=== PATIENT | female | born 1955 | race Caucasian/White ===

== ENCOUNTER 2017-12-06 05:11 | Emergency (ER) | payer BC ==
[2017-12-06] MEDS ORDERED: Pepcid 20 MG VIAL IV ONE ×2 (05:32→05:49)
[2017-12-06] MEDS ORDERED: MORPHINE SULFATE 2 MG INJ IV ONE (05:32)
[2017-12-06] MEDS ORDERED: Phenergan 25 MG INJ IV ONE (05:32)
[2017-12-06 05:37] VITALS: O2SAT 100
[2017-12-06] MEDS ORDERED: Ativan 2 MG/1 ML VIAL IV ONE (05:37)
--- NOTE | 2017-12-06 05:43 | ERPHSYRPT ---
- History of Present Illness Historian: patient, family Patient Subjective Stated Complaint: pt arrives to ER with c/o chronic mid/ lower abdominal pain since 20 years old (diagnosed as "spasmatic stomach") that is exacerbated started early Sunday morning, went away on its own during the day, came back again yesterday evening and became worse approx 0400 this morning. pt is bellowing out loudly in pain and is not cooperative during assessment d/t excessive crying and moaning stating "I don't want to do it anymore". Also c/o nausea without vomiting, denies diarrhea, dysuria, hematura, blood in stool, fever or any other sx. Admits to using meth and marijuana to treat her pain. During doctor assessment pt becoming verbally aggressive with family. Triage Nursing Assessment: Pt hyperventilating with crying. Pt bowel sounds hypoactive states has been 2 days since last BM which is normal for her. pt abdomen is tender to touch but result may be skewed by fact pt is crying out in pain. Timing/Duration: yesterday, intermittent, gradual onset Activities at Onset: rest Quality: cramping, sharpness Abdominal Pain Onset Location: periumbilical Pain Radiation: no radiation Severity of Pain-Max: moderate Severity of Pain-Current: severe Modifying Factors: Improves With: other (states methamphetamine makes abdominal pain better) Associated Symptoms: heartburn, loss of appetite, nausea, No back, No chest pain , No diaphoresis, No diarrhea, No fever/chills, No shortness of breath, No syncope, No vomiting, No weakness Previous symptoms: same symptoms as today Hx Tetanus, Diphtheria Vaccination/Date Given: Yes Hx Influenza Vaccination/Date Given: Yes Hx Pneumococcal Vaccination/Date Given: Yes Immunizations Up to Date: Yes <MALIKA COLEMAN - Last Filed: 12/06/17 07:02> <EMMANUELLE WEINSTEIN - Last Filed: 12/06/17 08:01> - History of Present Illness Time Seen by Provider: 12/06/17 05:24 Physician History: Patient with history of chronic abdominal pain, presents with abdominal pain for past 2 days. States pain is in the periumbilical area, sharp constant and localized. Patient states pain increased in severity at around 4:30 this morning. Patient with nausea but denies vomiting/diarrhea, no fever, back pain or urinary symptoms. Patient admits to using marijuana daily and also methamphetamines to help with abdominal pain. Patient denies any chest pain, shortness of breath, palpitation, dizziness or weakness. Patient states last bowel movement was 2 days ago, which is not unusual. Patient's had multiple visits previously with abdominal pain and anxiety (MALIKA COLEMAN) Allergies/Adverse Reactions: No Known Drug Allergies Allergy (Verified 02/08/16 13:01) Home Medications: Albuterol Sulfate Mdi [Proair Hfa MDI] 1.25 mg NEB PRN 12/06/17 [History] Benzonatate 100 mg [Tessalon Perles 100 MG] 100 mg PO PRN 12/06/17 [ History] - Review of Systems Constitutional: No Fever, No Chills Eyes: No Symptoms Ears, Nose, & Throat: No Symptoms Respiratory: No Symptoms, No Cough, No Dyspnea Cardiac: No Symptoms, No Chest Pain, No Edema, No Syncope Abdominal/Gastrointestinal: Abdominal Pain, Constipation, No Nausea, No Vomiting , No Diarrhea, No Dysphagia, No Appetite Changes Genitourinary Symptoms: No Symptoms, No Dysuria Musculoskeletal: No Symptoms, No Back Pain, No Neck Pain Skin: No Symptoms, No Rash Neurological: No Symptoms, No Dizziness, No Focal Weakness, No Sensory Changes Psychological: No Symptoms Endocrine: No Symptoms Hematologic/Lymphatic: No Symptoms All Other Systems: Reviewed and Negative <MALIKA COLEMAN - Last Filed: 12/06/17 07:02> - Past Medical History Pertinent Past Medical History: Yes Neurological History: Stroke ENT History: Cataracts Cardiac History: Aneurysm Respiratory History: Emphysema, Pneumonia Endocrine Medical History: No Pertinent History Musculoskeletal History: No Pertinent History GI Medical History: Other History: No Pertinent History Psycho-Social History: Anxiety, Depression Female Reproductive Disorders: No Pertinent History Other Medical History: Chronic Abdominal pain; Hepatitis B - Past Surgical History Past Surgical History: Yes Neuro Surgical History: Neurological Surgery Cardiac: No Pertinent History Respiratory: No Pertinent History Gastrointestinal: Other Genitourinary: No Pertinent History Musculoskeletal: No Pertinent History Female Surgical History: No Pertinent History Other Surgical History: Exploratory abdominal surgery - Social History Smoking Status: Current every day smoker How long have you smoked: 40 Exposure to second hand smoke: Yes Drug Use: marijuana, methamphetamines Patient Lives Alone: No - Female History Hx Now: No <MALIKA COLEMAN - Last Filed: 12/06/17 07:02> - Physical Exam General Appearance: moderate distress, alert, anxiety, thin Eye Exam: PERRL/EOMI, eyes nml inspection Ears, Nose, Throat Exam: normal ENT inspection, pharynx normal, moist mucous membranes Neck Exam: normal inspection, non-tender, supple, full range of motion Respiratory Exam: normal breath sounds, lungs clear, No respiratory distress Cardiovascular Exam: regular rate/rhythm, normal heart sounds Gastrointestinal/Abdomen Exam: soft, tenderness (periumbilical area), No distention, No mass, No guarding, No pulsatile mass, No rebound Pelvic Exam: not done Rectal Exam: deferred Back Exam: normal inspection, normal range of motion, No CVA tenderness, No vertebral tenderness Extremity Exam: normal inspection, normal range of motion, pelvis stable Neurologic Exam: alert, oriented x 3, cooperative, normal mood/affect, nml cerebellar function, sensation nml, No motor deficits Skin Exam: normal color, warm, dry SpO2: 100 Oxygen Delivery: Room Air <MALIKA COLEMAN - Last Filed: 12/06/17 07:02> - Nursing Vital Signs Nursing Vital Signs: Initial Vital Signs Temperature 98.5 F 12/06/17 05:17 Pulse Rate 84 12/06/17 05:17 Respiratory Rate 24 12/06/17 05:17 Blood Pressure 162/124 12/06/17 05:17 O2 Sat by Pulse Oximetry 100 12/06/17 05:17 Pain Scale Pain Intensity 0 - Course Nursing assessment & vital signs reviewed: Yes EKG Interpreted by Me: RATE (78), Sinus Rhythm, NORMAL AXIS, NORMAL INTERVALS, NORMAL QRS, Non-specific ST Changes <MALIKA COLEMAN - Last Filed: 12/06/17 07:02> - CT Exams Abdomen/Pelvis CT Interpretation: Tele-radiologist Report, Normal Appendix, No appendicitis, Other (mild distal esophageal thickening: possible esophagitis per Dr Mojica.) <EMMANUELLE WEINSTEIN - Last Filed: 12/06/17 08:01> Ordered Tests: Active Orders 24 hr Category Date Time Status EKG-ER Only STAT Care 12/06/17 05:32 Active IV Insertion STAT Care 12/06/17 05:32 Active NPO (ED) STAT Care 12/06/17 05:32 Active ABDOMEN AND PELVIS W CONTRAST [CT] Stat Exams 12/06/17 05:34 Taken AMYLASE Stat Lab 12/06/17 05:35 Completed CBC W DIFF Stat Lab 12/06/17 05:35 Completed CMP Stat Lab 12/06/17 05:35 Completed LIPASE Stat Lab 12/06/17 05:35 Completed Lactic Acid Stat Lab 12/06/17 05:32 Completed UA W/ MICROSCOPIC Stat Lab 12/06/17 07:08 Completed Urine Triage Profile Stat Lab 12/06/17 07:08 Completed Medication Summary Discontinued Medications Generic Name Dose Route Start Last Admin Trade Name Freq PRN Reason Stop Dose Admin Famotidine 20 mg 12/06/17 05:32 12/06/17 06:03 Pepcid 20 Mg Vial IV 12/06/17 05:33 20 mg STAT ONE Administration Famotidine Confirm 12/06/17 05:49 Pepcid 20 Mg Vial Administered 12/06/17 05:50 Dose 20 mg IV .STK-MED ONE Sodium Chloride 500 mls @ 999 mls/hr 12/06/17 05:32 12/06/17 06:04 Sodium Chloride 0.9% 1000 Ml IV 12/06/17 06:02 999 mls/hr .Q31M STA Administration Sodium Chloride Confirm 12/06/17 05:49 Sodium Chloride 0.9% 1000 Ml Administered 12/06/17 05:50 Dose 1,000 mls @ ud .ROUTE .STK-MED ONE Lorazepam 1 mg 12/06/17 05:37 12/06/17 06:02 Ativan 2 Mg/1 Ml Vial IV 12/06/17 05:38 1 mg STAT ONE Administration Lorazepam Confirm 12/06/17 05:48 Ativan 2 Mg/1 Ml Vial Administered 12/06/17 05:49 Dose 2 mg .ROUTE .STK-MED ONE Morphine Sulfate 2 mg 12/06/17 05:32 12/06/17 06:03 Morphine Sulfate 2 Mg Inj IV 12/06/17 05:33 2 mg STAT ONE Administration Morphine Sulfate Confirm 12/06/17 05:49 Morphine Sulfate 2 Mg Inj Administered 12/06/17 05:50 Dose 2 mg .ROUTE .STK-MED ONE Promethazine HCl 12.5 mg 12/06/17 05:32 12/06/17 06:03 Phenergan 25 Mg Inj IV 12/06/17 05:33 12.5 mg STAT ONE Administration Promethazine HCl Confirm 12/06/17 05:48 Phenergan 25 Mg Inj Administered 12/06/17 05:49 Dose 25 mg .ROUTE .STK-MED ONE Lab/Rad Data: Laboratory Result Diagrams 12/06/17 05:35 12/06/17 05:35 Laboratory Results 12/06/17 12/06/17 12/06/17 Range/Units 07:08 07:08 05:35 WBC (4.0-10.5) K/mm3 RBC (4.1-5.4) M/mm3 Hgb (12.0-16.0) gm/dl Hct (35-47) % MCV (78-100) fl MCH (26-32) pg MCHC (32-36) g/dl RDW (11.5-14.0) % Plt Count (150-450) K/mm3 MPV (6-9.5) fl Gran % (36.0-66.0) % Eos # (Auto) (0-0.5) Absolute Lymphs (auto) (1.0-4.6) Absolute Monos (auto) (0.0-1.3) Lymphocytes % (24.0-44.0) % Monocytes % (0.0-12.0) % Eosinophils % (0.00-5.0) % Basophils % (0.0-0.4) % Absolute Granulocytes (1.4-6.9) Basophils # (0-0.4) Sodium 135 L (137-145) mmol/L Potassium 4.7 (3.5-5.1) mmol/L Chloride 102 (98-107) mmol/L Carbon Dioxide 23 (22-30) mmol/L Anion Gap 15.6 H (5-15) MEQ/L BUN 15 (7-17) mg/dL Creatinine 0.91 (0.52-1.04) mg/dL Estimated GFR > 60 ML/MIN Glucose 115 H (74-106) mg/dL Lactic Acid (0.4-2.0) Calcium 9.7 (8.4-10.2) mg/dL Total Bilirubin 0.80 (0.2-1.3) mg/dL AST 39 H (14-36) U/L ALT 18 (0-35) U/L Alkaline Phosphatase 93 (38-126) U/L Serum Total Protein 7.7 (6.3-8.2) g/dL Albumin 4.4 (3.5-5.0) g/dL Amylase 109 (30-110) U/L Lipase 86 (23-300) U/L Ur Collection Type CATH Urine Color YELLOW (YELLOW) Urine Appearance CLEAR (CLEAR) Urine pH 7.0 (5-6) Ur Specific [place] 1.010 (1.005-1.025) Urine Protein NEGATIVE (Negative) Urine Ketones NEGATIVE (NEGATIVE) Urine Blood NEGATIVE (0-5) Joel/ul Urine Nitrite NEGATIVE (NEGATIVE) Urine Bilirubin NEGATIVE (NEGATIVE) Urine Urobilinogen NORMAL (0-1) mg/dL Ur Leukocyte Esterase NEGATIVE (NEGATIVE) Urine Microscopic RBC 0-2 (0-2) /HPF Ur Epithelial Cells RARE (FEW) /HPF Urine Culture Reflexed NO (NO) Urine Glucose NEGATIVE (NEGATIVE) mg/dL Urine Opiates Level POSITIVE (NEGATIVE) Ur Methadone NEGATIVE (NEGATIVE) Urine Barbiturates NEGATIVE (NEGATIVE) Ur Phencyclidine (PCP) NEGATIVE (NEGATIVE) Urine Amphetamine POSITIVE (NEGATIVE) U Benzodiazepine Level NEGATIVE (NEGATIVE) Urine Cocaine NEGATIVE (NEGATIVE) Urine Marijuana (THC) POSITIVE (NEGATIVE) Specimen Received 12/06/2017 0708 12/06/17 12/06/17 Range/Units 05:35 05:32 WBC 8.2 (4.0-10.5) K/mm3 RBC 4.48 (4.1-5.4) M/mm3 Hgb 13.3 (12.0-16.0) gm/dl Hct 40.0 (35-47) % MCV 89.3 (78-100) fl MCH 29.7 (26-32) pg MCHC 33.3 (32-36) g/dl RDW 14.6 H (11.5-14.0) % Plt Count 298 (150-450) K/mm3 MPV 11.0 H (6-9.5) fl Gran % 72.2 H (36.0-66.0) % Eos # (Auto) 0.22 (0-0.5) Absolute Lymphs (auto) 1.40 (1.0-4.6) Absolute Monos (auto) 0.61 (0.0-1.3) Lymphocytes % 17.1 L (24.0-44.0) % Monocytes % 7.4 (0.0-12.0) % Eosinophils % 2.7 (0.00-5.0) % Basophils % 0.6 (0.0-0.4) % Absolute Granulocytes 5.92 (1.4-6.9) Basophils # 0.05 (0-0.4) Sodium (137-145) mmol/L Potassium (3.5-5.1) mmol/L Chloride (98-107) mmol/L Carbon Dioxide (22-30) mmol/L Anion Gap (5-15) MEQ/L BUN (7-17) mg/dL Creatinine (0.52-1.04) mg/dL Estimated GFR ML/MIN Glucose (74-106) mg/dL Lactic Acid 1.2 (0.4-2.0) Calcium (8.4-10.2) mg/dL Total Bilirubin (0.2-1.3) mg/dL AST (14-36) U/L ALT (0-35) U/L Alkaline Phosphatase (38-126) U/L Serum Total Protein (6.3-8.2) g/dL Albumin (3.5-5.0) g/dL Amylase (30-110) U/L Lipase (23-300) U/L Ur Collection Type Urine Color (YELLOW) Urine Appearance (CLEAR) Urine pH (5-6) Ur Specific [place] (1.005-1.025) Urine Protein (Negative) Urine Ketones (NEGATIVE) Urine Blood (0-5) Joel/ul Urine Nitrite (NEGATIVE) Urine Bilirubin (NEGATIVE) Urine Urobilinogen (0-1) mg/dL Ur Leukocyte Esterase (NEGATIVE) Urine Microscopic RBC (0-2) /HPF Ur Epithelial Cells (FEW) /HPF Urine Culture Reflexed (NO) Urine Glucose (NEGATIVE) mg/dL Urine Opiates Level (NEGATIVE) Ur Methadone (NEGATIVE) Urine Barbiturates (NEGATIVE) Ur Phencyclidine (PCP) (NEGATIVE) Urine Amphetamine (NEGATIVE) U Benzodiazepine Level (NEGATIVE) Urine Cocaine (NEGATIVE) Urine Marijuana (THC) (NEGATIVE) Specimen Received - Progress Progress: improved Counseled pt/family regarding: lab results, diagnosis, rad results <MALIKA COLEMAN - Last Filed: 12/06/17 07:02> - Progress Progress: improved Counseled pt/family regarding: need for follow-up <EMMANUELLE WEINSTEIN - Last Filed: 12/06/17 08:01> - Progress Progress Note: 12/06/17 05:44 we'll give patient Pepcid, Phenergan, morphine and Ativan. We'll also get labs including a UA and abdominal CT. patient has had previous abdominal/pelvis CT that was normal. 12/06/17 05:45 12/06/17 06:47 patient's resting very comfortably after medicines given (MALIKA COLEMAN) 12/06/17 07:13 Pt care discussed and care accepted from Dr Coleman at 07:00. (EMMANUELLE WEINSTEIN) - Departure Critical Care Time: No <MALIKA COLEMAN - Last Filed: 12/06/17 07:02> - Departure Time of Disposition: 07:46 Departure Disposition: Home Critical Care Time: No <EMMANUELLE WEINSTEIN - Last Filed: 12/06/17 08:01> - Departure Clinical Impression: Abdominal pain, Anxiety, Chronic abdominal pain, Methamphetamine use, Tetrahydrocannabinol (THC) use disorder, moderate, dependence Condition: Stable Referrals: JORDAN ROBLEDO [Primary Care Provider] - Additional Instructions: You have chronic abdominal pain. By the CT scan you have esophagitis. You also tested positive for methamphetamine and marijuana use. You were given Ativan 1 mg, Phenergan 12-1/2 mg, and morphine 4 mg by IV in the ER. Take omeprazole 20 mg daily. Take Zofran 4 mg ODT every 6 hours as needed. Follow- up within one week with your primary medical doctor for evaluation. Prescriptions: Ondansetron ODT 4 MG [Zofran Odt 4 mg] 1 tab PO Q6H PRN PRN #10 tab.rapdis PRN Reason: Nausea/Vomiting Omeprazole 20 mg PO DAILY #14 capsule.
[2017-12-06] MEDS ORDERED: Phenergan 25 MG INJ ONE (05:48)
[2017-12-06] MEDS ORDERED: Ativan 2 MG/1 ML VIAL ONE (05:48)
[2017-12-06] MEDS ORDERED: Sodium Chloride 0.9% 1000 ML 1,000 ML ONE (05:49)
[2017-12-06] MEDS ORDERED: MORPHINE SULFATE 2 MG INJ ONE (05:49)
[2017-12-06 05:59] LABS: BASOPHIL % 0.6 % (0.0-0.4); Basophil (Absolute #) 0.05 (0-0.4); Eosinophil % 2.7 % (0.00-5.0); Eosinophil (Absolute #) 0.22 (0-0.5); Granulocyte Absolute (ANC) 5.92 (1.4-6.9); Granulocytes % 72.2 % (36.0-66.0); Hemoglobin 13.3 gm/dl (12.0-16.0); Lymphocytes % 17.1 % (24.0-44.0); Mean Cell Volume 89.3 fl (78-100); Mean Corpuscular Hemoglobin 29.7 pg (26-32); Mean Corpuscular Hgb Concent. 33.3 g/dl (32-36); Monocyte (Absolute #) 0.61 (0.0-1.3); Monocytes % 7.4 % (0.0-12.0); Platelet Count 298 K/mm3 (150-450); Red Blood Count 4.48 M/mm3 (4.1-5.4); Red Cell Distribution Width 14.6 % (11.5-14.0); White Blood Count 8.2 K/mm3 (4.0-10.5)
[2017-12-06 06:29] LABS: ALBUMIN 4.4 g/dL (3.5-5.0); ALKALINE PHOSPHATASE 93 U/L (38-126); AMYLASE 109 U/L (30-110); ANION GAP 15.6 MEQ/L (5-15); BLOOD UREA NITROGEN 15 mg/dL (7-17); CHLORIDE 102 mmol/L (98-107); Calcium 9.7 mg/dL (8.4-10.2); Carbon Dioxide 23 mmol/L (22-30); Creatinine 1 0.91 mg/dL (0.52-1.04); Glucose 115 mg/dL (74-106); LIPASE 86 U/L (23-300); SGOT/AST 39 U/L (14-36); SGPT/ALT 18 U/L (0-35); SODIUM 135 mmol/L (137-145); Total Protein 7.7 g/dL (6.3-8.2)
[2017-12-06 06:35] LABS: Potassium 4.7 mmol/L (3.5-5.1)
[2017-12-06 07:12] LABS: Barbiturate,Urine NEGATIVE (NEGATIVE); Benzodiazepine,Urine NEGATIVE (NEGATIVE); Cocaine,Urine NEGATIVE (NEGATIVE); Methadone,Urine NEGATIVE (NEGATIVE); Opiate,Urine POSITIVE (NEGATIVE); PCP,Urine NEGATIVE (NEGATIVE); THC,Urine POSITIVE (NEGATIVE)
[2017-12-06 07:19] LABS: Appearance CLEAR (CLEAR); Bilirubin NEGATIVE (NEGATIVE); Blood NEGATIVE Ery/ul (0-5); Epithelial Cells RARE /HPF (FEW); Glucose NEGATIVE (NEGATIVE); Ketones NEGATIVE (NEGATIVE); Leukocyte Esterase NEGATIVE (NEGATIVE); Nitrite NEGATIVE (NEGATIVE); Protein,Urine Dip NEGATIVE (Negative); Urobilinogen NORMAL mg/dL (0-1)
[2017-12-06 07:36] VITALS: BP 141/118; PULSE 82
[2017-12-06 07:41] LABS: Amphetamine,Urine POSITIVE (NEGATIVE)
--- NOTE | 2017-12-06 08:57 | XRAY ---
Indication: Mid abdominal pain. Multiple contiguous axial images obtained through the abdomen and pelvis using 80 cc Isovue 370 contrast only. Comparison: March 02, 2015. Several images through the abdomen/pelvis slightly degraded by motion artifact. Lung bases again demonstrates bibasilar pulmonary emphysema and fibrosis. No infiltrate or effusion. Heart is not enlarged. Stable small pericardial effusion. Distal esophagus now demonstrates mild circumferential wall thickening, possible esophagitis. Noncontrasted stomach and bowel loops appear nonobstructed. Normal appendix. No free fluid/air. Stable 1.2 cm hepatic hemangioma adjacent to the falciform ligament. Stable tiny 4 mm left mid renal cortical cyst. Urinary bladder is now markedly distended either neurogenic bladder versus elevated obstruction. Remaining liver, gallbladder, pancreas, spleen, adrenal glands, kidneys, ureters, and uterus appear unremarkable. Moderate aortoiliac calcifications. No AAA or pathologic retroperitoneal lymphadenopathy. Osseous structures intact again with mild multilevel degenerative changes.. Impression: 1. Minimal motion artifact. 2. New distal esophageal wall thickening. Rule out esophagitis. 3. New markedly distended urinary bladder. Rule out neurogenic bladder versus outlet obstruction. 4. Stable pulmonary emphysema, small pericardial effusion, hepatic hemangioma, and left renal cyst. CT DI 8.09
== END 2017-12-06 08:22 | disposition home or self-care (01) ==
LOC: ED 05:11
DX: R10.9 Unspecified abdominal pain (principal); F41.8 Other specified anxiety disorders; F19.90 Other psychoactive substance use, unspecified, uncomplicated; F12.90 Cannabis use, unspecified, uncomplicated; B19.10 Unspecified viral hepatitis B without hepatic coma; Z72.0 Tobacco use; Z79.899 Other long term (current) drug therapy
CPT/HCPCS: 36000; 36415; 74177; 80053; 80307; 81000; 82150; 83605; 83690; 85025; 93005; 96374; 96375; 99283; 99284; J2060; J2270; J2550; P9612

== ENCOUNTER 2017-12-13 00:04 | Emergency (ER) | payer BC ==
[2017-12-13 00:44] VITALS: BP 134/103
[2017-12-13] MEDS ORDERED: Sodium Chloride 0.9% 1000 ML 1,000 ML IV STA (00:59)
[2017-12-13] MEDS ORDERED: Hydromorphone 1 mg/ml Ampule IV ONE (00:59)
[2017-12-13] MEDS ORDERED: Zofran 4 MG/2 ML VIAL IV ONE (00:59)
[2017-12-13] MEDS ORDERED: BENADRYL 50 MG/ML IV ONE (01:01)
--- NOTE | 2017-12-13 01:03 | ERPHSYRPT ---
- History of Present Illness Time Seen by Provider: 12/13/17 00:50 Historian: patient Exam Limitations: clinical condition Patient Subjective Stated Complaint: Pain in lower mid abdomen Triage Nursing Assessment: Pt A&O x3, comes in with complaints of pain in her mid lower abdomen, was here last week for the same symptoms, bowel sounds in all 4 quadrants, pulses normal, Physician History: PATIENT WITH A HISTORY OF CHRONIC ABDOMINAL PAIN X 40 YEARS, COMPLAINS OF SEVERE PAIN PAST 24 HOURS ASSOCIATED WITH NAUSEA, DRY HEAVES. DENIES FEVER OR DIARRHEA. EVALUATED IN EMERGENCY 12/06/[address] SCAN INTRAVENOUS CONTRAST CONSISTENT WITH NEW DISTAL ESOPHAGEAL WALL THICKENING AND NEW MARKEDLY DISTENDED URINARY BLADDER. Timing/Duration: today Activities at Onset: none Quality: sharpness, stabbing Abdominal Pain Onset Location: generalized abdomen Pain Radiation: no radiation Severity of Pain-Max: severe Severity of Pain-Current: severe Modifying Factors: Improves With: vomiting Associated Symptoms: nausea, vomiting Previous symptoms: same symptoms as today Allergies/Adverse Reactions: No Known Drug Allergies Allergy (Verified 02/08/16 13:01) Home Medications: Albuterol Sulfate Mdi [Proair Hfa MDI] 1.25 mg NEB UD PRN 12/06/17 [ History] Hx Tetanus, Diphtheria Vaccination/Date Given: Yes Hx Influenza Vaccination/Date Given: Yes Hx Pneumococcal Vaccination/Date Given: Yes - Review of Systems Constitutional: No Symptoms, No Fever, No Chills Eyes: No Symptoms Ears, Nose, & Throat: No Symptoms Respiratory: No Cough, No Dyspnea Cardiac: No Chest Pain, No Edema, No Syncope Abdominal/Gastrointestinal: Abdominal Pain, No Nausea, No Vomiting, No Diarrhea Genitourinary Symptoms: No Dysuria Musculoskeletal: No Back Pain, No Neck Pain Skin: No Rash Neurological: No Symptoms, No Dizziness, No Focal Weakness, No Sensory Changes Psychological: No Symptoms Endocrine: No Symptoms All Other Systems: Reviewed and Negative - Past Medical History Pertinent Past Medical History: Yes Neurological History: Stroke ENT History: Cataracts Cardiac History: Aneurysm Respiratory History: Emphysema, Pneumonia Endocrine Medical History: No Pertinent History Musculoskeletal History: No Pertinent History GI Medical History: Other History: No Pertinent History Psycho-Social History: Anxiety, Depression Female Reproductive Disorders: No Pertinent History Other Medical History: Chronic Abdominal pain; Hepatitis B - Past Surgical History Past Surgical History: Yes Neuro Surgical History: Neurological Surgery Cardiac: No Pertinent History Respiratory: No Pertinent History Gastrointestinal: Other Genitourinary: No Pertinent History Musculoskeletal: No Pertinent History Female Surgical History: No Pertinent History Other Surgical History: Exploratory abdominal surgery - Social History Smoking Status: Current every day smoker How long have you smoked: 40 Exposure to second hand smoke: Yes Drug Use: marijuana, methamphetamines Patient Lives Alone: No - Nursing Vital Signs Nursing Vital Signs: Initial Vital Signs Temperature 97.9 F 12/13/17 00:34 Blood Pressure 134/103 12/13/17 00:34 Pain Scale Pain Intensity 10 - Physical Exam General Appearance: severe distress, other (HYPERVENTILATING) Eye Exam: PERRL/EOMI, eyes nml inspection Ears, Nose, Throat Exam: normal ENT inspection, pharynx normal, moist mucous membranes Neck Exam: normal inspection, non-tender, supple, full range of motion Respiratory Exam: normal breath sounds, lungs clear, No respiratory distress Cardiovascular Exam: regular rate/rhythm, normal heart sounds Gastrointestinal/Abdomen Exam: soft, normal bowel sounds, other (NO GUARDING OR REBOUND TENDERNESS), No tenderness (PERIUMBILICAL TENDERNESS), No mass Back Exam: normal inspection, normal range of motion, No CVA tenderness, No vertebral tenderness Extremity Exam: normal inspection, normal range of motion, pelvis stable Neurologic Exam: alert, oriented x 3, cooperative, normal mood/affect, nml cerebellar function, sensation nml, No motor deficits Skin Exam: normal color, warm, dry SpO2 Interpretation: normal SpO2: 97 Oxygen Delivery: Room Air Ordered Tests: Active Orders 24 hr Category Date Time Status Clean Catch Urine Specimen STAT Care 12/13/17 00:59 Active IV Insertion STAT Care 12/13/17 00:59 Active ABDOMEN AND PELVIS W CONTRAST [CT] Stat Exams 12/13/17 00:59 Taken AMYLASE Stat Lab 12/13/17 01:40 Completed BLOOD CULTURE Stat Lab 12/13/17 01:30 Received CBC W DIFF Stat Lab 12/13/17 01:40 Completed CMP Stat Lab 12/13/17 01:40 Completed LIPASE Stat Lab 12/13/17 01:40 Completed UA W/RFX UR CULTURE Stat Lab 12/13/17 00:59 Completed Medication Summary Discontinued Medications Generic Name Dose Route Start Last Admin Trade Name Freq PRN Reason Stop Dose Admin Diphenhydramine HCl 25 mg 12/13/17 01:01 12/13/17 01:39 Benadryl 50 Mg/Ml IV 12/13/17 01:02 25 mg STAT ONE Administration Diphenhydramine HCl Confirm 12/13/17 01:15 Benadryl 50 Mg/Ml Administered 12/13/17 01:16 Dose 50 mg .ROUTE .STK-MED ONE Hydromorphone HCl 1 mg 12/13/17 00:59 12/13/17 01:38 Hydromorphone 1 Mg/Ml Ampule IV 12/13/17 01:00 1 mg STAT ONE Administration Hydromorphone HCl Confirm 12/13/17 01:16 Dilaudid 2 Mg Injection Administered 12/13/17 01:17 Dose 2 mg .ROUTE .STK-MED ONE Sodium Chloride 1,000 mls @ 500 mls/hr 12/13/17 00:59 12/13/17 01:38 Sodium Chloride 0.9% 1000 Ml IV 12/13/17 02:58 500 mls/hr .Q2H STA Administration Sodium Chloride Confirm 12/13/17 01:16 Sodium Chloride 0.9% 1000 Ml Administered 12/13/17 01:17 Dose 1,000 mls @ ud .ROUTE .STK-MED ONE Ondansetron HCl 4 mg 12/13/17 00:59 12/13/17 01:39 Zofran 4 Mg/2 Ml Vial IV 12/13/17 01:00 4 mg STAT ONE Administration Ondansetron HCl Confirm 12/13/17 01:15 Zofran 4 Mg/2 Ml Vial Administered 12/13/17 01:16 Dose 4 mg .ROUTE .STK-MED ONE Lab/Rad Data: Laboratory Result Diagrams 12/13/17 01:40 12/13/17 01:40 Laboratory Results 12/13/17 12/13/17 12/13/17 Range/Units 01:40 01:40 00:59 WBC 8.3 (4.0-10.5) K/mm3 RBC 3.66 L (4.1-5.4) M/mm3 Hgb 10.8 L (12.0-16.0) gm/dl Hct 33.4 L (35-47) % MCV 91.3 (78-100) fl MCH 29.5 (26-32) pg MCHC 32.3 (32-36) g/dl RDW 15.2 H (11.5-14.0) % Plt Count 270 (150-450) K/mm3 MPV 10.6 H (6-9.5) fl Gran % 73.8 H (36.0-66.0) % Eos # (Auto) 0.26 (0-0.5) Absolute Lymphs (auto) 1.22 (1.0-4.6) Absolute Monos (auto) 0.66 (0.0-1.3) Lymphocytes % 14.7 L (24.0-44.0) % Monocytes % 7.9 (0.0-12.0) % Eosinophils % 3.1 (0.00-5.0) % Basophils % 0.5 (0.0-0.4) % Absolute Granulocytes 6.13 (1.4-6.9) Basophils # 0.04 (0-0.4) Sodium 138 (137-145) mmol/L Potassium 4.0 (3.5-5.1) mmol/L Chloride 104 (98-107) mmol/L Carbon Dioxide 26 (22-30) mmol/L Anion Gap 12.1 (5-15) MEQ/L BUN 17 (7-17) mg/dL Creatinine 1.02 (0.52-1.04) mg/dL Estimated GFR 58.8 ML/MIN Glucose 109 H (74-106) mg/dL Calcium 9.2 (8.4-10.2) mg/dL Total Bilirubin 0.50 (0.2-1.3) mg/dL AST 23 (14-36) U/L ALT 14 (0-35) U/L Alkaline Phosphatase 91 (38-126) U/L Serum Total Protein 6.6 (6.3-8.2) g/dL Albumin 4.0 (3.5-5.0) g/dL Amylase 108 (30-110) U/L Lipase 107 (23-300) U/L Ur Collection Type CLEAN CATCH Urine Color LT.YELLOW (YELLOW) Urine Appearance CLEAR (CLEAR) Urine pH 7.0 (5-6) Ur Specific [place] 1.010 (1.005-1.025) Urine Protein NEGATIVE (Negative) Urine Ketones NEGATIVE (NEGATIVE) Urine Blood NEGATIVE (0-5) Joel/ul Urine Nitrite NEGATIVE (NEGATIVE) Urine Bilirubin NEGATIVE (NEGATIVE) Urine Urobilinogen NORMAL (0-1) mg/dL Ur Leukocyte Esterase NEGATIVE (NEGATIVE) Urine Culture Reflexed NO (NO) Urine Glucose 100 (NEGATIVE) mg/dL Specimen Received 12/12/17 0059 - Progress Progress: improved Progress Note: 12/13/17 03:32 IV NORMAL SALINE 200ML/HR, BENADRYL 25MG, DILAUDID 1MG IV, LEVAQUIN 500MG ORALLY 12/13/17 03:33 Counseled pt/family regarding: lab results, diagnosis, need for follow-up, rad results - Departure Time of Disposition: 03:45 Departure Disposition: Home Clinical Impression: ABDOMINAL PAIN, EARY COLITIS Condition: Stable Critical Care Time: No Referrals: JORDAN ROBLEDO [Primary Care Provider] - Additional Instructions: BEGIN PERCOGESIC EVERY 4 HOURS NEEDED FOR PAIN. ZOFRAN 4MG EVERY 4 HOURS NEEDED FOR NAUSEA. ANTIBIOTIC LEVAQUIN 500MG DAILY FOR 10 DAYS. CONSULT YOUR PRIMARY CARE PROVIDER TODAY TO SCHEDULE APPOINTMENT. Prescriptions: Acetaminophen/Diphenhydramine [Percogesic 325-12.5 mg Tablet] 1 each PO Q4H PRN PRN #15 tablet PRN Reason: Pain Ondansetron ODT 4 MG [Zofran Odt 4 mg] 4 mg PO Q6H PRN PRN #10 tab.rapdis PRN Reason: Nausea Levofloxacin [Levaquin] 500 mg PO DAILY #10 tablet
[2017-12-13] MEDS ORDERED: BENADRYL 50 MG/ML ONE (01:15)
[2017-12-13] MEDS ORDERED: Zofran 4 MG/2 ML VIAL ONE (01:15)
[2017-12-13] MEDS ORDERED: Sodium Chloride 0.9% 1000 ML 1,000 ML ONE (01:16)
[2017-12-13] MEDS ORDERED: DILAUDID 2 MG INJECTION ONE (01:16)
[2017-12-13 01:49] LABS: BASOPHIL % 0.5 % (0.0-0.4); Basophil (Absolute #) 0.04 (0-0.4); Eosinophil % 3.1 % (0.00-5.0); Eosinophil (Absolute #) 0.26 (0-0.5); Granulocyte Absolute (ANC) 6.13 (1.4-6.9); Granulocytes % 73.8 % (36.0-66.0); Hematocrit 33.4 % (35-47); Hemoglobin 10.8 gm/dl (12.0-16.0); Lymphocyte (Absolute #) 1.22 (1.0-4.6); Lymphocytes % 14.7 % (24.0-44.0); Mean Cell Volume 91.3 fl (78-100); Mean Corpuscular Hemoglobin 29.5 pg (26-32); Mean Corpuscular Hgb Concent. 32.3 g/dl (32-36); Mean Platelet Volume 10.6 fl (6-9.5); Monocyte (Absolute #) 0.66 (0.0-1.3); Monocytes % 7.9 % (0.0-12.0); Platelet Count 270 K/mm3 (150-450); Red Blood Count 3.66 M/mm3 (4.1-5.4); Red Cell Distribution Width 15.2 % (11.5-14.0); White Blood Count 8.3 K/mm3 (4.0-10.5)
[2017-12-13 02:03] LABS: Appearance CLEAR (CLEAR)
[2017-12-13 02:04] LABS: Bilirubin NEGATIVE (NEGATIVE); Blood NEGATIVE Ery/ul (0-5); Glucose 100 mg/dL (NEGATIVE); Ketones NEGATIVE (NEGATIVE); Leukocyte Esterase NEGATIVE (NEGATIVE); Nitrite NEGATIVE (NEGATIVE); Protein,Urine Dip NEGATIVE (Negative); Urobilinogen NORMAL mg/dL (0-1)
[2017-12-13 02:09] LABS: ANION GAP 12.1 MEQ/L (5-15); BILIRUBIN,TOTAL 0.5 mg/dL (0.2-1.3); Calcium 9.2 mg/dL (8.4-10.2); Creatinine 1 1.02 mg/dL (0.52-1.04); Total Protein 6.6 g/dL (6.3-8.2)
[2017-12-13 03:40] VITALS: O2SAT 97
[2017-12-13] MEDS ORDERED: ZOFRAN ODT 4 MG PO ONE (03:43)
[2017-12-13] MEDS ORDERED: Levofloxacin 500 MG Tablet PO ONE (03:45)
[2017-12-13] MEDS ORDERED: ZOFRAN ODT 4 MG ONE (03:47)
[2017-12-13] MEDS ORDERED: Levofloxacin 500 MG Tablet ONE (03:47)
--- NOTE | 2017-12-13 08:55 | XRAY ---
Indication: Intractable abdominal pain. Multiple contiguous axial images obtained through the abdomen and pelvis using 80 cc Isovue 370 contrast only. Comparison: December 06, 2017. Lung bases again demonstrates bibasilar pulmonary emphysema and fibrosis. No infiltrate or effusion. Heart is not enlarged again with small pericardial effusion. Noncontrasted stomach and bowel loops remain nonobstructed. Normal appendix. No free fluid/air. Stable tiny 4 mm left mid renal cortical cyst. Remaining liver, gallbladder, pancreas, spleen, adrenal glands, kidneys, ureters, bladder, and uterus again appears unremarkable. Stable aortoiliac calcifications. No AAA or pathologic retroperitoneal lymphadenopathy. Osseous structures intact again with mild multilevel degenerative changes. Impression: 1. Stable pulmonary emphysema, small pericardial effusion, and left renal cyst. 2. No new or acute intra-abdominal/pelvic abnormalities. Comment: Preliminary interpretation was made by [facility]. No critical discrepancy. CT DI 8.07
== END 2017-12-13 04:08 | disposition home or self-care (01) ==
LOC: ED 00:04
DX: R10.84 Generalized abdominal pain (principal); R11.2 Nausea with vomiting, unspecified; K52.9 Noninfective gastroenteritis and colitis, unspecified
CPT/HCPCS: 36415; 74177; 80053; 81002; 82150; 83690; 85025; 87040; 96360; 96361; 96374; 96375; 99284; J1170; J1200; J2405; Q0162; A9270-GY

== ENCOUNTER 2017-12-22 17:49 | Observation (INO) | payer BC ==
[2017-12-22] MEDS ORDERED: Phenergan 25 MG INJ IV ONE (18:01)
[2017-12-22] MEDS ORDERED: Sodium Chloride 0.9% 1000 ML 1,000 ML IV STA (18:01)
[2017-12-22] MEDS ORDERED: SUBLIMAZE 100 MCG/2 ML IV ONE (18:01)
--- NOTE | 2017-12-22 18:06 | ERPHSYRPT ---
- History of Present Illness Historian: patient, family () Exam Limitations: no limitations Timing/Duration: week(s) Activities at Onset: none Quality: cramping, sharpness Abdominal Pain Onset Location: generalized abdomen Pain Radiation: no radiation Severity of Pain-Max: moderate Severity of Pain-Current: moderate Modifying Factors: Improves With: eating, vomiting Associated Symptoms: loss of appetite, nausea, vomiting Previous symptoms: same symptoms as today, recently treated Hx Tetanus, Diphtheria Vaccination/Date Given: Yes Hx Influenza Vaccination/Date Given: Yes Hx Pneumococcal Vaccination/Date Given: Yes <EMMANUELLE PEREZ - Last Filed: 12/22/17 18:49> - History of Present Illness Exam Limitations: no limitations Timing/Duration: week(s) <DAMARIS STEPHENSON - Last Filed: 12/22/17 22:46> - History of Present Illness Time Seen by Provider: 12/22/17 17:56 Physician History: PT HAS HAD CHRONIC LOWER ABDOMINAL PAIN SINCE SHE WAS 20 YEARS OLD WITH A FLARE UP TODAY WITH NAUSEA AND VOMITING X2 WITHOUT BLOOD. LAST BM WAS THIS AM & WNL. CHEST PAIN, SHORTNESS OF AIR, FEVER ALL DENIED. (EMMANUELLE PEREZ) Allergies/Adverse Reactions: No Known Drug Allergies Allergy (Verified 12/22/17 18:05) Home Medications: Albuterol Sulfate Mdi [Proair Hfa MDI] 1.25 mg NEB UD PRN 12/06/17 [ History] - Review of Systems Constitutional: No Fever Respiratory: No Dyspnea Cardiac: No Chest Pain Abdominal/Gastrointestinal: Abdominal Pain, Nausea, Vomiting Genitourinary Symptoms: No Symptoms Musculoskeletal: No Symptoms Skin: No Symptoms Neurological: No Symptoms Psychological: No Symptoms Endocrine: No Symptoms Hematologic/Lymphatic: No Symptoms Immunological/Allergic: No Symptoms All Other Systems: Reviewed and Negative <EMMANUELLE PEREZ - Last Filed: 12/22/17 18:49> - Past Medical History Pertinent Past Medical History: Yes Neurological History: Stroke ENT History: Cataracts Cardiac History: Aneurysm Respiratory History: Emphysema, Pneumonia Endocrine Medical History: No Pertinent History Musculoskeletal History: No Pertinent History GI Medical History: Other History: No Pertinent History Psycho-Social History: Anxiety, Depression Female Reproductive Disorders: No Pertinent History Other Medical History: Chronic Abdominal pain; Hepatitis B - Past Surgical History Past Surgical History: Yes Neuro Surgical History: Neurological Surgery Cardiac: No Pertinent History Respiratory: No Pertinent History Gastrointestinal: Other Genitourinary: No Pertinent History Musculoskeletal: No Pertinent History Female Surgical History: No Pertinent History Other Surgical History: Exploratory abdominal surgery - Social History Smoking Status: Current every day smoker How long have you smoked: 40 Exposure to second hand smoke: Yes Drug Use: marijuana, methamphetamines Patient Lives Alone: No <EMMANUELLE PEREZ - Last Filed: 12/22/17 18:49> - Physical Exam General Appearance: moderate distress, alert Eye Exam: PERRL/EOMI Ears, Nose, Throat Exam: dry mucous membranes Neck Exam: normal inspection Respiratory Exam: lungs clear Cardiovascular Exam: normal heart sounds Gastrointestinal/Abdomen Exam: normal bowel sounds, tenderness (DIFFUSE ABDOMINAL TENDERNESS), No distention Pelvic Exam: deferred Rectal Exam: deferred Back Exam: normal range of motion Extremity Exam: normal inspection, No pedal edema Neurologic Exam: alert, cooperative Skin Exam: warm, dry <EMMANUELLE PEREZ - Last Filed: 12/22/17 18:49> - Nursing Vital Signs Nursing Vital Signs: Initial Vital Signs Temperature 97.0 F 12/22/17 17:55 Pulse Rate 100 H 12/22/17 17:55 Respiratory Rate 22 12/22/17 17:55 Blood Pressure 210/145 12/22/17 17:55 O2 Sat by Pulse Oximetry 99 12/22/17 17:55 Pain Scale Pain Intensity 10 - Course Nursing assessment & vital signs reviewed: Yes <EMMANUELLE PEREZ - Last Filed: 12/22/17 18:49> Ordered Tests: Active Orders 24 hr Category Date Time Status Cath for Specimen-Straight STAT Care 12/22/17 18:02 Active EKG-ER Only STAT Care 12/22/17 18:58 Active IV Insertion STAT Care 12/22/17 18:01 Active ABDOMEN AND PELVIS W/0 CONTRAS [CT] Stat Exams 12/22/17 18:01 Ordered AMYLASE Stat Lab 12/22/17 18:25 Completed CBC W DIFF Stat Lab 12/22/17 18:25 Completed CK (IN-HOUSE) [CK-Creatinine Phosphokinase] Stat Lab 12/22/17 22:15 Completed CMP Stat Lab 12/22/17 18:25 Completed LIPASE Stat Lab 12/22/17 18:25 Completed Lactic Acid Stat Lab 12/22/17 22:15 Completed MAG [MAGNESIUM] Stat Lab 12/22/17 18:25 Completed TROPONIN Q3H Lab 12/22/17 18:30 Completed TROPONIN Q3H Lab 12/22/17 22:15 Received TROPONIN Q3H Lab 12/23/17 01:00 Ordered TROPONIN Q3H Lab 12/23/17 04:00 Ordered TROPONIN Q3H Lab 12/23/17 07:00 Ordered UA W/ MICROSCOPIC Stat Lab 12/22/17 19:15 Completed Urine Triage Profile Stat Lab 12/22/17 19:15 Completed Medication Summary Discontinued Medications Generic Name Dose Route Start Last Admin Trade Name Freq PRN Reason Stop Dose Admin Diphenhydramine HCl 25 mg 12/22/17 19:40 12/22/17 20:03 Benadryl 50 Mg/Ml IM 12/22/17 19:41 25 mg STAT ONE Administration Diphenhydramine HCl Confirm 12/22/17 20:02 Benadryl 50 Mg/Ml Administered 12/22/17 20:03 Dose 50 mg .ROUTE .STK-MED ONE Fentanyl Citrate 50 mcg 12/22/17 18:01 12/22/17 18:14 Sublimaze 100 Mcg/2 Ml IV 12/22/17 18:02 100 mcg STAT ONE Administration Fentanyl Citrate Confirm 12/22/17 18:10 Sublimaze 100 Mcg/2 Ml Administered 12/22/17 18:11 Dose 100 mcg .ROUTE .STK-MED ONE Hydralazine HCl 10 mg 12/22/17 20:23 12/22/17 20:29 Apresoline 20 Mg/Ml Inj IM 12/22/17 20:24 10 mg STAT ONE Administration Hydralazine HCl Confirm 12/22/17 20:27 Apresoline 20 Mg/Ml Inj Administered 12/22/17 20:28 Dose 20 mg .ROUTE .STK-MED ONE Sodium Chloride 1,000 mls @ 999 mls/hr 12/22/17 18:01 12/22/17 18:14 Sodium Chloride 0.9% 1000 Ml IV 12/22/17 19:01 999 mls/hr .Q1H1M STA Administration Sodium Chloride Confirm 12/22/17 18:10 Sodium Chloride 0.9% 1000 Ml Administered 12/22/17 18:11 Dose 1,000 mls @ ud .ROUTE .STK-MED ONE Ketamine HCl 8 mg 12/22/17 19:27 12/22/17 19:59 Ketamine Hcl 50 Mg/Ml IM 12/22/17 19:28 8 mg STAT ONE Administration Promethazine HCl 12.5 mg 12/22/17 18:01 12/22/17 18:14 Phenergan 25 Mg Inj IV 12/22/17 18:02 Not Given STAT ONE Promethazine HCl Confirm 12/22/17 18:10 Phenergan 25 Mg Inj Administered 12/22/17 18:11 Dose 25 mg .ROUTE .STK-MED ONE Promethazine HCl 25 mg 12/22/17 18:24 12/22/17 18:27 Phenergan 25 Mg Inj IM 12/22/17 18:25 25 mg STAT ONE Administration Promethazine HCl Confirm 12/22/17 18:26 Phenergan 25 Mg Inj Administered 12/22/17 18:27 Dose 25 mg .ROUTE .STK-MED ONE Lab/Rad Data: Laboratory Result Diagrams 12/22/17 18:25 12/22/17 18:25 Laboratory Results 12/22/17 12/22/17 12/22/17 Range/Units 22:15 22:15 19:15 WBC (4.0-10.5) K/mm3 RBC (4.1-5.4) M/mm3 Hgb (12.0-16.0) gm/dl Hct (35-47) % MCV (78-100) fl MCH (26-32) pg MCHC (32-36) g/dl RDW (11.5-14.0) % Plt Count (150-450) K/mm3 MPV (6-9.5) fl Gran % (36.0-66.0) % Eos # (Auto) (0-0.5) Absolute Lymphs (auto) (1.0-4.6) Absolute Monos (auto) (0.0-1.3) Lymphocytes % (24.0-44.0) % Monocytes % (0.0-12.0) % Eosinophils % (0.00-5.0) % Basophils % (0.0-0.4) % Absolute Granulocytes (1.4-6.9) Basophils # (0-0.4) Sodium (137-145) mmol/L Potassium (3.5-5.1) mmol/L Chloride (98-107) mmol/L Carbon Dioxide (22-30) mmol/L Anion Gap (5-15) MEQ/L BUN (7-17) mg/dL Creatinine (0.52-1.04) mg/dL Estimated GFR ML/MIN Glucose (74-106) mg/dL Lactic Acid 1.2 (0.4-2.0) Calcium (8.4-10.2) mg/dL Magnesium (1.6-2.3) mg/dL Total Bilirubin (0.2-1.3) mg/dL AST (14-36) U/L ALT (0-35) U/L Alkaline Phosphatase (38-126) U/L Creatine Kinase 532 H (30-135) U/L Troponin I (0.000-0.034) ng/mL Serum Total Protein (6.3-8.2) g/dL Albumin (3.5-5.0) g/dL Amylase (30-110) U/L Lipase (23-300) U/L Ur Collection Type Urine Color (YELLOW) Urine Appearance (CLEAR) Urine pH (5-6) Ur Specific [place] (1.005-1.025) Urine Protein (Negative) Urine Ketones (NEGATIVE) Urine Blood (0-5) Joel/ul Urine Nitrite (NEGATIVE) Urine Bilirubin (NEGATIVE) Urine Urobilinogen (0-1) mg/dL Ur Leukocyte Esterase (NEGATIVE) Urine Microscopic RBC (0-2) /HPF Ur Epithelial Cells (FEW) /HPF Urine Bacteria (NEGATIVE) /HPF Urine Culture Reflexed (NO) Urine Glucose (NEGATIVE) mg/dL Urine Opiates Level NEGATIVE (NEGATIVE) Ur Methadone NEGATIVE (NEGATIVE) Urine Barbiturates NEGATIVE (NEGATIVE) Ur Phencyclidine (PCP) NEGATIVE (NEGATIVE) Urine Amphetamine POSITIVE (NEGATIVE) U Benzodiazepine Level NEGATIVE (NEGATIVE) Urine Cocaine NEGATIVE (NEGATIVE) Urine Marijuana (THC) POSITIVE (NEGATIVE) Specimen Received 12/22/17 12/22/17 12/22/17 Range/Units 19:15 18:30 18:25 WBC (4.0-10.5) K/mm3 RBC (4.1-5.4) M/mm3 Hgb (12.0-16.0) gm/dl Hct (35-47) % MCV (78-100) fl MCH (26-32) pg MCHC (32-36) g/dl RDW (11.5-14.0) % Plt Count (150-450) K/mm3 MPV (6-9.5) fl Gran % (36.0-66.0) % Eos # (Auto) (0-0.5) Absolute Lymphs (auto) (1.0-4.6) Absolute Monos (auto) (0.0-1.3) Lymphocytes % (24.0-44.0) % Monocytes % (0.0-12.0) % Eosinophils % (0.00-5.0) % Basophils % (0.0-0.4) % Absolute Granulocytes (1.4-6.9) Basophils # (0-0.4) Sodium (137-145) mmol/L Potassium (3.5-5.1) mmol/L Chloride (98-107) mmol/L Carbon Dioxide (22-30) mmol/L Anion Gap (5-15) MEQ/L BUN (7-17) mg/dL Creatinine (0.52-1.04) mg/dL Estimated GFR ML/MIN Glucose (74-106) mg/dL Lactic Acid (0.4-2.0) Calcium (8.4-10.2) mg/dL Magnesium 2.0 (1.6-2.3) mg/dL Total Bilirubin (0.2-1.3) mg/dL AST (14-36) U/L ALT (0-35) U/L Alkaline Phosphatase (38-126) U/L Creatine Kinase (30-135) U/L Troponin I < 0.012 (0.000-0.034) ng/mL Serum Total Protein (6.3-8.2) g/dL Albumin (3.5-5.0) g/dL Amylase (30-110) U/L Lipase (23-300) U/L Ur Collection Type CATH Urine Color YELLOW (YELLOW) Urine Appearance CLEAR (CLEAR) Urine pH 8.0 (5-6) Ur Specific [place] 1.015 (1.005-1.025) Urine Protein 100 (Negative) Urine Ketones MODERATE (NEGATIVE) Urine Blood NEGATIVE (0-5) Joel/ul Urine Nitrite NEGATIVE (NEGATIVE) Urine Bilirubin NEGATIVE (NEGATIVE) Urine Urobilinogen NORMAL (0-1) mg/dL Ur Leukocyte Esterase NEGATIVE (NEGATIVE) Urine Microscopic RBC 0-2 (0-2) /HPF Ur Epithelial Cells FEW (FEW) /HPF Urine Bacteria RARE (NEGATIVE) /HPF Urine Culture Reflexed NO (NO) Urine Glucose 100 (NEGATIVE) mg/dL Urine Opiates Level (NEGATIVE) Ur Methadone (NEGATIVE) Urine Barbiturates (NEGATIVE) Ur Phencyclidine (PCP) (NEGATIVE) Urine Amphetamine (NEGATIVE) U Benzodiazepine Level (NEGATIVE) Urine Cocaine (NEGATIVE) Urine Marijuana (THC) (NEGATIVE) Specimen Received 12/22/17192912/22/17 12/22/17 Range/Units 18:25 18:25 WBC 12.8 H (4.0-10.5) K/mm3 RBC 4.52 (4.1-5.4) M/mm3 Hgb 13.3 (12.0-16.0) gm/dl Hct 39.8 (35-47) % MCV 88.1 (78-100) fl MCH 29.4 (26-32) pg MCHC 33.4 (32-36) g/dl RDW 14.9 H (11.5-14.0) % Plt Count 338 (150-450) K/mm3 MPV 10.8 H (6-9.5) fl Gran % 90.1 H (36.0-66.0) % Eos # (Auto) 0.06 (0-0.5) Absolute Lymphs (auto) 0.84 L (1.0-4.6) Absolute Monos (auto) 0.34 (0.0-1.3) Lymphocytes % 6.5 L (24.0-44.0) % Monocytes % 2.6 (0.0-12.0) % Eosinophils % 0.5 (0.00-5.0) % Basophils % 0.3 (0.0-0.4) % Absolute Granulocytes 11.56 H (1.4-6.9) Basophils # 0.04 (0-0.4) Sodium 135 L (137-145) mmol/L Potassium 4.8 (3.5-5.1) mmol/L Chloride 99 (98-107) mmol/L Carbon Dioxide 22 (22-30) mmol/L Anion Gap 19.2 H (5-15) MEQ/L BUN 20 H (7-17) mg/dL Creatinine 0.94 (0.52-1.04) mg/dL Estimated GFR > 60.0 ML/MIN Glucose 133 H (74-106) mg/dL Lactic Acid (0.4-2.0) Calcium 9.9 (8.4-10.2) mg/dL Magnesium (1.6-2.3) mg/dL Total Bilirubin 0.80 (0.2-1.3) mg/dL AST 36 (14-36) U/L ALT 23 (0-35) U/L Alkaline Phosphatase 113 (38-126) U/L Creatine Kinase (30-135) U/L Troponin I (0.000-0.034) ng/mL Serum Total Protein 8.4 H (6.3-8.2) g/dL Albumin 5.1 H (3.5-5.0) g/dL Amylase 124 H (30-110) U/L Lipase 96 (23-300) U/L Ur Collection Type Urine Color (YELLOW) Urine Appearance (CLEAR) Urine pH (5-6) Ur Specific [place] (1.005-1.025) Urine Protein (Negative) Urine Ketones (NEGATIVE) Urine Blood (0-5) Joel/ul Urine Nitrite (NEGATIVE) Urine Bilirubin (NEGATIVE) Urine Urobilinogen (0-1) mg/dL Ur Leukocyte Esterase (NEGATIVE) Urine Microscopic RBC (0-2) /HPF Ur Epithelial Cells (FEW) /HPF Urine Bacteria (NEGATIVE) /HPF Urine Culture Reflexed (NO) Urine Glucose (NEGATIVE) mg/dL Urine Opiates Level (NEGATIVE) Ur Methadone (NEGATIVE) Urine Barbiturates (NEGATIVE) Ur Phencyclidine (PCP) (NEGATIVE) Urine Amphetamine (NEGATIVE) U Benzodiazepine Level (NEGATIVE) Urine Cocaine (NEGATIVE) Urine Marijuana (THC) (NEGATIVE) Specimen Received - Progress Progress: improved, re-examined Counseled pt/family regarding: lab results, diagnosis, need for follow-up, rad results <EMMANUELLE PEREZ - Last Filed: 12/22/17 18:49> - Progress Progress: improved, re-examined Discussed with : [place] Counseled pt/family regarding: drug and/or alcohol abuse, lab results, diagnosis , need for follow-up, rad results <DAMARIS STEPHENSON - Last Filed: 12/22/17 22:46> - Progress Progress Note: 12/22/17 18:[address] STEPHENSON~ 1845 WHO WILL ASSUME HER CARE. (EMMANUELLE PEREZ) 12/22/17 19:[address] perez after discussion of pending labs and studies - and intro to pt, 12/22/17 19:28 pt has had hx of problems with drug use reported, and still having pain so will try low dose ketamine 12/22/17 21:14 pt does not wish to cooperate for CT at this time which is delaying disposition - we are checking CPK to rule out rhabdo and will discuss admission for her elevated BP drug effects. 12/22/17 22:43 discussed with pt and dr sims covering for Despande and all agree best for obs for delayed rhambdo and agitation from Meth use and serial abd exam as pt di dnot wish repeat after discussion of risk benefit and has the capacity to make that choice . abd now is nontender, 12/22/17 22:45 repear BP was 178/114 after tx. (DAMARIS STEPHENSON) <EMMANUELLE PEREZ - Last Filed: 12/22/17 18:49> - Departure Time of Disposition: 22:45 Departure Disposition: Observation Critical Care Time: No <DAMARIS STEPHENSON - Last Filed: 12/22/17 22:46> - Departure Clinical Impression: Chronic abdominal pain, Intractable abdominal pain, Methamphetamine use Condition: Good Referrals: JORDAN ROBLEDO [Primary Care Provider] -
[2017-12-22] MEDS ORDERED: SUBLIMAZE 100 MCG/2 ML ONE (18:10)
[2017-12-22] MEDS ORDERED: Sodium Chloride 0.9% 1000 ML 1,000 ML ONE (18:10)
[2017-12-22] MEDS ORDERED: Phenergan 25 MG INJ ONE ×2 (18:10→18:26)
[2017-12-22] MEDS ORDERED: Phenergan 25 MG INJ IM ONE (18:24)
[2017-12-22 18:31] LABS: BASOPHIL % 0.3 % (0.0-0.4); Basophil (Absolute #) 0.04 (0-0.4); Eosinophil % 0.5 % (0.00-5.0); Eosinophil (Absolute #) 0.06 (0-0.5); Granulocyte Absolute (ANC) 11.56 (1.4-6.9); Granulocytes % 90.1 % (36.0-66.0); Hematocrit 39.8 % (35-47); Hemoglobin 13.3 gm/dl (12.0-16.0); Lymphocyte (Absolute #) 0.84 (1.0-4.6); Lymphocytes % 6.5 % (24.0-44.0); Mean Cell Volume 88.1 fl (78-100); Mean Corpuscular Hemoglobin 29.4 pg (26-32); Mean Corpuscular Hgb Concent. 33.4 g/dl (32-36); Mean Platelet Volume 10.8 fl (6-9.5); Monocyte (Absolute #) 0.34 (0.0-1.3); Monocytes % 2.6 % (0.0-12.0); Platelet Count 338 K/mm3 (150-450); Red Blood Count 4.52 M/mm3 (4.1-5.4); Red Cell Distribution Width 14.9 % (11.5-14.0); White Blood Count 12.8 K/mm3 (4.0-10.5)
[2017-12-22 18:54] LABS: ALBUMIN 5.1 g/dL (3.5-5.0); ALKALINE PHOSPHATASE 113 U/L (38-126); AMYLASE 124 U/L (30-110); ANION GAP 19.2 MEQ/L (5-15); BLOOD UREA NITROGEN 20 mg/dL (7-17); CHLORIDE 99 mmol/L (98-107); Calcium 9.9 mg/dL (8.4-10.2); Carbon Dioxide 22 mmol/L (22-30); Creatinine 1 0.94 mg/dL (0.52-1.04); Glucose 133 mg/dL (74-106); LIPASE 96 U/L (23-300); Potassium 4.8 mmol/L (3.5-5.1); SGOT/AST 36 U/L (14-36); SGPT/ALT 23 U/L (0-35); SODIUM 135 mmol/L (137-145); Total Protein 8.4 g/dL (6.3-8.2)
[2017-12-22] MEDS ORDERED: Ketamine HCl 50 MG/ML IM ONE (19:27)
[2017-12-22] MEDS ORDERED: BENADRYL 50 MG/ML IM ONE (19:40)
[2017-12-22 19:49] LABS: Barbiturate,Urine NEGATIVE (NEGATIVE); Benzodiazepine,Urine NEGATIVE (NEGATIVE); Cocaine,Urine NEGATIVE (NEGATIVE); Methadone,Urine NEGATIVE (NEGATIVE); Opiate,Urine NEGATIVE (NEGATIVE); PCP,Urine NEGATIVE (NEGATIVE); THC,Urine POSITIVE (NEGATIVE)
[2017-12-22] MEDS ORDERED: BENADRYL 50 MG/ML ONE (20:02)
[2017-12-22] MEDS ORDERED: APRESOLINE 20 MG/ML INJ IM ONE ×2 (20:23→23:54)
[2017-12-22 20:25] LABS: Appearance CLEAR (CLEAR); Bilirubin NEGATIVE (NEGATIVE); Blood NEGATIVE Ery/ul (0-5); Glucose 100 mg/dL (NEGATIVE); Ketones MODERATE (NEGATIVE); Leukocyte Esterase NEGATIVE (NEGATIVE); Nitrite NEGATIVE (NEGATIVE); Protein,Urine Dip 100 (Negative); Specific Gravity 1.015 (1.005-1.025); Urobilinogen NORMAL mg/dL (0-1)
[2017-12-22 20:26] LABS: Bacteria RARE /HPF (NEGATIVE); Epithelial Cells FEW /HPF (FEW)
[2017-12-22 20:27] LABS: Amphetamine,Urine POSITIVE (NEGATIVE)
[2017-12-22] MEDS ORDERED: APRESOLINE 20 MG/ML INJ ONE (20:27)
[2017-12-22] MEDS ORDERED: BENADRYL 25 MG CAPSULE PO PRN (23:45)
[2017-12-22] MEDS ORDERED: NovoLIN R SQ PRN (23:45)
[2017-12-22] MEDS ORDERED: Ativan 1 MG PO PRN (23:45)
[2017-12-22] MEDS ORDERED: Phenergan 25 MG INJ IM PRN (23:45)
[2017-12-23 05:20] LABS: BASOPHIL % 0.2 % (0.0-0.4); Basophil (Absolute #) 0.03 (0-0.4); Eosinophil % 0.1 % (0.00-5.0); Eosinophil (Absolute #) 0.01 (0-0.5); Granulocyte Absolute (ANC) 10.94 (1.4-6.9); Granulocytes % 83.1 % (36.0-66.0); Hematocrit 38.6 % (35-47); Lymphocytes % 9.1 % (24.0-44.0); Mean Cell Volume 86.5 fl (78-100); Mean Corpuscular Hemoglobin 29.1 pg (26-32); Mean Corpuscular Hgb Concent. 33.7 g/dl (32-36); Mean Platelet Volume 11.2 fl (6-9.5); Monocyte (Absolute #) 0.99 (0.0-1.3); Monocytes % 7.5 % (0.0-12.0); Platelet Count 429 K/mm3 (150-450); Red Blood Count 4.46 M/mm3 (4.1-5.4); Red Cell Distribution Width 14.9 % (11.5-14.0); White Blood Count 13.2 K/mm3 (4.0-10.5)
[2017-12-23 05:49] LABS: ALBUMIN 4.9 g/dL (3.5-5.0); ANION GAP 19.9 MEQ/L (5-15); BILIRUBIN,TOTAL 0.8 mg/dL (0.2-1.3); Calcium 10.1 mg/dL (8.4-10.2); Creatinine 1 1.27 mg/dL (0.52-1.04); Potassium 4.1 mmol/L (3.5-5.1); Total Protein 8.3 g/dL (6.3-8.2)
[2017-12-23] MEDS ORDERED: Sodium Chloride 0.9% 1000 ML 1,000 ML IV PRN (09:50)
--- NOTE | 2017-12-23 10:51 | PCM.HP ---
History of Present Illness - Chief Complaint Chief Complaint: intractable abdominal pain/meth intoxication History of Present Illness: is a 62 year old female.came to ER with abdominal pain - Review of Systems Constitutional: No Fever, No Chills Eyes: No Symptoms Ears, Nose, & Throat: No Symptoms Respiratory: No Cough, No Short Of Breath Cardiac: No Chest Pain, No Edema, No Syncope Abdominal/Gastrointestinal: No Abdominal Pain, No Nausea, No Vomiting, No Diarrhea Genitourinary Symptoms: No Dysuria Musculoskeletal: No Back Pain, No Neck Pain Skin: No Rash Neurological: No Dizziness, No Focal Weakness, No Sensory Changes Psychological: No Symptoms Endocrine: No Symptoms Hematologic/Lymphatic: No Symptoms Immunological/Allergic: No Symptoms Medications & Allergies Home Medications: Home Medication List Ondansetron [Zofran Odt] 4 mg PO TID #10 tab.rapdis 02/08/16 [Rx Confirmed 12/22] Albuterol Sulfate Mdi [Proair Hfa MDI] 1.25 mg NEB UD PRN 12/06/17 [ History Confirmed 12/22/17] Omeprazole 20 mg PO DAILY #14 capsule. 12/06/17 [Rx Confirmed 12/22/17] Acetaminophen/Diphenhydramine [Percogesic 325-12.5 mg Tablet] 1 each PO Q4H PRN PRN #15 tablet 12/13/17 [Rx Confirmed 12/22/17] Allergies/Adverse Reactions: Allergies Allergy/AdvReac Type Severity Reaction Status Date / Time No Known Drug Allergies Allergy Verified 12/22/17 18:05 - Past Medical History Past Medical History: Yes Neurological History: Stroke ENT History: Cataracts Cardiac History: Aneurysm Respiratory History: Emphysema, Pneumonia Endocrine Medical History: No Pertinent History Musculoskelatal History: No Pertinent History GI Medical History: Other History: No Pertinent History Pyscho-Social History: Anxiety, Depression Reproductive Disorders: No Pertinent History Comment: Chronic Abdominal pain; Hepatitis B - Female History Hx Last Menstrual Period: POST Are you now?: No - Past Surgical History Past Surgical History: Yes Neuro Surgical History: Neurological Surgery Cardiac History: No Pertinent History Respiratory Surgery: No Pertinent History GI Surgical History: Other Genitourinary Surgical Hx: No Pertinent History Musculskeletal Surgical Hx: No Pertinent History Female Surgical History: No Pertinent History Other Surgical History: Exploratory abdominal surgery - Social History Smoking Status: Current every day smoker How long have you smoked: 40 Exposure to second hand smoke: Yes Alcohol: None Drug Use: marijuana, methamphetamines - Physical Exam Vital Signs: Vital Signs - 24 hr Temp Pulse Resp BP Pulse Ox 12/23/17 07:10 98 F 92 H 22 188/86 97 12/23/17 04:15 98.4 F 115 H 20 167/97 97 12/23/17 01:59 176/80 12/23/17 00:59 98.6 F 100 H 22 226/103 96 12/23/17 00:00 96 12/22/17 21:20 178/116 12/22/17 20:30 225/110 12/22/17 19:40 122/101 12/22/17 18:49 78 16 168/112 98 12/22/17 17:55 97.0 F 100 H 22 210/145 99 General Appearance: no apparent distress, alert Neurologic Exam: alert, oriented x 3, cooperative, normal mood/affect, nml cerebellar function, nml station & gait, sensation nml, No motor deficits Eye Exam: PERRL/EOMI, eyes nml inspection Ears, Nose, Throat Exam: normal ENT inspection, TMs normal, pharynx normal, moist mucous membranes Neck Exam: normal inspection, non-tender, supple, full range of motion Respiratory Exam: normal breath sounds, lungs clear, No respiratory distress Cardiovascular Exam: regular rate/rhythm, normal heart sounds, normal peripheral pulses Gastrointestinal/Abdomen Exam: soft, normal bowel sounds, No tenderness, No mass Back Exam: normal inspection, normal range of motion, No CVA tenderness, No vertebral tenderness Extremity Exam: normal inspection, normal range of motion, pelvis stable Skin Exam: normal color, warm, dry, No rash Lymphatic Exam: No adenopathy Results - Labs Lab/Micro Results: Lab Results-Last 24 Hours 12/23/17 12/23/17 12/23/17 Range/Units 01:00 04:00 04:00 WBC 13.2 H (4.0-10.5) K/mm3 RBC 4.46 (4.1-5.4) M/mm3 Hgb 13.0 (12.0-16.0) gm/dl Hct 38.6 (35-47) % MCV 86.5 (78-100) fl MCH 29.1 (26-32) pg MCHC 33.7 (32-36) g/dl RDW 14.9 H (11.5-14.0) % Plt Count 429 (150-450) K/mm3 MPV 11.2 H (6-9.5) fl Gran % 83.1 H (36.0-66.0) % Eos # (Auto) 0.01 (0-0.5) Absolute Lymphs (auto) 1.20 (1.0-4.6) Absolute Monos (auto) 0.99 (0.0-1.3) Lymphocytes % 9.1 L (24.0-44.0) % Monocytes % 7.5 (0.0-12.0) % Eosinophils % 0.1 (0.00-5.0) % Basophils % 0.2 (0.0-0.4) % Absolute Granulocytes 10.94 H (1.4-6.9) Basophils # 0.03 (0-0.4) Sodium 133 L (137-145) mmol/L Potassium 4.1 (3.5-5.1) mmol/L Chloride 96 L (98-107) mmol/L Carbon Dioxide 21 L (22-30) mmol/L Anion Gap 19.9 H (5-15) MEQ/L BUN 31 H (7-17) mg/dL Creatinine 1.27 H (0.52-1.04) mg/dL Estimated GFR 45.6 ML/MIN Glucose 128 H (74-106) mg/dL Lactic Acid (0.4-2.0) Calcium 10.1 (8.4-10.2) mg/dL Total Bilirubin 0.80 (0.2-1.3) mg/dL AST 48 H (14-36) U/L ALT 25 (0-35) U/L Alkaline Phosphatase 112 (38-126) U/L Creatine Kinase (30-135) U/L Troponin I 0.014 (0.000-0.034) ng/mL Serum Total Protein 8.3 H (6.3-8.2) g/dL Albumin 4.9 (3.5-5.0) g/dL Prealbumin 35.00 (17.6-36.0) mg/dL 12/23/17 12/23/17 12/23/17 Range/Units 04:00 05:06 07:05 WBC (4.0-10.5) K/mm3 RBC (4.1-5.4) M/mm3 Hgb (12.0-16.0) gm/dl Hct (35-47) % MCV (78-100) fl MCH (26-32) pg MCHC (32-36) g/dl RDW (11.5-14.0) % Plt Count (150-450) K/mm3 MPV (6-9.5) fl Gran % (36.0-66.0) % Eos # (Auto) (0-0.5) Absolute Lymphs (auto) (1.0-4.6) Absolute Monos (auto) (0.0-1.3) Lymphocytes % (24.0-44.0) % Monocytes % (0.0-12.0) % Eosinophils % (0.00-5.0) % Basophils % (0.0-0.4) % Absolute Granulocytes (1.4-6.9) Basophils # (0-0.4) Sodium (137-145) mmol/L Potassium (3.5-5.1) mmol/L Chloride (98-107) mmol/L Carbon Dioxide (22-30) mmol/L Anion Gap (5-15) MEQ/L BUN (7-17) mg/dL Creatinine (0.52-1.04) mg/dL Estimated GFR ML/MIN Glucose (74-106) mg/dL Lactic Acid 1.3 (0.4-2.0) Calcium (8.4-10.2) mg/dL Total Bilirubin (0.2-1.3) mg/dL AST (14-36) U/L ALT (0-35) U/L Alkaline Phosphatase (38-126) U/L Creatine Kinase 578 H (30-135) U/L Troponin I 0.020 (0.000-0.034) ng/mL Serum Total Protein (6.3-8.2) g/dL Albumin (3.5-5.0) g/dL Prealbumin (17.6-36.0) mg/dL 12/23/17 Range/Units 07:05 WBC (4.0-10.5) K/mm3 RBC (4.1-5.4) M/mm3 Hgb (12.0-16.0) gm/dl Hct (35-47) % MCV (78-100) fl MCH (26-32) pg MCHC (32-36) g/dl RDW (11.5-14.0) % Plt Count (150-450) K/mm3 MPV (6-9.5) fl Gran % (36.0-66.0) % Eos # (Auto) (0-0.5) Absolute Lymphs (auto) (1.0-4.6) Absolute Monos (auto) (0.0-1.3) Lymphocytes % (24.0-44.0) % Monocytes % (0.0-12.0) % Eosinophils % (0.00-5.0) % Basophils % (0.0-0.4) % Absolute Granulocytes (1.4-6.9) Basophils # (0-0.4) Sodium (137-145) mmol/L Potassium (3.5-5.1) mmol/L Chloride (98-107) mmol/L Carbon Dioxide (22-30) mmol/L Anion Gap (5-15) MEQ/L BUN (7-17) mg/dL Creatinine (0.52-1.04) mg/dL Estimated GFR ML/MIN Glucose (74-106) mg/dL Lactic Acid (0.4-2.0) Calcium (8.4-10.2) mg/dL Total Bilirubin (0.2-1.3) mg/dL AST (14-36) U/L ALT (0-35) U/L Alkaline Phosphatase (38-126) U/L Creatine Kinase (30-135) U/L Troponin I 0.025 (0.000-0.034) ng/mL Serum Total Protein (6.3-8.2) g/dL Albumin (3.5-5.0) g/dL Prealbumin (17.6-36.0) mg/dL Assessment/Plan (1) Intractable abdominal pain Current Visit: Yes Status: Acute Onset Date: ~12/23/17 Code(s): R10.9 - UNSPECIFIED ABDOMINAL PAIN (2) Methamphetamine use Current Visit: Yes Status: Acute Onset Date: ~12/23/17 Code(s): F15.10 - OTHER STIMULANT ABUSE, UNCOMPLICATED (3) Tetrahydrocannabinol (THC) use disorder, moderate, dependence Current Visit: Yes Status: Acute Onset Date: ~12/23/17 Code(s): F12.20 - CANNABIS DEPENDENCE, UNCOMPLICATED (4) Chronic abdominal pain Current Visit: Yes Status: Chronic Onset Date: ~12/23/17 Code(s): R10.9 - UNSPECIFIED ABDOMINAL PAIN; G89.29 - OTHER CHRONIC PAIN
[2017-12-23 11:13] VITALS: BP 173/83; PULSE 93; O2SAT 95
[2017-12-23] MEDS ORDERED: DIPHENHYDRAMINE PO PRN (12:52)
[2017-12-23] MEDS ORDERED: [UNRECOGNIZED DRUG - OTHER] PO PRN (12:52)
[2017-12-23] MEDS ORDERED: ACETAMINOPHEN PO PRN (12:52)
[2017-12-23] MEDS ORDERED: ALBUTEROL SULFATE NEB PRN (12:52)
[2017-12-23] MEDS ORDERED: TYLENOL 325 MG PO PRN (12:54)
[2017-12-23] MEDS ORDERED: PROVENTIL 2.5 MG/3 ML NEB IH PRN (12:55)
[2017-12-23] MEDS ORDERED: Protonix 40MG Tablet PO SCH (13:00)
[2017-12-23] MEDS ORDERED: ZOFRAN ODT 4 MG PO SCH (15:00)
[2017-12-24] MEDS ORDERED: NON-FORMULARY ITEM (Omeprazole [Omeprazole] 20 MG) PO SCH (10:00)
== END 2017-12-23 14:05 | disposition home or self-care (01) ==
LOC: ED 17:49 → MED SURG 23:39
PROVIDERS: ADMIT General Practice; ATTEND General Practice
DX: R10.9 Unspecified abdominal pain (principal); F15.10 Other stimulant abuse, uncomplicated; F12.20 Cannabis dependence, uncomplicated; F41.8 Other specified anxiety disorders; B19.10 Unspecified viral hepatitis B without hepatic coma; Z72.0 Tobacco use
CPT/HCPCS: 36000; 36415; 80053; 80307; 81000; 82150; 82550; 83605; 83690; 83735; 84134; 84484; 85025; 93268; 96372; 99285; P9612; 99284; J0360; J1200; J2550; J3010; A9270-GY; G0378

== ENCOUNTER 2018-01-01 17:07 | Observation (INO) | payer BC ==
[2018-01-01] MEDS ORDERED: Sodium Chloride 0.9% 1000 ML 1,000 ML ONE (17:56)
[2018-01-01] MEDS ORDERED: Sodium Chloride 0.9% 1000 ML 1,000 ML IV STA (18:26)
[2018-01-01] MEDS ORDERED: SUBLIMAZE 100 MCG/2 ML IV ONE (18:26)
[2018-01-01] MEDS ORDERED: Pepcid 20 MG VIAL IV ONE ×2 (18:26→18:31)
[2018-01-01] MEDS ORDERED: Zofran 4 MG/2 ML VIAL IV ONE (18:26)
[2018-01-01] MEDS ORDERED: SUBLIMAZE 100 MCG/2 ML ONE (18:31)
[2018-01-01] MEDS ORDERED: Zofran 4 MG/2 ML VIAL ONE (18:31)
[2018-01-01 18:56] LABS: BASOPHIL % 0.9 % (0.0-0.4); Basophil (Absolute #) 0.07 (0-0.4); Eosinophil % 4.8 % (0.00-5.0); Eosinophil (Absolute #) 0.37 (0-0.5); Granulocyte Absolute (ANC) 5.73 (1.4-6.9); Granulocytes % 75.2 % (36.0-66.0); Hematocrit 36.2 % (35-47); Hemoglobin 11.9 gm/dl (12.0-16.0); Lymphocytes % 13.1 % (24.0-44.0); Mean Corpuscular Hemoglobin 29.6 pg (26-32); Mean Corpuscular Hgb Concent. 32.9 g/dl (32-36); Mean Platelet Volume 10.6 fl (6-9.5); Monocyte (Absolute #) 0.46 (0.0-1.3); Platelet Count 302 K/mm3 (150-450); Red Blood Count 4.02 M/mm3 (4.1-5.4); White Blood Count 7.6 K/mm3 (4.0-10.5)
[2018-01-01 18:57] LABS: Appearance CLEAR (CLEAR); Bilirubin NEGATIVE (NEGATIVE); Blood NEGATIVE Ery/ul (0-5); Glucose 100 mg/dL (NEGATIVE); Ketones NEGATIVE (NEGATIVE); Leukocyte Esterase NEGATIVE (NEGATIVE); Nitrite NEGATIVE (NEGATIVE); Protein,Urine Dip NEGATIVE (Negative); Specific Gravity 1.005 (1.005-1.025); Urobilinogen NORMAL mg/dL (0-1)
[2018-01-01 19:01] LABS: Amphetamine,Urine POSITIVE (NEGATIVE); Barbiturate,Urine NEGATIVE (NEGATIVE); Benzodiazepine,Urine NEGATIVE (NEGATIVE); Cocaine,Urine NEGATIVE (NEGATIVE); Methadone,Urine NEGATIVE (NEGATIVE); Opiate,Urine NEGATIVE (NEGATIVE); PCP,Urine NEGATIVE (NEGATIVE); THC,Urine POSITIVE (NEGATIVE)
[2018-01-01 19:12] LABS: ALBUMIN 4.3 g/dL (3.5-5.0); ALKALINE PHOSPHATASE 100 U/L (38-126); AMYLASE 381 U/L (30-110); BLOOD UREA NITROGEN 14 mg/dL (7-17); CHLORIDE 100 mmol/L (98-107); Calcium 9.1 mg/dL (8.4-10.2); Carbon Dioxide 30 mmol/L (22-30); Glucose 110 mg/dL (74-106); Potassium 3.7 mmol/L (3.5-5.1); SGOT/AST 21 U/L (14-36); SGPT/ALT 13 U/L (0-35); SODIUM 139 mmol/L (137-145); Total Protein 7.1 g/dL (6.3-8.2)
[2018-01-01 19:14] LABS: INR 0.95 (0.8-3.0)
[2018-01-01 19:22] LABS: LIPASE 2797 U/L (23-300)
--- NOTE | 2018-01-01 19:27 | ERPHSYRPT ---
<MALIKA PRAKASH - Last Filed: 01/01/18 21:42> - History of Present Illness Historian: family Exam Limitations: clinical condition Patient Subjective Stated Complaint: reports pain upon waking this morning. reports abd pain for 30 years with no definitive diagnosis, possible spasms in her rectum. reports upcoming appt with a specialist Triage Nursing Assessment: pt is aox3, pt appears anxious, pt is crying out during exam, pt is thrashing on the cot, pt is afebrile, pt radial pulses are strong and equal, abd is flat and tender with palp, bowel sounds present and normoactive x4. pt skin is pale warm dry. Timing/Duration: today Activities at Onset: none Quality: cramping Abdominal Pain Onset Location: generalized abdomen Severity of Pain-Max: severe Severity of Pain-Current: severe Modifying Factors: Improves With: nothing Associated Symptoms: denies symptoms Previous symptoms: same symptoms as today Hx Tetanus, Diphtheria Vaccination/Date Given: Yes Hx Influenza Vaccination/Date Given: No Hx Pneumococcal Vaccination/Date Given: No <BEL JULES - Last Filed: 01/02/18 07:39> - History of Present Illness Time Seen by Provider: 01/01/18 17:29 Physician History: Pt has been treated multiple times with chronic recurrent abdominal pain, according to her . She started c/o severe pain again this morning. denies vomiting, fever, diarrhea, apparently she had normal BM today and had a little soup. Patient has been crying, thrashing herself in pain, only moaning, not able to give any history. (BEL JULES) Allergies/Adverse Reactions: No Known Drug Allergies Allergy (Verified 01/01/18 22:42) Home Medications: Albuterol Sulfate Mdi [Proair Hfa MDI] 1.25 mg NEB UD PRN 12/06/17 [ History] - Review of Systems Constitutional: No Symptoms Abdominal/Gastrointestinal: Abdominal Pain All Other Systems: Unable due to condition <BEL JULES - Last Filed: 01/02/18 07:39> - Past Medical History Pertinent Past Medical History: Yes Neurological History: Stroke ENT History: Cataracts Cardiac History: Aneurysm Respiratory History: Emphysema, Pneumonia Endocrine Medical History: No Pertinent History Musculoskeletal History: No Pertinent History GI Medical History: Other History: No Pertinent History Psycho-Social History: Anxiety, Depression Female Reproductive Disorders: No Pertinent History Other Medical History: Chronic Abdominal pain; Hepatitis B - Past Surgical History Past Surgical History: Yes Neuro Surgical History: Neurological Surgery Cardiac: No Pertinent History Respiratory: No Pertinent History Gastrointestinal: Other Genitourinary: No Pertinent History Musculoskeletal: No Pertinent History Female Surgical History: No Pertinent History Other Surgical History: Exploratory abdominal surgery - Social History Smoking Status: Current every day smoker How long have you smoked: 40 Exposure to second hand smoke: Yes Drug Use: marijuana, methamphetamines Patient Lives Alone: No - Female History Hx Now: No <BEL JULES - Last Filed: 01/02/18 07:39> - Physical Exam General Appearance: moderate distress Eye Exam: eyes nml inspection Ears, Nose, Throat Exam: normal ENT inspection Neck Exam: normal inspection, non-tender, supple Respiratory Exam: normal breath sounds, lungs clear Cardiovascular Exam: regular rate/rhythm, normal heart sounds, normal peripheral pulses, No murmur Gastrointestinal/Abdomen Exam: soft, normal bowel sounds, tenderness (severe, diffuse), No distention, No mass, No guarding, No ecchymosis, No hernia Pelvic Exam: not done Back Exam: normal inspection Extremity Exam: normal inspection Neurologic Exam: alert, agitation, uncooperative Skin Exam: normal color, warm, dry, No rash SpO2 Interpretation: normal SpO2: 97 Oxygen Delivery: Room Air <BEL JULES - Last Filed: 01/02/18 07:39> - Nursing Vital Signs Nursing Vital Signs: Initial Vital Signs Temperature 98.0 F 01/01/18 17:12 Pulse Rate 89 01/01/18 17:12 Respiratory Rate 22 01/01/18 17:12 O2 Sat by Pulse Oximetry 99 01/01/18 17:12 Pain Scale Pain Intensity 0 - Course EKG Interpreted by Me: RATE (84), Sinus Rhythm, NORMAL AXIS, NORMAL INTERVALS, NORMAL QRS - CT Exams Abdomen CT Interpretation: Tele-radiologist Report (moderately distended fluid-filled stomach with descending duodenum wall thickening suggestions of gastroduodenitis. Rest of exam is unchanged/unremarkable) <MALIKA PRAKASH - Last Filed: 01/01/18 21:42> - Course Nursing assessment & vital signs reviewed: Yes <BEL JULES - Last Filed: 01/02/18 07:39> Ordered Tests: Active Orders 24 hr Category Date Time Status EKG-ER Only STAT Care 01/01/18 18:26 Completed IV Insertion STAT Care 01/01/18 18:26 Completed NPO (ED) STAT Care 01/01/18 18:26 Completed NPO Diet 01/03/18 12:00 Active ABDOMEN AND PELVIS W/0 CONTRAS [CT] Stat Exams 01/01/18 18:27 Taken CHEST 1 VIEW (PORTABLE) Stat Exams 01/01/18 18:27 Taken AMYLASE Stat Lab 01/01/18 18:53 Completed CBC W DIFF AM.LAB Lab 01/02/18 05:48 Completed CBC W DIFF Stat Lab 01/01/18 18:53 Completed CMP AM.LAB Lab 01/02/18 05:48 Completed CMP Stat Lab 01/01/18 18:53 Completed LIPASE Stat Lab 01/01/18 18:53 Completed Lactic Acid Stat Lab 01/01/18 18:45 Completed PROTIME WITH INR Stat Lab 01/01/18 18:37 Completed TROPONIN Q3H Lab 01/01/18 18:53 Completed UA W/RFX UR CULTURE Stat Lab 01/01/18 18:34 Completed Urine Triage Profile Stat Lab 01/01/18 18:34 Completed Medication Summary Generic Name Dose Route Start Last Admin Trade Name Freq PRN Reason Stop Dose Admin Hydromorphone HCl 1 mg 01/01/18 21:45 01/02/18 05:44 Dilaudid 2 Mg Injection IV 01/06/18 21:44 1 mg Q4H PRN PRN Administration PAIN Dextrose/Sodium Chloride 1,000 mls @ 100 mls/hr 01/01/18 21:45 01/01/18 23:15 Dextrose 5% -0.45 Nacl 1000 Ml IV 01/31/18 21:44 100 mls/hr .Q10H YOBANY Administration Ondansetron HCl 4 mg 01/01/18 21:45 Zofran 4 Mg/2 Ml Vial IV 01/31/18 21:44 Q6H PRN PRN NAUSEA/VOMITING Discontinued Medications Generic Name Dose Route Start Last Admin Trade Name Freq PRN Reason Stop Dose Admin Famotidine 20 mg 01/01/18 18:26 01/01/18 18:32 Pepcid 20 Mg Vial IV 01/01/18 18:27 20 mg STAT ONE Administration Famotidine Confirm 01/01/18 18:31 Pepcid 20 Mg Vial Administered 01/01/18 18:32 Dose 20 mg IV .STK-MED ONE Fentanyl Citrate 50 mcg 01/01/18 18:26 01/01/18 18:33 Sublimaze 100 Mcg/2 Ml IV 01/01/18 18:27 50 mcg STAT ONE Administration Fentanyl Citrate Confirm 01/01/18 18:31 Sublimaze 100 Mcg/2 Ml Administered 01/01/18 18:32 Dose 100 mcg .ROUTE .STK-MED ONE Hydromorphone HCl Confirm 01/01/18 20:34 Dilaudid 2 Mg Injection Administered 01/01/18 20:35 Dose 2 mg .ROUTE .STK-MED ONE Hydromorphone HCl 1 mg 01/01/18 20:34 01/01/18 20:37 Hydromorphone 1 Mg/Ml Ampule IV 01/01/18 20:35 1 mg STAT ONE Administration Sodium Chloride Confirm 01/01/18 17:56 Sodium Chloride 0.9% 1000 Ml Administered 01/01/18 17:57 Dose 1,000 mls @ ud .ROUTE .STK-MED ONE Sodium Chloride 1,000 mls @ 999 mls/hr 01/01/18 18:26 01/01/18 18:38 Sodium Chloride 0.9% 1000 Ml IV 01/01/18 19:26 999 mls/hr .Q1H1M STA Administration Lorazepam Confirm 01/01/18 20:33 Ativan 2 Mg/1 Ml Vial Administered 01/01/18 20:34 Dose 2 mg .ROUTE .STK-MED ONE Lorazepam 1 mg 01/01/18 20:35 01/01/18 20:36 Ativan 2 Mg/1 Ml Vial IV 01/01/18 20:36 1 mg STAT ONE Administration Ondansetron HCl 4 mg 01/01/18 18:26 01/01/18 18:32 Zofran 4 Mg/2 Ml Vial IV 01/01/18 18:27 4 mg STAT ONE Administration Ondansetron HCl Confirm 01/01/18 18:31 Zofran 4 Mg/2 Ml Vial Administered 01/01/18 18:32 Dose 4 mg .ROUTE .STK-MED ONE Lab/Rad Data: Laboratory Result Diagrams 01/01/18 18:53 01/01/18 18:53 Laboratory Results 01/01/18 01/01/18 01/01/18 Range/Units 18:53 18:53 18:53 WBC 7.6 (4.0-10.5) K/mm3 RBC 4.02 L (4.1-5.4) M/mm3 Hgb 11.9 L (12.0-16.0) gm/dl Hct 36.2 (35-47) % MCV 90.0 (78-100) fl MCH 29.6 (26-32) pg MCHC 32.9 (32-36) g/dl RDW 15.0 H (11.5-14.0) % Plt Count 302 (150-450) K/mm3 MPV 10.6 H (6-9.5) fl Gran % 75.2 H (36.0-66.0) % Eos # (Auto) 0.37 (0-0.5) Absolute Lymphs (auto) 1.00 (1.0-4.6) Absolute Monos (auto) 0.46 (0.0-1.3) Lymphocytes % 13.1 L (24.0-44.0) % Monocytes % 6.0 (0.0-12.0) % Eosinophils % 4.8 (0.00-5.0) % Basophils % 0.9 (0.0-0.4) % Absolute Granulocytes 5.73 (1.4-6.9) Basophils # 0.07 (0-0.4) PT (9.95-12.35) SECONDS INR (0.8-3.0) Sodium 139 (137-145) mmol/L Potassium 3.7 (3.5-5.1) mmol/L Chloride 100 (98-107) mmol/L Carbon Dioxide 30 (22-30) mmol/L Anion Gap 12.0 (5-15) MEQ/L BUN 14 (7-17) mg/dL Creatinine 1.00 (0.52-1.04) mg/dL Estimated GFR > 60.0 ML/MIN Glucose 110 H (74-106) mg/dL Lactic Acid (0.4-2.0) Calcium 9.1 (8.4-10.2) mg/dL Total Bilirubin 0.40 (0.2-1.3) mg/dL AST 21 (14-36) U/L ALT 13 (0-35) U/L Alkaline Phosphatase 100 (38-126) U/L Troponin I < 0.012 (0.000-0.034) ng/mL Serum Total Protein 7.1 (6.3-8.2) g/dL Albumin 4.3 (3.5-5.0) g/dL Amylase 381 H (30-110) U/L Lipase 2797 H (23-300) U/L Ur Collection Type Urine Color (YELLOW) Urine Appearance (CLEAR) Urine pH (5-6) Ur Specific [place] (1.005-1.025) Urine Protein (Negative) Urine Ketones (NEGATIVE) Urine Blood (0-5) Joel/ul Urine Nitrite (NEGATIVE) Urine Bilirubin (NEGATIVE) Urine Urobilinogen (0-1) mg/dL Ur Leukocyte Esterase (NEGATIVE) Urine Culture Reflexed (NO) Urine Glucose (NEGATIVE) mg/dL Urine Opiates Level (NEGATIVE) Ur Methadone (NEGATIVE) Urine Barbiturates (NEGATIVE) Ur Phencyclidine (PCP) (NEGATIVE) Urine Amphetamine (NEGATIVE) U Benzodiazepine Level (NEGATIVE) Urine Cocaine (NEGATIVE) Urine Marijuana (THC) (NEGATIVE) Specimen Received 01/01/18 01/01/18 01/01/18 Range/Units 18:45 18:37 18:34 WBC (4.0-10.5) K/mm3 RBC (4.1-5.4) M/mm3 Hgb (12.0-16.0) gm/dl Hct (35-47) % MCV (78-100) fl MCH (26-32) pg MCHC (32-36) g/dl RDW (11.5-14.0) % Plt Count (150-450) K/mm3 MPV (6-9.5) fl Gran % (36.0-66.0) % Eos # (Auto) (0-0.5) Absolute Lymphs (auto) (1.0-4.6) Absolute Monos (auto) (0.0-1.3) Lymphocytes % (24.0-44.0) % Monocytes % (0.0-12.0) % Eosinophils % (0.00-5.0) % Basophils % (0.0-0.4) % Absolute Granulocytes (1.4-6.9) Basophils # (0-0.4) PT 10.6 (9.95-12.35) SECONDS INR 0.95 (0.8-3.0) Sodium (137-145) mmol/L Potassium (3.5-5.1) mmol/L Chloride (98-107) mmol/L Carbon Dioxide (22-30) mmol/L Anion Gap (5-15) MEQ/L BUN (7-17) mg/dL Creatinine (0.52-1.04) mg/dL Estimated GFR ML/MIN Glucose (74-106) mg/dL Lactic Acid 0.7 (0.4-2.0) Calcium (8.4-10.2) mg/dL Total Bilirubin (0.2-1.3) mg/dL AST (14-36) U/L ALT (0-35) U/L Alkaline Phosphatase (38-126) U/L Troponin I (0.000-0.034) ng/mL Serum Total Protein (6.3-8.2) g/dL Albumin (3.5-5.0) g/dL Amylase (30-110) U/L Lipase (23-300) U/L Ur Collection Type Urine Color (YELLOW) Urine Appearance (CLEAR) Urine pH (5-6) Ur Specific [place] (1.005-1.025) Urine Protein (Negative) Urine Ketones (NEGATIVE) Urine Blood (0-5) Joel/ul Urine Nitrite (NEGATIVE) Urine Bilirubin (NEGATIVE) Urine Urobilinogen (0-1) mg/dL Ur Leukocyte Esterase (NEGATIVE) Urine Culture Reflexed (NO) Urine Glucose (NEGATIVE) mg/dL Urine Opiates Level NEGATIVE (NEGATIVE) Ur Methadone NEGATIVE (NEGATIVE) Urine Barbiturates NEGATIVE (NEGATIVE) Ur Phencyclidine (PCP) NEGATIVE (NEGATIVE) Urine Amphetamine POSITIVE (NEGATIVE) U Benzodiazepine Level NEGATIVE (NEGATIVE) Urine Cocaine NEGATIVE (NEGATIVE) Urine Marijuana (THC) POSITIVE (NEGATIVE) Specimen Received 01/01/18 Range/Units 18:34 WBC (4.0-10.5) K/mm3 RBC (4.1-5.4) M/mm3 Hgb (12.0-16.0) gm/dl Hct (35-47) % MCV (78-100) fl MCH (26-32) pg MCHC (32-36) g/dl RDW (11.5-14.0) % Plt Count (150-450) K/mm3 MPV (6-9.5) fl Gran % (36.0-66.0) % Eos # (Auto) (0-0.5) Absolute Lymphs (auto) (1.0-4.6) Absolute Monos (auto) (0.0-1.3) Lymphocytes % (24.0-44.0) % Monocytes % (0.0-12.0) % Eosinophils % (0.00-5.0) % Basophils % (0.0-0.4) % Absolute Granulocytes (1.4-6.9) Basophils # (0-0.4) PT (9.95-12.35) SECONDS INR (0.8-3.0) Sodium (137-145) mmol/L Potassium (3.5-5.1) mmol/L Chloride (98-107) mmol/L Carbon Dioxide (22-30) mmol/L Anion Gap (5-15) MEQ/L BUN (7-17) mg/dL Creatinine (0.52-1.04) mg/dL Estimated GFR ML/MIN Glucose (74-106) mg/dL Lactic Acid (0.4-2.0) Calcium (8.4-10.2) mg/dL Total Bilirubin (0.2-1.3) mg/dL AST (14-36) U/L ALT (0-35) U/L Alkaline Phosphatase (38-126) U/L Troponin I (0.000-0.034) ng/mL Serum Total Protein (6.3-8.2) g/dL Albumin (3.5-5.0) g/dL Amylase (30-110) U/L Lipase (23-300) U/L Ur Collection Type VOID Urine Color LT.YELLOW (YELLOW) Urine Appearance CLEAR (CLEAR) Urine pH 8.0 (5-6) Ur Specific [place] 1.005 (1.005-1.025) Urine Protein NEGATIVE (Negative) Urine Ketones NEGATIVE (NEGATIVE) Urine Blood NEGATIVE (0-5) Joel/ul Urine Nitrite NEGATIVE (NEGATIVE) Urine Bilirubin NEGATIVE (NEGATIVE) Urine Urobilinogen NORMAL (0-1) mg/dL Ur Leukocyte Esterase NEGATIVE (NEGATIVE) Urine Culture Reflexed NO (NO) Urine Glucose 100 (NEGATIVE) mg/dL Urine Opiates Level (NEGATIVE) Ur Methadone (NEGATIVE) Urine Barbiturates (NEGATIVE) Ur Phencyclidine (PCP) (NEGATIVE) Urine Amphetamine (NEGATIVE) U Benzodiazepine Level (NEGATIVE) Urine Cocaine (NEGATIVE) Urine Marijuana (THC) (NEGATIVE) Specimen Received 01/01/18 2805 - Progress Discussed with Dr.: [place] ([facility] Will see patient in: hospital (observation) Counseled pt/family regarding: lab results, diagnosis, rad results <MALIKA PRAKASH - Last Filed: 01/01/18 21:42> - Progress Progress: improved <BEL JULES - Last Filed: 01/02/18 07:39> - Progress Progress Note: 01/01/18 19:26 Pt's condition and history discussed in details with Dr Prakash, he will follow up on her results. (BEL JULES) - Departure Time of Disposition: 21:15 Departure Disposition: Observation Critical Care Time: No <MALIKA PRAKASH - Last Filed: 01/01/18 21:42> <BEL JULES - Last Filed: 01/02/18 07:39> - Departure Clinical Impression: Methamphetamine abuse Pancreatitis Qualifiers: Chronicity: acute Pancreatitis type: unspecified pancreatitis type Acute pancreatitis complication: unspecified Qualified Code(s): K85.90 - Acute pancreatitis without necrosis or infection, unspecified Condition: Fair
[2018-01-01] MEDS ORDERED: Ativan 2 MG/1 ML VIAL ONE (20:33)
[2018-01-01] MEDS ORDERED: DILAUDID 2 MG INJECTION ONE (20:34)
[2018-01-01] MEDS ORDERED: Hydromorphone 1 mg/ml Ampule IV ONE (20:34)
[2018-01-01] MEDS ORDERED: Ativan 2 MG/1 ML VIAL IV ONE (20:35)
[2018-01-01] MEDS ORDERED: Zofran 4 MG/2 ML VIAL IV PRN (21:45)
[2018-01-01] MEDS: Dextrose 5% -0.45 NaCl 1000 ML 1,000 ML IV SCH (23:15)
[2018-01-02] MEDS: DILAUDID 2 MG INJECTION IV PRN ×2 (05:44→11:14)
[2018-01-02 05:56] LABS: BASOPHIL % 0.4 % (0.0-0.4); Basophil (Absolute #) 0.03 (0-0.4); Eosinophil % 5.5 % (0.00-5.0); Eosinophil (Absolute #) 0.39 (0-0.5); Granulocyte Absolute (ANC) 4.22 (1.4-6.9); Granulocytes % 59.8 % (36.0-66.0); Hematocrit 32.8 % (35-47); Hemoglobin 10.7 gm/dl (12.0-16.0); Lymphocyte (Absolute #) 1.77 (1.0-4.6); Lymphocytes % 25.1 % (24.0-44.0); Mean Cell Volume 90.1 fl (78-100); Mean Corpuscular Hgb Concent. 32.6 g/dl (32-36); Mean Platelet Volume 11.1 fl (6-9.5); Monocyte (Absolute #) 0.65 (0.0-1.3); Monocytes % 9.2 % (0.0-12.0); Platelet Count 276 K/mm3 (150-450); Red Blood Count 3.64 M/mm3 (4.1-5.4); White Blood Count 7.1 K/mm3 (4.0-10.5)
[2018-01-02 06:00] LABS: Mean Corpuscular Hemoglobin 29.3 pg (26-32)
[2018-01-02 06:17] LABS: ALBUMIN 3.5 g/dL (3.5-5.0); ALKALINE PHOSPHATASE 77 U/L (38-126); ANION GAP 10.3 MEQ/L (5-15); BLOOD UREA NITROGEN 11 mg/dL (7-17); CHLORIDE 103 mmol/L (98-107); Calcium 8.7 mg/dL (8.4-10.2); Carbon Dioxide 25 mmol/L (22-30); Creatinine 1 0.96 mg/dL (0.52-1.04); Glucose 99 mg/dL (74-106); Potassium 3.8 mmol/L (3.5-5.1); SGOT/AST 17 U/L (14-36); SGPT/ALT 11 U/L (0-35); SODIUM 134 mmol/L (137-145); Total Protein 5.9 g/dL (6.3-8.2)
--- NOTE | 2018-01-02 08:32 | XRAY ---
Indication: Abdominal pain, nausea, vomiting, and constipation. Multiple contiguous axial images obtained through the abdomen and pelvis without contrast as ordered. Comparison: December 13, 2017. Lung bases again demonstrates pulmonary emphysema and fibrosis/scarring. No infiltrate or effusion. Heart is not enlarged with stable small pericardial effusion. Stable distal esophageal wall thickening possibly esophagitis. Stomach and descending duodenum are moderately fluid distended with wall thickening concerning for gastroduodenitis. No free fluid/air. Normal appendix. Mild fecal debris in the ascending and transverse colon. Remaining liver, gallbladder, pancreas, spleen, adrenal glands, kidneys, ureters, bladder, and uterus appear unremarkable for noncontrast exam. Stable moderate aortoiliac calcifications without AAA. Osseous structures intact again with mild degenerative changes. Impression: 1. Fluid distended stomach and descending duodenum with wall thickening. Rule out gastroduodenitis. 2. Stable distal esophageal wall thickening concerning for esophagitis. 3. Stable pulmonary emphysema and small pericardial effusion. CT DI 8.27
--- NOTE | 2018-01-02 08:39 | XRAY ---
Indication: Abdomen pain. Comparison: May 05, 2015. Portable chest remains hyperinflated and clear. Heart is not enlarged. No new/acute findings.
[2018-01-02 09:11] LABS: AMYLASE 157 U/L (30-110); LIPASE 236 U/L (23-300)
[2018-01-02] MEDS: Dextrose 5% -0.45 NaCl 1000 ML 1,000 ML IV SCH (10:45)
--- NOTE | 2018-01-02 11:44 | PCM.HP ---
History of Present Illness - Chief Complaint Chief Complaint: c/o pain in abdomen for months History of Present Illness: is a 62 year old female.Pt has been treated multiple times with chronic recurrent abdominal pain, according to her . She started c/o severe pain again this morning. denies vomiting, fever, diarrhea, apparently she had normal BM today and had a little soup. Patient has been crying, thrashing herself in pain, only moaning, not able to give any history. - Review of Systems Constitutional: No Fever, No Chills Eyes: No Symptoms Ears, Nose, & Throat: No Symptoms Respiratory: No Cough, No Short Of Breath Cardiac: No Chest Pain, No Edema, No Syncope Abdominal/Gastrointestinal: Abdominal Pain, No Nausea, No Vomiting, No Diarrhea Genitourinary Symptoms: No Dysuria Musculoskeletal: No Back Pain, No Neck Pain Skin: No Rash Neurological: No Dizziness, No Focal Weakness, No Sensory Changes Psychological: No Symptoms Endocrine: No Symptoms Hematologic/Lymphatic: No Symptoms Immunological/Allergic: No Symptoms Medications & Allergies Home Medications: Home Medication List Ondansetron [Zofran Odt] 4 mg PO TID #10 tab.rapdis 02/08/16 [Rx Confirmed 01/02] Albuterol Sulfate Mdi [Proair Hfa MDI] 1.25 mg NEB UD PRN 12/06/17 [ History Confirmed 01/02/18] Omeprazole 20 mg PO DAILY #14 capsule. 12/06/17 [Rx Confirmed 01/02/18] Nicotine 21 mg [Nicoderm CQ 21 MG] 21 mg TOP DAILY 01/02/18 [History Confirmed 01/02/18] PANTOPRAZOLE 40 mg Tablet [Protonix 40MG Tablet] 40 mg PO DAILY 01/02/18 [ History Confirmed 01/02/18] Allergies/Adverse Reactions: Allergies Allergy/AdvReac Type Severity Reaction Status Date / Time No Known Drug Allergies Allergy Verified 01/01/18 22:42 - Past Medical History Past Medical History: Yes Neurological History: Stroke ENT History: Cataracts Cardiac History: Aneurysm Respiratory History: Emphysema, Pneumonia Endocrine Medical History: No Pertinent History Musculoskelatal History: No Pertinent History GI Medical History: Other History: No Pertinent History Pyscho-Social History: Anxiety, Depression Reproductive Disorders: No Pertinent History Comment: Chronic Abdominal pain; Hepatitis B - Female History Are you now?: No - Past Surgical History Past Surgical History: Yes Neuro Surgical History: Neurological Surgery Cardiac History: No Pertinent History Respiratory Surgery: No Pertinent History GI Surgical History: Other Genitourinary Surgical Hx: No Pertinent History Musculskeletal Surgical Hx: No Pertinent History Female Surgical History: No Pertinent History Other Surgical History: Exploratory abdominal surgery - Social History Smoking Status: Current every day smoker How long have you smoked: 40 Exposure to second hand smoke: Yes Alcohol: None Drug Use: marijuana, methamphetamines - Physical Exam Vital Signs: Vital Signs - 24 hr Temp Pulse Resp BP Pulse Ox 01/02/18 07:39 97 01/02/18 07:36 98.4 F 60 16 154/74 94 L 01/02/18 04:00 98.2 F 70 18 169/89 98 01/01/18 23:55 98.1 F 66 18 176/87 98 01/01/18 22:47 98.1 F 66 18 176/87 98 01/01/18 20:55 70 16 153/86 99 01/01/18 19:40 94 H 16 100 01/01/18 18:38 97.7 F 62 18 186/82 97 01/01/18 17:12 98.0 F 89 22 99 General Appearance: no apparent distress, alert Neurologic Exam: alert, oriented x 3, cooperative, normal mood/affect, nml cerebellar function, nml station & gait, sensation nml, No motor deficits Eye Exam: PERRL/EOMI, eyes nml inspection Ears, Nose, Throat Exam: normal ENT inspection, TMs normal, pharynx normal, moist mucous membranes Neck Exam: normal inspection, non-tender, supple, full range of motion Respiratory Exam: normal breath sounds, lungs clear, No respiratory distress Cardiovascular Exam: regular rate/rhythm, normal heart sounds, normal peripheral pulses Gastrointestinal/Abdomen Exam: soft, normal bowel sounds, No tenderness, No mass Back Exam: normal inspection, normal range of motion, No CVA tenderness, No vertebral tenderness Extremity Exam: normal inspection, normal range of motion, pelvis stable Skin Exam: normal color, warm, dry, No rash Lymphatic Exam: No adenopathy Results - Labs Lab/Micro Results: Lab Results-Last 24 Hours 01/02/18 01/02/18 01/02/18 Range/Units 05:15 05:48 05:48 WBC 7.1 (4.0-10.5) K/mm3 RBC 3.64 L (4.1-5.4) M/mm3 Hgb 10.7 L (12.0-16.0) gm/dl Hct 32.8 L (35-47) % MCV 90.1 (78-100) fl MCH 29.3 (26-32) pg MCHC 32.6 (32-36) g/dl RDW 15.0 H (11.5-14.0) % Plt Count 276 (150-450) K/mm3 MPV 11.1 H (6-9.5) fl Gran % 59.8 (36.0-66.0) % Eos # (Auto) 0.39 (0-0.5) Absolute Lymphs (auto) 1.77 (1.0-4.6) Absolute Monos (auto) 0.65 (0.0-1.3) Lymphocytes % 25.1 (24.0-44.0) % Monocytes % 9.2 (0.0-12.0) % Eosinophils % 5.5 H (0.00-5.0) % Basophils % 0.4 (0.0-0.4) % Absolute Granulocytes 4.22 (1.4-6.9) Basophils # 0.03 (0-0.4) Sodium 134 L (137-145) mmol/L Potassium 3.8 (3.5-5.1) mmol/L Chloride 103 (98-107) mmol/L Carbon Dioxide 25 (22-30) mmol/L Anion Gap 10.3 (5-15) MEQ/L BUN 11 (7-17) mg/dL Creatinine 0.96 (0.52-1.04) mg/dL Estimated GFR > 60.0 ML/MIN Glucose 99 (74-106) mg/dL Calcium 8.7 (8.4-10.2) mg/dL Total Bilirubin 0.30 (0.2-1.3) mg/dL AST 17 (14-36) U/L ALT 11 (0-35) U/L Alkaline Phosphatase 77 (38-126) U/L Serum Total Protein 5.9 L (6.3-8.2) g/dL Albumin 3.5 (3.5-5.0) g/dL Amylase 157 H (30-110) U/L Lipase 236 (23-300) U/L - Radiology Impressions Radiology Exams & Impressions: Radiology Procedures Category Date Time Status GALLBLADDER [US] Urgent Exams 01/02/18 Ordered Assessment/Plan (1) Methamphetamine use Current Visit: Yes Status: Acute Onset Date: ~01/02/18 Code(s): F15.10 - OTHER STIMULANT ABUSE, UNCOMPLICATED (2) Pancreatitis Current Visit: Yes Status: Acute Onset Date: ~01/02/18 Qualifiers: Chronicity: acute Pancreatitis type: unspecified pancreatitis type Acute pancreatitis complication: unspecified Qualified Code(s): K85.90 - Acute pancreatitis without necrosis or infection, unspecified Code(s): K85.90 - ACUTE PANCREATITIS WITHOUT NECROSIS OR INFECTION, UNSP (3) Intractable abdominal pain Current Visit: No Status: Acute Onset Date: ~12/23/17 Code(s): R10.9 - UNSPECIFIED ABDOMINAL PAIN (4) Chronic abdominal pain Current Visit: No Status: Chronic Onset Date: ~12/23/17 Code(s): R10.9 - UNSPECIFIED ABDOMINAL PAIN; G89.29 - OTHER CHRONIC PAIN
[2018-01-02 12:10] VITALS: BP 148/72; PULSE 62; O2SAT 94
[2018-01-02] MEDS ORDERED: ALBUTEROL SULFATE NEB PRN (12:24)
[2018-01-02] MEDS ORDERED: PROVENTIL 2.5 MG/3 ML NEB IH PRN (12:26)
--- NOTE | 2018-01-02 12:31 | XRAY ---
Indication: Abdomen pain. Pancreatitis. Hepatitis B. Two-dimensional gallbladder sonogram was performed. Comparison: October 10, 2011. Gallbladder normally distended again without gallstones, wall thickening, or pericholecystic fluid. Common bile duct measures 4.3 mm. No intrahepatic biliary distention. Visualized portions of the liver homogeneous in echogenicity. No ascites. Pancreas sonographically unremarkable. Right kidney measures 9.0 x 3.7 x 4.1 cm and appears sonographically normal. Actuarial Analyst notes a 2.3 x 1.1 x 1.4 cm hyperechogenicity adjacent to the main portal vein. No corresponding abnormality on recent CT exams. Impression: 1. Hyperechogenicity adjacent to the main portal vein as detailed but no corresponding CT abnormality. I doubt the finding is real and pathologic. It may just represent focal mesenteric fat given its echogenicity. 2. Remaining gallbladder sonogram is negative.
[2018-01-02] MEDS ORDERED: Protonix 40MG Tablet PO SCH (13:00)
[2018-01-02] MEDS ORDERED: ZOFRAN ODT 4 MG PO SCH (15:00)
[2018-01-03] MEDS ORDERED: NON-FORMULARY ITEM (Omeprazole [Omeprazole] 20 MG) PO SCH (10:00)
== END 2018-01-02 15:00 | disposition home or self-care (01) ==
LOC: ED 17:07 → MED SURG 22:26
PROVIDERS: ADMIT General Practice; ATTEND General Practice
DX: F15.10 Other stimulant abuse, uncomplicated (principal); K85.90 Acute pancreatitis without necrosis or infection, unspecified; R10.9 Unspecified abdominal pain; Z86.73 Personal history of transient ischemic attack (TIA), and cerebral infarction without residual deficits; F41.8 Other specified anxiety disorders
CPT/HCPCS: 36000; 36415; 71045; 74176; 76705; 80053; 80307; 81002; 82150; 83605; 83690; 84484; 85025; 85610; 93005; 96360; 96374; 96375; 99285; G0378; J1170; J2060; J2405; J3010; A9270-GY

== ENCOUNTER 2018-01-09 10:50 | Observation (INO) | payer BC ==
[2018-01-09] MEDS ORDERED: Phenergan 25 MG INJ IV ONE (11:12)
[2018-01-09] MEDS ORDERED: Hydromorphone 1 mg/ml Ampule IV ONE (11:12)
[2018-01-09] MEDS ORDERED: BENADRYL 50 MG/ML IV ONE (11:12)
[2018-01-09] MEDS ORDERED: Sodium Chloride 0.9% 1000 ML 1,000 ML IV STA (11:12)
[2018-01-09] MEDS ORDERED: Hydromorphone 1 mg/ml Ampule ONE (11:17)
[2018-01-09] MEDS ORDERED: Phenergan 25 MG INJ ONE (11:17)
[2018-01-09] MEDS ORDERED: BENADRYL 50 MG/ML ONE (11:17)
[2018-01-09] MEDS ORDERED: Sodium Chloride 0.9% 1000 ML 1,000 ML ONE (11:18)
[2018-01-09 11:52] LABS: Appearance CLEAR (CLEAR); Bilirubin NEGATIVE (NEGATIVE); Glucose 50 mg/dL (NEGATIVE); Ketones NEGATIVE (NEGATIVE); Leukocyte Esterase NEGATIVE (NEGATIVE); Nitrite NEGATIVE (NEGATIVE); Protein,Urine Dip TRACE (Negative); Specific Gravity 1.015 (1.005-1.025); Urobilinogen NORMAL mg/dL (0-1)
[2018-01-09 11:58] LABS: Bacteria FEW /HPF (NEGATIVE); Epithelial Cells MODERATE /HPF (FEW); WBC 0-2 /HPF (0-5)
[2018-01-09 12:06] LABS: BASOPHIL % 0.4 % (0.0-0.4); Basophil (Absolute #) 0.03 (0-0.4); Eosinophil % 2.8 % (0.00-5.0); Eosinophil (Absolute #) 0.21 (0-0.5); Granulocyte Absolute (ANC) 5.93 (1.4-6.9); Granulocytes % 79.7 % (36.0-66.0); Hematocrit 37.6 % (35-47); Hemoglobin 12.3 gm/dl (12.0-16.0); Lymphocyte (Absolute #) 0.92 (1.0-4.6); Lymphocytes % 12.3 % (24.0-44.0); Mean Cell Volume 89.3 fl (78-100); Mean Corpuscular Hemoglobin 29.2 pg (26-32); Mean Corpuscular Hgb Concent. 32.7 g/dl (32-36); Mean Platelet Volume 10.9 fl (6-9.5); Monocyte (Absolute #) 0.36 (0.0-1.3); Monocytes % 4.8 % (0.0-12.0); Platelet Count 292 K/mm3 (150-450); Red Blood Count 4.21 M/mm3 (4.1-5.4); Red Cell Distribution Width 14.8 % (11.5-14.0); White Blood Count 7.5 K/mm3 (4.0-10.5)
[2018-01-09 12:09] LABS: ALBUMIN 4.5 g/dL (3.5-5.0); BILIRUBIN,TOTAL 0.5 mg/dL (0.2-1.3); Calcium 9.5 mg/dL (8.4-10.2); Creatinine 1 1.05 mg/dL (0.52-1.04); Potassium 4.3 mmol/L (3.5-5.1); Total Protein 7.5 g/dL (6.3-8.2)
[2018-01-09 12:15] LABS: Barbiturate,Urine NEGATIVE (NEGATIVE); Benzodiazepine,Urine NEGATIVE (NEGATIVE); Cocaine,Urine NEGATIVE (NEGATIVE); Methadone,Urine NEGATIVE (NEGATIVE); Opiate,Urine NEGATIVE (NEGATIVE); PCP,Urine NEGATIVE (NEGATIVE); THC,Urine POSITIVE (NEGATIVE)
--- NOTE | 2018-01-09 12:49 | ERPHSYRPT ---
- History of Present Illness Time Seen by Provider: 01/09/18 11:10 Historian: patient Exam Limitations: clinical condition Patient Subjective Stated Complaint: Abdominal Pain since yesterday, hx of complaint. Triage Nursing Assessment: Pt presents to the ED with complaints of abdominal pain, onset yesterday. Pt states hx of complaint x3 months. Pt states she is supposed to see specialist for complaint. Pt screaming on arrival to ED, does not speak to staff due to screaming. Spouse at bedside to provide pt history. Physician History: PATIENT WITH A HISTORY OF CHRONIC PANCREATITIS, INTRACTABLE ABDOMINAL PAIN, HAS HAD MULTIPLE EMERGENCY ROOM VISITS LAST MONTH FOR ABDOMINAL PAIN. COMPLAINS OF INCREASING PAIN DISCOMFORT EPIGASTRIC AND PERIUMBILICAL, DENIES FEVER, CHILLS, EMESIS OR DIARRHEA. PATIENT UNDER WENT [address] SCANS WITH INTRAVENOUS CONTRAST CONSISTENT WITH MILD WALL THICKENING AND SIGMOID COLON OTHERWISE NORMAL. THE HIDA SCAN ON 01/05/2018 WAS NORMAL Timing/Duration: yesterday Activities at Onset: none Quality: sharpness, stabbing Abdominal Pain Onset Location: epigastric, periumbilical Pain Radiation: no radiation Severity of Pain-Max: severe Severity of Pain-Current: severe Modifying Factors: Improves With: movement Associated Symptoms: denies symptoms Previous symptoms: same symptoms as today Allergies/Adverse Reactions: No Known Drug Allergies Allergy (Verified 01/01/18 22:42) Home Medications: Albuterol Sulfate Mdi [Proair Hfa MDI] 1.25 mg NEB UD PRN 12/06/17 [ History] PANTOPRAZOLE 40 mg Tablet [Protonix 40MG Tablet] 40 mg PO DAILY 01/02/18 [ History] Hx Tetanus, Diphtheria Vaccination/Date Given: No Hx Influenza Vaccination/Date Given: No Hx Pneumococcal Vaccination/Date Given: No Immunizations Up to Date: No - Review of Systems Constitutional: No Fever, No Chills Eyes: No Symptoms Ears, Nose, & Throat: No Symptoms Respiratory: No Symptoms, No Cough, No Dyspnea Cardiac: No Chest Pain, No Edema, No Syncope Abdominal/Gastrointestinal: Abdominal Pain, No Nausea, No Vomiting, No Diarrhea Genitourinary Symptoms: No Symptoms, No Dysuria Musculoskeletal: No Symptoms, No Back Pain, No Neck Pain Skin: No Symptoms, No Rash Neurological: No Dizziness, No Focal Weakness, No Sensory Changes Psychological: No Symptoms Endocrine: No Symptoms All Other Systems: Reviewed and Negative - Past Medical History Pertinent Past Medical History: Yes Neurological History: Stroke ENT History: Cataracts Cardiac History: Aneurysm Respiratory History: Emphysema, Pneumonia Endocrine Medical History: No Pertinent History Musculoskeletal History: No Pertinent History GI Medical History: Other History: No Pertinent History Psycho-Social History: Anxiety, Depression Female Reproductive Disorders: No Pertinent History Other Medical History: Chronic Abdominal pain; Hepatitis B - Past Surgical History Past Surgical History: Yes Neuro Surgical History: Neurological Surgery Cardiac: No Pertinent History Respiratory: No Pertinent History Gastrointestinal: Other Genitourinary: No Pertinent History Musculoskeletal: No Pertinent History Female Surgical History: No Pertinent History Other Surgical History: Exploratory abdominal surgery - Social History Smoking Status: Current every day smoker How long have you smoked: 40 years Exposure to second hand smoke: Yes Drug Use: none Patient Lives Alone: Yes - Female History Hx Now: No - Nursing Vital Signs Nursing Vital Signs: Initial Vital Signs Temperature 98.8 F 01/09/18 10:57 Pulse Rate 100 H 01/09/18 10:57 Respiratory Rate 23 01/09/18 10:57 Blood Pressure 212/125 01/09/18 10:57 O2 Sat by Pulse Oximetry 97 01/09/18 10:57 Pain Scale Pain Intensity 5 - Physical Exam General Appearance: severe distress, alert Eye Exam: PERRL/EOMI, eyes nml inspection Ears, Nose, Throat Exam: normal ENT inspection, pharynx normal, moist mucous membranes Neck Exam: normal inspection, non-tender, supple, full range of motion Respiratory Exam: normal breath sounds, lungs clear, No respiratory distress Cardiovascular Exam: regular rate/rhythm, normal heart sounds Gastrointestinal/Abdomen Exam: soft, normal bowel sounds, tenderness ( EPIGASTRIC TENDERNESS), No mass Back Exam: normal inspection, normal range of motion, No CVA tenderness, No vertebral tenderness Extremity Exam: normal inspection, normal range of motion, pelvis stable Neurologic Exam: alert, oriented x 3, cooperative, normal mood/affect, nml cerebellar function, sensation nml, No motor deficits Skin Exam: normal color, warm, dry SpO2 Interpretation: normal SpO2: 99 Oxygen Delivery: Room Air Ordered Tests: Active Orders 24 hr Category Date Time Status Up With Assistance ROUTINE Activity 01/09/18 12:56 Active Call Admit Doctor for Orders ON ADMISSION Care 01/09/18 13:00 Active Clean Catch Urine Specimen STAT Care 01/09/18 11:12 Active Code Status Order ROUTINE Care 01/09/18 12:56 Active IV Care Q6H Care 01/09/18 12:56 Active IV Insertion STAT Care 01/09/18 11:[address] in Observation ROUTINE Care 01/09/18 12:56 Active Vital Signs Q4H Care 01/09/18 12:56 Active NPO Diet 01/09/18 13:01 Active AMYLASE Stat Lab 01/09/18 11:30 Completed BLOOD CULTURE Stat Lab 01/09/18 11:40 Received CBC W DIFF Stat Lab 01/09/18 11:30 Completed CMP Stat Lab 01/09/18 11:30 Completed CULTURE,URINE Stat Lab 01/09/18 11:25 Received LIPASE Stat Lab 01/09/18 11:30 Completed Lactic Acid Stat Lab 01/09/18 11:30 Completed UA W/ MICROSCOPIC Stat Lab 01/09/18 11:25 Completed Urine Triage Profile Stat Lab 01/09/18 11:25 Completed Oxygen NASAL CANNULA 2 lpm RT 01/09/18 12:56 Active Transfer Order Routine Transfer 01/09/18 Ordered Medication Summary Generic Name Dose Route Start Last Admin Trade Name Freq PRN Reason Stop Dose Admin Sodium Chloride 1,000 mls @ 500 mls/hr 01/09/18 11:12 01/09/18 11:19 Sodium Chloride 0.9% 1000 Ml IV 01/09/18 13:11 500 mls/hr .Q2H STA Administration Sodium Chloride 1,000 mls @ 100 mls/hr 01/09/18 13:00 Sodium Chloride 0.9% 1000 Ml IV 02/08/18 12:59 .Q10H YOBANY Morphine Sulfate 4 mg 01/09/18 12:56 Morphine Sulfate 4 Mg Inj IV 01/14/18 12:55 Q4H PRN PRN PAIN Ondansetron HCl 4 mg 01/09/18 12:56 Zofran 4 Mg/2 Ml Vial IV 02/08/18 12:55 Q6H PRN PRN NAUSEA/VOMITING Pantoprazole Sodium 40 mg 01/10/18 10:00 Protonix 40 Mg Iv IV 02/09/18 09:59 Q24H10 YOBANY Discontinued Medications Generic Name Dose Route Start Last Admin Trade Name Freq PRN Reason Stop Dose Admin Diphenhydramine HCl 25 mg 01/09/18 11:12 01/09/18 11:21 Benadryl 50 Mg/Ml IV 01/09/18 11:13 25 mg STAT ONE Administration Diphenhydramine HCl Confirm 01/09/18 11:17 Benadryl 50 Mg/Ml Administered 01/09/18 11:18 Dose 50 mg .ROUTE .STK-MED ONE Hydromorphone HCl 1 mg 01/09/18 11:12 01/09/18 11:24 Hydromorphone 1 Mg/Ml Ampule IV 01/09/18 11:13 1 mg STAT ONE Administration Hydromorphone HCl Confirm 01/09/18 11:17 Hydromorphone 1 Mg/Ml Ampule Administered 01/09/18 11:18 Dose 1 mg .ROUTE .STK-MED ONE Sodium Chloride Confirm 01/09/18 11:18 Sodium Chloride 0.9% 1000 Ml Administered 01/09/18 11:19 Dose 1,000 mls @ ud .ROUTE .STK-MED ONE Promethazine HCl 12.5 mg 01/09/18 11:12 01/09/18 11:23 Phenergan 25 Mg Inj IV 01/09/18 11:13 12.5 mg STAT ONE Administration Promethazine HCl Confirm 01/09/18 11:17 Phenergan 25 Mg Inj Administered 01/09/18 11:18 Dose 25 mg .ROUTE .STK-MED ONE Lab/Rad Data: Laboratory Result Diagrams 01/09/18 11:30 01/09/18 11:30 Laboratory Results 01/09/18 01/09/18 01/09/18 Range/Units 11:30 11:30 11:30 WBC 7.5 (4.0-10.5) K/mm3 RBC 4.21 (4.1-5.4) M/mm3 Hgb 12.3 (12.0-16.0) gm/dl Hct 37.6 (35-47) % MCV 89.3 (78-100) fl MCH 29.2 (26-32) pg MCHC 32.7 (32-36) g/dl RDW 14.8 H (11.5-14.0) % Plt Count 292 (150-450) K/mm3 MPV 10.9 H (6-9.5) fl Gran % 79.7 H (36.0-66.0) % Eos # (Auto) 0.21 (0-0.5) Absolute Lymphs (auto) 0.92 L (1.0-4.6) Absolute Monos (auto) 0.36 (0.0-1.3) Lymphocytes % 12.3 L (24.0-44.0) % Monocytes % 4.8 (0.0-12.0) % Eosinophils % 2.8 (0.00-5.0) % Basophils % 0.4 (0.0-0.4) % Absolute Granulocytes 5.93 (1.4-6.9) Basophils # 0.03 (0-0.4) Sodium 137 (137-145) mmol/L Potassium 4.3 (3.5-5.1) mmol/L Chloride 100 (98-107) mmol/L Carbon Dioxide 26 (22-30) mmol/L Anion Gap 15.0 (5-15) MEQ/L BUN 14 (7-17) mg/dL Creatinine 1.05 H (0.52-1.04) mg/dL Estimated GFR 56.8 ML/MIN Glucose 118 H (74-106) mg/dL Lactic Acid 0.8 (0.4-2.0) Calcium 9.5 (8.4-10.2) mg/dL Total Bilirubin 0.50 (0.2-1.3) mg/dL AST 23 (14-36) U/L ALT 14 (0-35) U/L Alkaline Phosphatase 108 (38-126) U/L Serum Total Protein 7.5 (6.3-8.2) g/dL Albumin 4.5 (3.5-5.0) g/dL Amylase 195 H (30-110) U/L Lipase 508 H (23-300) U/L Ur Collection Type Urine Color (YELLOW) Urine Appearance (CLEAR) Urine pH (5-6) Ur Specific [place] (1.005-1.025) Urine Protein (Negative) Urine Ketones (NEGATIVE) Urine Blood (0-5) Joel/ul Urine Nitrite (NEGATIVE) Urine Bilirubin (NEGATIVE) Urine Urobilinogen (0-1) mg/dL Ur Leukocyte Esterase (NEGATIVE) Urine Microscopic RBC (0-2) /HPF Urine Microscopic WBC (0-5) /HPF Ur Epithelial Cells (FEW) /HPF Urine Bacteria (NEGATIVE) /HPF Urine Culture Reflexed (NO) Urine Glucose (NEGATIVE) mg/dL Urine Opiates Level (NEGATIVE) Ur Methadone (NEGATIVE) Urine Barbiturates (NEGATIVE) Ur Phencyclidine (PCP) (NEGATIVE) Urine Amphetamine (NEGATIVE) U Benzodiazepine Level (NEGATIVE) Urine Cocaine (NEGATIVE) Urine Marijuana (THC) (NEGATIVE) Specimen Received 01/09/18 01/09/18 Range/Units 11:25 11:25 WBC (4.0-10.5) K/mm3 RBC (4.1-5.4) M/mm3 Hgb (12.0-16.0) gm/dl Hct (35-47) % MCV (78-100) fl MCH (26-32) pg MCHC (32-36) g/dl RDW (11.5-14.0) % Plt Count (150-450) K/mm3 MPV (6-9.5) fl Gran % (36.0-66.0) % Eos # (Auto) (0-0.5) Absolute Lymphs (auto) (1.0-4.6) Absolute Monos (auto) (0.0-1.3) Lymphocytes % (24.0-44.0) % Monocytes % (0.0-12.0) % Eosinophils % (0.00-5.0) % Basophils % (0.0-0.4) % Absolute Granulocytes (1.4-6.9) Basophils # (0-0.4) Sodium (137-145) mmol/L Potassium (3.5-5.1) mmol/L Chloride (98-107) mmol/L Carbon Dioxide (22-30) mmol/L Anion Gap (5-15) MEQ/L BUN (7-17) mg/dL Creatinine (0.52-1.04) mg/dL Estimated GFR ML/MIN Glucose (74-106) mg/dL Lactic Acid (0.4-2.0) Calcium (8.4-10.2) mg/dL Total Bilirubin (0.2-1.3) mg/dL AST (14-36) U/L ALT (0-35) U/L Alkaline Phosphatase (38-126) U/L Serum Total Protein (6.3-8.2) g/dL Albumin (3.5-5.0) g/dL Amylase (30-110) U/L Lipase (23-300) U/L Ur Collection Type CLEAN CATCH Urine Color YELLOW (YELLOW) Urine Appearance CLEAR (CLEAR) Urine pH 7.0 (5-6) Ur Specific [place] 1.015 (1.005-1.025) Urine Protein TRACE (Negative) Urine Ketones NEGATIVE (NEGATIVE) Urine Blood 5-10 (0-5) Joel/ul Urine Nitrite NEGATIVE (NEGATIVE) Urine Bilirubin NEGATIVE (NEGATIVE) Urine Urobilinogen NORMAL (0-1) mg/dL Ur Leukocyte Esterase NEGATIVE (NEGATIVE) Urine Microscopic RBC 2-5 (0-2) /HPF Urine Microscopic WBC 0-2 (0-5) /HPF Ur Epithelial Cells MODERATE (FEW) /HPF Urine Bacteria FEW (NEGATIVE) /HPF Urine Culture Reflexed YES (NO) Urine Glucose 50 (NEGATIVE) mg/dL Urine Opiates Level NEGATIVE (NEGATIVE) Ur Methadone NEGATIVE (NEGATIVE) Urine Barbiturates NEGATIVE (NEGATIVE) Ur Phencyclidine (PCP) NEGATIVE (NEGATIVE) Urine Amphetamine POSITIVE (NEGATIVE) U Benzodiazepine Level NEGATIVE (NEGATIVE) Urine Cocaine NEGATIVE (NEGATIVE) Urine Marijuana (THC) POSITIVE (NEGATIVE) Specimen Received 01/09/18 1125 - Progress Progress: improved, pain not gone completely Progress Note: 01/09/18 12:51 [address]IENT [address] ABDOM[address]AL PELVIC CT SCAN. IV NORMAL SALINE 500ML/HR, PHENERGAN 12.5MG IVPB, BENADRYL 25MG, DILAUDID 1MG IV WITH MODERATE RELIEF FOR PAIN. Discussed with Dr.: Abhinav Robledo (DISCUSSED WITH DR Maurizio VU AT 1240 FOR OBSERVATION) - Departure Time of Disposition: 13:10 Departure Disposition: Observation Clinical Impression: ACUTE PANCREATITIS, INTRACTABLE ABDOMINAL PAIN Condition: Stable Critical Care Time: No Referrals: JORDAN ROBLEDO [Primary Care Provider] -
[2018-01-09] MEDS ORDERED: Zofran 4 MG/2 ML VIAL IV PRN (12:56)
[2018-01-09 13:07] LABS: Amphetamine,Urine POSITIVE (NEGATIVE)
[2018-01-09] MEDS ORDERED: PROVENTIL COMMON CANISTER IH PRN (13:57)
[2018-01-09] MEDS ORDERED: PROTONIX 40 MG IV IV SCH (15:00)
[2018-01-09] MEDS: MORPHINE SULFATE 4 MG INJ IV PRN ×2 (15:06→20:04)
[2018-01-09] MEDS: Sodium Chloride 0.9% 1000 ML 1,000 ML IV SCH ×2 (15:06→23:12)
[2018-01-09] MEDS ORDERED: ALBUTEROL SULFATE NEB PRN (16:16)
[2018-01-09] MEDS ORDERED: Xopenex 1.25 MG/0.5 ML UD NEBULE IH PRN (16:19)
[2018-01-09] MEDS: Nicoderm CQ 21 MG TOP SCH (17:55)
[2018-01-09] MEDS: ZOFRAN ODT 4 MG PO SCH (22:54)
[2018-01-10] MEDS: MORPHINE SULFATE 4 MG INJ IV PRN ×2 (01:56→09:50)
[2018-01-10] MEDS: Sodium Chloride 0.9% 1000 ML 1,000 ML IV SCH (09:45)
[2018-01-10] MEDS: Nicoderm CQ 21 MG TOP SCH (09:46)
[2018-01-10] MEDS: ZOFRAN ODT 4 MG PO SCH (09:46)
[2018-01-10] MEDS ORDERED: NON-FORMULARY ITEM (Omeprazole [Omeprazole] 20 MG) PO SCH (10:00)
[2018-01-10] MEDS ORDERED: Protonix 40MG Tablet PO SCH (10:00)
[2018-01-10 10:17] LABS: Hematocrit 33.8 % (35-47); Hemoglobin 10.8 gm/dl (12.0-16.0); Mean Cell Volume 91.4 fl (78-100); Mean Platelet Volume 10.3 fl (6-9.5); Platelet Count 245 K/mm3 (150-450); Red Cell Distribution Width 14.8 % (11.5-14.0); White Blood Count 5.3 K/mm3 (4.0-10.5)
[2018-01-10 10:21] LABS: Mean Corpuscular Hemoglobin 29.1 pg (26-32)
[2018-01-10 10:33] LABS: ALBUMIN 3.6 g/dL (3.5-5.0); ANION GAP 14.1 MEQ/L (5-15); BILIRUBIN,TOTAL 0.5 mg/dL (0.2-1.3); Calcium 8.9 mg/dL (8.4-10.2); Creatinine 1 1.14 mg/dL (0.52-1.04); Potassium 4.2 mmol/L (3.5-5.1); Total Protein 6.1 g/dL (6.3-8.2)
[2018-01-10 11:58] VITALS: BP 162/75; PULSE 78; O2SAT 97
--- NOTE | 2018-01-10 12:44 | PCM.DCORD ---
- Discharge Discharge Date: 01/10/18 Disposition: Home, Self-Care Condition: Good Prescriptions: Continue Ondansetron [Zofran Odt] 4 mg PO TID #10 tab.rapdis Albuterol Sulfate Mdi [Proair Hfa MDI] 1.25 mg NEB UD PRN PRN Reason: Shortness Of Breath Omeprazole 20 mg PO DAILY #14 capsule. PANTOPRAZOLE 40 mg Tablet [Protonix 40MG Tablet] 40 mg PO DAILY Nicotine 21 mg [Nicoderm CQ 21 MG] 21 mg TOP DAILY Additional Instructions: PLEASE DO NOT USE METH OR ANY OTHER ILLICIT DRUGS, IT IS DANGEROUS TO YOUR HEALTH. PLEASE FOLLOWUP WITH GI SPECIALIST SCHEDULED, DR. HUIZAR OFFICE TO CONTACT YOU. Follow up with: JORDAN ROBLEDO [Primary Care Provider] - 01/18/18 11:15 am ([facility])
--- NOTE | 2018-01-13 20:26 | PCM.SSS ---
History of Present Illness - Chief Complaint Chief Complaint: abdominal pain off and on for few months History of Present Illness: .PATIENT IS 62 YRS OLD FEMALE WITH A HISTORY OF CHRONIC PANCREATITIS, INTRACTABLE ABDOMINAL PAIN, HAS HAD MULTIPLE EMERGENCY ROOM VISITS LAST MONTH FOR ABDOMINAL PAIN. COMPLAINS OF INCREASING PAIN DISCOMFORT EPIGASTRIC AND PERIUMBILICAL, DENIES FEVER, CHILLS, EMESIS OR DIARRHEA. PATIENT UNDER WENT [address] SCANS WITH INTRAVENOUS CONTRAST CONSISTENT WITH MILD WALL THICKENING AND SIGMOID COLON OTHERWISE NORMAL. THE HIDA SCAN ON 01/05/2018 WAS NORMAL Timing/Duration: yesterday Activities at Onset: none Quality: sharpness, stabbing Abdominal Pain Onset Location: epigastric, periumbilical Pain Radiation: no radiation Severity of Pain-Max: severe Severity of Pain-Current: severe Modifying Factors: Improves With: movement Associated Symptoms: denies symptoms Previous symptoms: same symptoms as today - Review of Systems Constitutional: No Fever, No Chills Eyes: No Symptoms Ears, Nose, & Throat: No Symptoms Respiratory: No Cough, No Short Of Breath Cardiac: No Chest Pain, No Edema, No Syncope Abdominal/Gastrointestinal: Abdominal Pain, No Nausea, No Vomiting, No Diarrhea Genitourinary Symptoms: No Dysuria Musculoskeletal: No Back Pain, No Neck Pain Skin: No Rash Neurological: No Dizziness, No Focal Weakness, No Sensory Changes Psychological: No Symptoms Endocrine: No Symptoms Hematologic/Lymphatic: No Symptoms Immunological/Allergic: No Symptoms Medications & Allergies Home Medications: Home Medication List Ondansetron [Zofran Odt] 4 mg PO TID #10 tab.rapdis 02/08/16 [Rx Confirmed 01/09] Albuterol Sulfate Mdi [Proair Hfa MDI] 1.25 mg NEB UD PRN 12/06/17 [ History Confirmed 01/09/18] Omeprazole 20 mg PO DAILY #14 capsule. 12/06/17 [Rx Confirmed 01/09/18] PANTOPRAZOLE 40 mg Tablet [Protonix 40MG Tablet] 40 mg PO DAILY 01/02/18 [ History Confirmed 01/09/18] Nicotine 21 mg [Nicoderm CQ 21 MG] 21 mg TOP DAILY 01/09/18 [History Confirmed 01/09/18] Allergies/Adverse Reactions: Allergies Allergy/AdvReac Type Severity Reaction Status Date / Time No Known Drug Allergies Allergy Verified 01/01/18 22:42 - Past Medical History Past Medical History: Yes Neurological History: Stroke ENT History: Cataracts Cardiac History: Aneurysm Respiratory History: Emphysema, Pneumonia Endocrine Medical History: No Pertinent History Musculoskelatal History: No Pertinent History GI Medical History: Pancreatitis, Other History: No Pertinent History Pyscho-Social History: Anxiety, Depression Reproductive Disorders: No Pertinent History Comment: Chronic Abdominal pain; Hepatitis B - Female History Are you now?: No - Past Surgical History Past Surgical History: Yes Neuro Surgical History: Neurological Surgery Cardiac History: No Pertinent History Respiratory Surgery: No Pertinent History GI Surgical History: Other Genitourinary Surgical Hx: No Pertinent History Musculskeletal Surgical Hx: No Pertinent History Female Surgical History: No Pertinent History Other Surgical History: Exploratory abdominal surgery - Social History Smoking Status: Current every day smoker How long have you smoked: 40 years Exposure to second hand smoke: Yes Alcohol: Occasionally Drug Use: marijuana, bath salts, other - Physical Exam General Appearance: no apparent distress, alert Neurologic Exam: alert, oriented x 3, cooperative, normal mood/affect, nml cerebellar function, nml station & gait, sensation nml, No motor deficits Eye Exam: PERRL/EOMI, eyes nml inspection Ears, Nose, Throat Exam: normal ENT inspection, TMs normal, pharynx normal, moist mucous membranes Neck Exam: normal inspection, non-tender, supple, full range of motion Respiratory Exam: normal breath sounds, lungs clear, No respiratory distress Cardiovascular Exam: regular rate/rhythm, normal heart sounds, normal peripheral pulses Gastrointestinal/Abdomen Exam: soft, normal bowel sounds, tenderness, No mass Back Exam: normal inspection, normal range of motion, No CVA tenderness, No vertebral tenderness Extremity Exam: normal inspection, normal range of motion, pelvis stable Skin Exam: normal color, warm, dry, No rash Lymphatic Exam: No adenopathy Assessment/Plan (1) Pancreatitis Status: Acute Onset Date: ~01/02/18 Qualifiers: Pancreatitis type: drug induced Acute pancreatitis complication: no infection or necrosis Assessment & Plan: Chief Complaint Diagnosis Pancreatitis. Allergies Allergy/AdvReac Type Severity Reaction Status Date / Time No Known Drug Allergies Allergy Verified 01/01/18 22:42 Home Medications Medication Instructions Recorded Confirmed Last Taken Type Nicotine 21 mg [Nicoderm CQ 21 21 mg TOP DAILY 01/09/18 01/09/18 Unknown History MG] Current Medications Discontinued Medications Generic Name Dose Route Start Last Admin Trade Name Freq PRN Reason Stop Dose Admin Albuterol Sulfate 2 puff 01/09/18 13:57 Proventil Common Canister IH 02/08/18 13:56 Q4HPRN PRN SHORTNESS OF BREATH/WHEEZING Diphenhydramine HCl 25 mg 01/09/18 11:12 01/09/18 11:21 Benadryl 50 Mg/Ml IV 01/09/18 11:13 25 mg STAT ONE Administration Diphenhydramine HCl Confirm 01/09/18 11:17 Benadryl 50 Mg/Ml Administered 01/09/18 11:18 Dose 50 mg .ROUTE .STK-MED ONE Hydromorphone HCl 1 mg 01/09/18 11:12 01/09/18 11:24 Hydromorphone 1 Mg/Ml Ampule IV 01/09/18 11:13 1 mg STAT ONE Administration Hydromorphone HCl Confirm 01/09/18 11:17 Hydromorphone 1 Mg/Ml Ampule Administered 01/09/18 11:18 Dose 1 mg .ROUTE .STK-MED ONE Sodium Chloride 1,000 mls @ 500 mls/hr 01/09/18 11:12 01/09/18 11:19 Sodium Chloride 0.9% 1000 Ml IV 01/09/18 13:11 500 mls/hr .Q2H STA Administration Sodium Chloride Confirm 01/09/18 11:18 Sodium Chloride 0.9% 1000 Ml Administered 01/09/18 11:19 Dose 1,000 mls @ ud .ROUTE .STK-MED ONE Sodium Chloride 1,000 mls @ 100 mls/hr 01/09/18 13:00 01/10/18 09:45 Sodium Chloride 0.9% 1000 Ml IV 02/08/18 12:59 100 mls/hr .Q10H YOBANY Administration Levalbuterol HCl 1.25 mg 01/09/18 16:19 Xopenex 1.25 Mg/0.5 Ml Ud Nebule IH 02/08/18 16:18 UD PRN SHORTNESS OF BREATH Morphine Sulfate 4 mg 01/09/18 12:56 01/10/18 09:50 Morphine Sulfate 4 Mg Inj IV 01/14/18 12:55 4 mg Q4H PRN PRN Administration PAIN Nicotine 21 mg 01/09/18 17:00 01/10/18 09:46 Nicoderm Cq 21 Mg TOP 02/08/18 16:59 21 mg DAILY YOBANY Administration Ondansetron HCl 4 mg 01/09/18 12:56 01/09/18 15:05 Zofran 4 Mg/2 Ml Vial IV 02/08/18 12:55 4 mg Q6H PRN PRN Administration NAUSEA/VOMITING Ondansetron HCl 4 mg 01/09/18 22:00 01/10/18 09:46 Zofran Odt 4 Mg PO 02/08/18 21:59 4 mg TID YOBANY Administration Pantoprazole Sodium 40 mg 01/09/18 15:00 01/09/18 15:05 Protonix 40 Mg Iv IV 02/08/18 14:59 40 mg Q24H10 YOBANY Administration Pantoprazole Sodium 40 mg 01/10/18 10:00 01/10/18 09:46 Protonix 40mg Tablet PO 02/09/18 09:59 40 mg DAILY YOBANY Administration Promethazine HCl 12.5 mg 01/09/18 11:12 01/09/18 11:23 Phenergan 25 Mg Inj IV 01/09/18 11:13 12.5 mg STAT ONE Administration Promethazine HCl Confirm 01/09/18 11:17 Phenergan 25 Mg Inj Administered 01/09/18 11:18 Dose 25 mg .ROUTE .STK-MED ONE Intake & Output (Last 24 hours) 01/11/18 01/12/18 01/13/18 01/14/18 11:59 11:59 11:59 11:59 Intake Total 240 Balance 240 Code(s): K85.90 - ACUTE PANCREATITIS WITHOUT NECROSIS OR INFECTION, UNSP (2) Intractable abdominal pain Status: Resolved Onset Date: ~12/23/17 Code(s): R10.9 - UNSPECIFIED ABDOMINAL PAIN (3) Methamphetamine use Status: Chronic Onset Date: ~01/02/18 Code(s): F15.10 - OTHER STIMULANT ABUSE, UNCOMPLICATED (4) Tetrahydrocannabinol (THC) use disorder, moderate, dependence Status: Chronic Onset Date: ~12/23/17 Code(s): F12.20 - CANNABIS DEPENDENCE , UNCOMPLICATED (5) Chronic abdominal pain Status: Chronic Onset Date: ~12/23/17 Code(s): R10.9 - UNSPECIFIED ABDOMINAL PAIN; G89.29 - OTHER CHRONIC PAIN Hospital Summary - Hospital Course Hospital Course: Last Vital Signs Temp 98.4 F 01/10/18 11:57 Pulse 78 01/10/18 11:57 Resp 18 01/10/18 12:00 BP 162/75 01/10/18 11:57 Pulse Ox 97 01/10/18 11:57 Allergies No Known Drug Allergies Allergy (Verified 01/01/18 22:42) Chief Complaint Diagnosis Pancreatitis. Allergies Allergy/AdvReac Type Severity Reaction Status Date / Time No Known Drug Allergies Allergy Verified 01/01/18 22:42 Home Medications Medication Instructions Recorded Confirmed Last Taken Type Nicotine 21 mg [Nicoderm CQ 21 21 mg TOP DAILY 01/09/18 01/09/18 Unknown History MG] Current Medications Discontinued Medications Generic Name Dose Route Start Last Admin Trade Name Freq PRN Reason Stop Dose Admin Albuterol Sulfate 2 puff 01/09/18 13:57 Proventil Common Canister IH 02/08/18 13:56 Q4HPRN PRN SHORTNESS OF BREATH/WHEEZING Diphenhydramine HCl 25 mg 01/09/18 11:12 01/09/18 11:21 Benadryl 50 Mg/Ml IV 01/09/18 11:13 25 mg STAT ONE Administration Diphenhydramine HCl Confirm 01/09/18 11:17 Benadryl 50 Mg/Ml Administered 01/09/18 11:18 Dose 50 mg .ROUTE .STK-MED ONE Hydromorphone HCl 1 mg 01/09/18 11:12 01/09/18 11:24 Hydromorphone 1 Mg/Ml Ampule IV 01/09/18 11:13 1 mg STAT ONE Administration Hydromorphone HCl Confirm 01/09/18 11:17 Hydromorphone 1 Mg/Ml Ampule Administered 01/09/18 11:18 Dose 1 mg .ROUTE .STK-MED ONE Sodium Chloride 1,000 mls @ 500 mls/hr 01/09/18 11:12 01/09/18 11:19 Sodium Chloride 0.9% 1000 Ml IV 01/09/18 13:11 500 mls/hr .Q2H STA Administration Sodium Chloride Confirm 01/09/18 11:18 Sodium Chloride 0.9% 1000 Ml Administered 01/09/18 11:19 Dose 1,000 mls @ ud .ROUTE .STK-MED ONE Sodium Chloride 1,000 mls @ 100 mls/hr 01/09/18 13:00 01/10/18 09:45 Sodium Chloride 0.9% 1000 Ml IV 02/08/18 12:59 100 mls/hr .Q10H YOBANY Administration Levalbuterol HCl 1.25 mg 01/09/18 16:19 Xopenex 1.25 Mg/0.5 Ml Ud Nebule IH 02/08/18 16:18 UD PRN SHORTNESS OF BREATH Morphine Sulfate 4 mg 01/09/18 12:56 01/10/18 09:50 Morphine Sulfate 4 Mg Inj IV 01/14/18 12:55 4 mg Q4H PRN PRN Administration PAIN Nicotine 21 mg 01/09/18 17:00 01/10/18 09:46 Nicoderm Cq 21 Mg TOP 02/08/18 16:59 21 mg DAILY YOBANY Administration Ondansetron HCl 4 mg 01/09/18 12:56 01/09/18 15:05 Zofran 4 Mg/2 Ml Vial IV 02/08/18 12:55 4 mg Q6H PRN PRN Administration NAUSEA/VOMITING Ondansetron HCl 4 mg 01/09/18 22:00 01/10/18 09:46 Zofran Odt 4 Mg PO 02/08/18 21:59 4 mg TID YOBANY Administration Pantoprazole Sodium 40 mg 01/09/18 15:00 01/09/18 15:05 Protonix 40 Mg Iv IV 02/08/18 14:59 40 mg Q24H10 YOBANY Administration Pantoprazole Sodium 40 mg 01/10/18 10:00 01/10/18 09:46 Protonix 40mg Tablet PO 02/09/18 09:59 40 mg DAILY YOBANY Administration Promethazine HCl 12.5 mg 01/09/18 11:12 01/09/18 11:23 Phenergan 25 Mg Inj IV 01/09/18 11:13 12.5 mg STAT ONE Administration Promethazine HCl Confirm 01/09/18 11:17 Phenergan 25 Mg Inj Administered 01/09/18 11:18 Dose 25 mg .ROUTE .STK-MED ONE Intake & Output (Last 24 hours) 01/11/18 01/12/18 01/13/18 01/14/18 11:59 11:59 11:59 11:59 Intake Total 240 Balance 240 - Vitals & Intake/Output Vital Signs: Vital Signs Temperature 98.4 F 01/10/18 11:57 Pulse Rate 78 01/10/18 11:57 Respiratory Rate 18 01/10/18 12:00 Blood Pressure 162/75 01/10/18 11:57 O2 Sat by Pulse Oximetry 97 01/10/18 11:57 Intake & Output: Intake & Output 01/11/18 01/12/18 01/13/18 01/14/18 11:59 11:59 11:59 11:59 Intake Total 240 Balance 240 - Lab Result Diagrams: 01/10/18 10:14 01/10/18 10:14 - Procedures and Test Procedures and Tests throughout Hospitalization: Therapy Orders & Screens 01/09/18 12:56 Oxygen NASAL CANNULA 2 lpm Comment: 01/09/18 13:57 Respiratory MDI Comment: ALBUTEROL MDI Q4PRN Diagnosis: ACUTE PANCREATITIS 01/09/18 15:33 Smoking Cessation Education ONCE Comment: Diagnosis: Pancreatitis. Smoking Status: Current every day smoker How long have you smoked: 40 years Have you smoked in the past 12 months: Yes Approximately how many cigarettes per day: 20 Do you dip or chew tobacco: No If,Former Smoker,when did you quit: 2 MONTHS - Discharge Discharge Date: 01/10/18 Disposition: Home, Self-Care Condition: Good Prescriptions: Continue Ondansetron [Zofran Odt] 4 mg PO TID #10 tab.rapdis Albuterol Sulfate Mdi [Proair Hfa MDI] 1.25 mg NEB UD PRN PRN Reason: Shortness Of Breath Omeprazole 20 mg PO DAILY #14 capsule. PANTOPRAZOLE 40 mg Tablet [Protonix 40MG Tablet] 40 mg PO DAILY Nicotine 21 mg [Nicoderm CQ 21 MG] 21 mg TOP DAILY Instructions: [place] Diet, Drug Abuse and Drug Addiction ([place]), Chronic Pancreatitis (DC) Additional Instructions: PLEASE DO NOT USE METH OR ANY OTHER ILLICIT DRUGS, IT IS DANGEROUS TO YOUR HEALTH. PLEASE FOLLOWUP WITH GI SPECIALIST SCHEDULED, DR. HUIZAR OFFICE TO CONTACT YOU. Follow up with: JORDAN ROBLEDO [Primary Care Provider] - 01/18/18 11:15 am ([facility]) Forms: Discharge Instructions
== END 2018-01-10 13:50 | disposition home or self-care (01) ==
LOC: ED 10:50 → MED SURG 13:38
PROVIDERS: ADMIT General Practice; ATTEND General Practice
DX: F15.10 Other stimulant abuse, uncomplicated (principal); F12.20 Cannabis dependence, uncomplicated; R10.9 Unspecified abdominal pain; Z86.73 Personal history of transient ischemic attack (TIA), and cerebral infarction without residual deficits; F41.8 Other specified anxiety disorders; B19.10 Unspecified viral hepatitis B without hepatic coma; Z72.0 Tobacco use; Z79.899 Other long term (current) drug therapy
CPT/HCPCS: 36000; 36415; 80053; 80307; 81000; 82150; 83605; 83690; 85025; 85027; 87040; 87086; 94760; 96360; 96374; 96375; 99285; G0378; J1170; J1200; J2270; J2405; J2550; Q0162; A9270-GY

== ENCOUNTER 2018-02-19 05:07 | Emergency (ER) | payer BC ==
[2018-02-19] MEDS ORDERED: Sodium Chloride 0.9% 1000 ML 1,000 ML ONE (05:44)
[2018-02-19] MEDS ORDERED: MORPHINE SULFATE 4 MG INJ ONE ×2 (05:44→07:40)
[2018-02-19] MEDS ORDERED: Zofran 4 MG/2 ML VIAL ONE (05:44)
--- NOTE | 2018-02-19 05:48 | ERPHSYRPT ---
- History of Present Illness Historian: patient Exam Limitations: no limitations Patient Subjective Stated Complaint: Pt arrives to ER with c/o of her chronic abdominal pain while rolling around in bed crying out loudly in pain without any tears yet is able to stop crying to talk to staff during assessment. pt has presented in this fashion multiple times specifically in the past few weeks stating has pancreatitis although todays pain is in lower abdomen. States had some diarrhea and Sunday but has since resolved. States has nausea without vomiting. Abdominal pain started and has been intermittent since worse around midnight and eating makes pain worse stating "real sharp pains that take my breath away". Pt became very upset when asked about drug use stating "marijuana does not give me pain like this". Incidentally, during pt random outburst of anger, pt was no longer crying or rolling around on the bed but was instead sitting very still and speaking in a clear loud voice while yelling at this RN. After pt finished yelling at this RN, this RN asked pt if she was still in pain since she was no longer crying. As if pt suddently remembered she was in pain, she continued her bellowing out in pain yet again. Triage Nursing Assessment: see above Timing/Duration: day(s) Activities at Onset: none Quality: sharpness Abdominal Pain Onset Location: RLQ, periumbilical Pain Radiation: no radiation Severity of Pain-Max: severe Severity of Pain-Current: severe Modifying Factors: Improves With: nothing Associated Symptoms: nausea Previous symptoms: different symptoms Hx Tetanus, Diphtheria Vaccination/Date Given: No Hx Influenza Vaccination/Date Given: No Hx Pneumococcal Vaccination/Date Given: No <MIGUE RITTER - Last Filed: 02/19/18 06:43> <EMMANUELLE WEINSTEIN - Last Filed: 02/19/18 09:47> - History of Present Illness Time Seen by Provider: 02/19/18 05:40 Physician History: 62 y/o female with history of pancreatitis comes to the ER with complaints of midabdominal and RLQ abdominal pain since . Pt says she has had pancreatitis in the past but has never had the lower abdominal pain before. Pt describes the pain as sharp, constant, 10/10, and not relieved by tylenol. Pt also admits to nausea and had diarrhea all day on . Pt denies any fever , chills, vomiting, constipation, bloody stools or urinary symptoms. Pt last had alcohol 4 months ago. (MIGUE RITTER) Allergies/Adverse Reactions: No Known Drug Allergies Allergy (Verified 02/19/18 05:34) Home Medications: Albuterol Sulfate Mdi [Proair Hfa MDI] 1.25 mg NEB UD PRN 12/06/17 [ History] PANTOPRAZOLE 40 mg Tablet [Protonix 40MG Tablet] 40 mg PO DAILY 01/02/18 [ History] Nicotine 21 mg [Nicoderm CQ 21 MG] 21 mg TOP DAILY 01/09/18 [History] - Review of Systems Constitutional: No Fever, No Chills Eyes: No Symptoms Ears, Nose, & Throat: No Symptoms Respiratory: No Cough, No Dyspnea Cardiac: No Chest Pain, No Edema, No Syncope Abdominal/Gastrointestinal: Abdominal Pain, Nausea, Diarrhea, No Vomiting Genitourinary Symptoms: No Dysuria Musculoskeletal: No Back Pain, No Neck Pain Skin: No Rash Neurological: No Dizziness, No Focal Weakness, No Sensory Changes Psychological: No Symptoms Endocrine: No Symptoms All Other Systems: Reviewed and Negative <MIGUE RITTER - Last Filed: 02/19/18 06:43> - Past Medical History Pertinent Past Medical History: Yes Neurological History: Stroke ENT History: Cataracts Cardiac History: Aneurysm Respiratory History: Emphysema, Pneumonia Endocrine Medical History: No Pertinent History Musculoskeletal History: No Pertinent History GI Medical History: Pancreatitis, Other History: No Pertinent History Psycho-Social History: Anxiety, Depression Female Reproductive Disorders: No Pertinent History Other Medical History: Chronic Abdominal pain; Hepatitis B - Past Surgical History Past Surgical History: Yes Neuro Surgical History: Neurological Surgery Cardiac: No Pertinent History Respiratory: No Pertinent History Gastrointestinal: Other Genitourinary: No Pertinent History Musculoskeletal: No Pertinent History Female Surgical History: No Pertinent History Other Surgical History: Exploratory abdominal surgery - Social History Smoking Status: Current every day smoker How long have you smoked: 40 years Exposure to second hand smoke: No Drug Use: marijuana Patient Lives Alone: No - Female History Hx Now: No <MIGUE RITTER - Last Filed: 02/19/18 06:43> - Physical Exam General Appearance: mild distress, alert, anxiety Eye Exam: PERRL/EOMI, eyes nml inspection, post op pupil defect (L) Ears, Nose, Throat Exam: normal ENT inspection, pharynx normal, moist mucous membranes Neck Exam: normal inspection, non-tender, supple, full range of motion Respiratory Exam: normal breath sounds, lungs clear, No respiratory distress Cardiovascular Exam: regular rate/rhythm, normal heart sounds Gastrointestinal/Abdomen Exam: soft, normal bowel sounds, tenderness, No distention, No mass Back Exam: normal inspection, normal range of motion, No CVA tenderness, No vertebral tenderness Extremity Exam: normal inspection, normal range of motion, pelvis stable Neurologic Exam: alert, oriented x 3, cooperative, normal mood/affect, nml cerebellar function, sensation nml, No motor deficits Skin Exam: normal color, warm, dry SpO2: 98 Oxygen Delivery: Room Air <MIGUE RITTER - Last Filed: 02/19/18 06:43> - Nursing Vital Signs Nursing Vital Signs: Initial Vital Signs Pulse Rate 85 02/19/18 05:20 Respiratory Rate 18 02/19/18 05:20 Blood Pressure 174/116 02/19/18 05:20 O2 Sat by Pulse Oximetry 98 02/19/18 05:20 Pain Scale Pain Intensity 6 - CT Exams Abdomen/Pelvis CT Interpretation: Tele-radiologist Report, No appendicitis (appendix not seen.) , Other (mild diffuse small and large bowel wall thickening/rule out enterocolitis per Dr Mojica.) <EMMANUELLE WEINSTEIN - Last Filed: 02/19/18 09:47> Ordered Tests: Active Orders 24 hr Category Date Time Status IV Insertion STAT Care 02/19/18 05:41 Active NPO (ED) STAT Care 02/19/18 05:41 Active ABDOMEN AND PELVIS W/0 CONTRAS [CT] Stat Exams 02/19/18 05:41 Completed AMYLASE Stat Lab 02/19/18 05:55 Completed CBC W DIFF Stat Lab 02/19/18 05:55 Completed CMP Stat Lab 02/19/18 05:55 Completed LIPASE Stat Lab 02/19/18 05:55 Completed Lactic Acid Stat Lab 02/19/18 05:55 Completed UA W/RFX UR CULTURE Stat Lab 02/19/18 08:38 Completed Medication Summary Discontinued Medications Generic Name Dose Route Start Last Admin Trade Name Freq PRN Reason Stop Dose Admin Sodium Chloride 1,000 mls @ 999 mls/hr 02/19/18 05:41 02/19/18 08:18 Sodium Chloride 0.9% 1000 Ml IV 02/19/18 06:41 Infused .Q1H1M STA Infusion Sodium Chloride Confirm 02/19/18 05:44 Sodium Chloride 0.9% 1000 Ml Administered 02/19/18 05:45 Dose 1,000 mls @ ud .ROUTE .STK-MED ONE Ketorolac Tromethamine 30 mg 02/19/18 07:36 02/19/18 07:51 Toradol 30 Mg Injection IV 02/19/18 07:37 30 mg STAT ONE Administration Ketorolac Tromethamine Confirm 02/19/18 07:40 Toradol 30 Mg Injection Administered 02/19/18 07:41 Dose 30 mg .ROUTE .STK-MED ONE Morphine Sulfate 4 mg 02/19/18 05:41 02/19/18 06:01 Morphine Sulfate 4 Mg Inj IV 02/19/18 05:42 4 mg STAT ONE Administration Morphine Sulfate Confirm 02/19/18 05:44 Morphine Sulfate 4 Mg Inj Administered 02/19/18 05:45 Dose 4 mg .ROUTE .STK-MED ONE Morphine Sulfate 4 mg 02/19/18 07:34 02/19/18 07:50 Morphine Sulfate 4 Mg Inj IV 02/19/18 07:35 4 mg STAT ONE Administration Morphine Sulfate Confirm 02/19/18 07:40 Morphine Sulfate 4 Mg Inj Administered 02/19/18 07:41 Dose 4 mg .ROUTE .STK-MED ONE Ondansetron HCl 4 mg 02/19/18 05:41 02/19/18 06:01 Zofran 4 Mg/2 Ml Vial IV 02/19/18 05:42 4 mg STAT ONE Administration Ondansetron HCl Confirm 02/19/18 05:44 Zofran 4 Mg/2 Ml Vial Administered 02/19/18 05:45 Dose 4 mg .ROUTE .STK-MED ONE Promethazine HCl 12.5 mg 02/19/18 06:56 02/19/18 07:00 Phenergan 25 Mg Inj IM 02/19/18 06:57 12.5 mg STAT ONE Administration Promethazine HCl Confirm 02/19/18 06:58 Phenergan 25 Mg Inj Administered 02/19/18 06:59 Dose 25 mg .ROUTE .STK-MED ONE Promethazine HCl 12.5 mg 02/19/18 07:35 02/19/18 07:50 Phenergan 25 Mg Inj IV 02/19/18 07:36 12.5 mg STAT ONE Administration Promethazine HCl Confirm 02/19/18 07:40 Phenergan 25 Mg Inj Administered 02/19/18 07:41 Dose 25 mg .ROUTE .STK-MED ONE Lab/Rad Data: Laboratory Result Diagrams 02/19/18 05:55 02/19/18 05:55 Laboratory Results 02/19/18 02/19/18 02/19/18 Range/Units 08:38 05:55 05:55 WBC (4.0-10.5) K/mm3 RBC (4.1-5.4) M/mm3 Hgb (12.0-16.0) gm/dl Hct (35-47) % MCV (78-100) fl MCH (26-32) pg MCHC (32-36) g/dl RDW (11.5-14.0) % Plt Count (150-450) K/mm3 MPV (6-9.5) fl Gran % (36.0-66.0) % Eos # (Auto) (0-0.5) Absolute Lymphs (auto) (1.0-4.6) Absolute Monos (auto) (0.0-1.3) Lymphocytes % (24.0-44.0) % Monocytes % (0.0-12.0) % Eosinophils % (0.00-5.0) % Basophils % (0.0-0.4) % Absolute Granulocytes (1.4-6.9) Basophils # (0-0.4) Sodium 138 (137-145) mmol/L Potassium 4.0 (3.5-5.1) mmol/L Chloride 104 (98-107) mmol/L Carbon Dioxide 26 (22-30) mmol/L Anion Gap 12.1 (5-15) MEQ/L BUN 12 (7-17) mg/dL Creatinine 1.06 H (0.52-1.04) mg/dL Estimated GFR 56.2 ML/MIN Glucose 112 H (74-106) mg/dL Lactic Acid 1.2 (0.4-2.0) Calcium 9.1 (8.4-10.2) mg/dL Total Bilirubin 0.20 (0.2-1.3) mg/dL AST 19 (14-36) U/L ALT 11 (0-35) U/L Alkaline Phosphatase 73 (38-126) U/L Serum Total Protein 6.2 L (6.3-8.2) g/dL Albumin 3.6 (3.5-5.0) g/dL Amylase 97 (30-110) U/L Lipase 118 (23-300) U/L Ur Collection Type CLEAN CATCH Urine Color YELLOW (YELLOW) Urine Appearance CLEAR (CLEAR) Urine pH 7.0 (5-6) Ur Specific [place] 1.010 (1.005-1.025) Urine Protein NEGATIVE (Negative) Urine Ketones NEGATIVE (NEGATIVE) Urine Blood NEGATIVE (0-5) Joel/ul Urine Nitrite NEGATIVE (NEGATIVE) Urine Bilirubin NEGATIVE (NEGATIVE) Urine Urobilinogen NORMAL (0-1) mg/dL Ur Leukocyte Esterase NEGATIVE (NEGATIVE) Urine Culture Reflexed NO (NO) Urine Glucose 100 (NEGATIVE) mg/dL Specimen Received 02-19-18 0830 02/19/18 Range/Units 05:55 WBC 6.9 (4.0-10.5) K/mm3 RBC 4.22 (4.1-5.4) M/mm3 Hgb 12.3 (12.0-16.0) gm/dl Hct 36.4 (35-47) % MCV 86.3 (78-100) fl MCH 29.1 (26-32) pg MCHC 33.8 (32-36) g/dl RDW 14.8 H (11.5-14.0) % Plt Count 268 (150-450) K/mm3 MPV 10.2 H (6-9.5) fl Gran % 71.0 H (36.0-66.0) % Eos # (Auto) 0.18 (0-0.5) Absolute Lymphs (auto) 1.23 (1.0-4.6) Absolute Monos (auto) 0.56 (0.0-1.3) Lymphocytes % 17.9 L (24.0-44.0) % Monocytes % 8.1 (0.0-12.0) % Eosinophils % 2.6 (0.00-5.0) % Basophils % 0.4 (0.0-0.4) % Absolute Granulocytes 4.88 (1.4-6.9) Basophils # 0.03 (0-0.4) Sodium (137-145) mmol/L Potassium (3.5-5.1) mmol/L Chloride (98-107) mmol/L Carbon Dioxide (22-30) mmol/L Anion Gap (5-15) MEQ/L BUN (7-17) mg/dL Creatinine (0.52-1.04) mg/dL Estimated GFR ML/MIN Glucose (74-106) mg/dL Lactic Acid (0.4-2.0) Calcium (8.4-10.2) mg/dL Total Bilirubin (0.2-1.3) mg/dL AST (14-36) U/L ALT (0-35) U/L Alkaline Phosphatase (38-126) U/L Serum Total Protein (6.3-8.2) g/dL Albumin (3.5-5.0) g/dL Amylase (30-110) U/L Lipase (23-300) U/L Ur Collection Type Urine Color (YELLOW) Urine Appearance (CLEAR) Urine pH (5-6) Ur Specific [place] (1.005-1.025) Urine Protein (Negative) Urine Ketones (NEGATIVE) Urine Blood (0-5) Joel/ul Urine Nitrite (NEGATIVE) Urine Bilirubin (NEGATIVE) Urine Urobilinogen (0-1) mg/dL Ur Leukocyte Esterase (NEGATIVE) Urine Culture Reflexed (NO) Urine Glucose (NEGATIVE) mg/dL Specimen Received - Progress Progress: improved <MIGUE RITTER - Last Filed: 02/19/18 06:43> - Progress Counseled pt/family regarding: lab results, diagnosis, need for follow-up, rad results <EMMANUELLE WEINSTEIN - Last Filed: 02/19/18 09:47> - Progress Progress Note: 02/19/18 06:42 Pt feels better after receiving dilaudid and zofran. Awaiting CT abdomen/pelvis and will sign out to Dr Weinstein. (MIGUE RITTER) 02/19/18 07:23 Pt care discussed and care accepted from Dr Ritter at 07:00. 02/19/18 09:39 Pt given MSO4 mg, zofran 4 mg, and phenergan 12.[address] Ritter. Pt given MSO4 4 mg and phenergan 12.5 mg IV by wa. Pt feeling much better. (EMMANUELLE WEINSTEIN) <MIGUE RITTER - Last Filed: 02/19/18 06:43> - Departure Time of Disposition: 09:43 Departure Disposition: Home Critical Care Time: No <EMMANUELLE WEINSTEIN - Last Filed: 02/19/18 09:47> - Departure Clinical Impression: Enterocolitis Condition: Stable Referrals: JORDAN ROBLEDO [Primary Care Provider] - Additional Instructions: Your abdominal pain is caused by enterocolitis, and infection in your small and large intestines. You were given morphine 4 mg twice, Phenergan 12.5 mg twice, Zofran 4 mg by IV in the ER. Take ciprofloxacin 500 mg 2 times a day for 3 days. Follow-up with Dr. Miner. His office phone number is [phone]. Prescriptions: Ciprofloxacin [Cipro 500 MG] 1 tab PO BID #6 tablet
[2018-02-19] MEDS: MORPHINE SULFATE 4 MG INJ IV ONE ×2 (06:01→07:50)
[2018-02-19] MEDS: Sodium Chloride 0.9% 1000 ML 1,000 ML IV STA (06:01)
[2018-02-19] MEDS: Zofran 4 MG/2 ML VIAL IV ONE (06:01)
[2018-02-19 06:04] LABS: BASOPHIL % 0.4 % (0.0-0.4); Basophil (Absolute #) 0.03 (0-0.4); Eosinophil % 2.6 % (0.00-5.0); Eosinophil (Absolute #) 0.18 (0-0.5); Granulocyte Absolute (ANC) 4.88 (1.4-6.9); Hematocrit 36.4 % (35-47); Hemoglobin 12.3 gm/dl (12.0-16.0); Lymphocyte (Absolute #) 1.23 (1.0-4.6); Lymphocytes % 17.9 % (24.0-44.0); Mean Cell Volume 86.3 fl (78-100); Mean Corpuscular Hemoglobin 29.1 pg (26-32); Mean Corpuscular Hgb Concent. 33.8 g/dl (32-36); Mean Platelet Volume 10.2 fl (6-9.5); Monocyte (Absolute #) 0.56 (0.0-1.3); Monocytes % 8.1 % (0.0-12.0); Platelet Count 268 K/mm3 (150-450); Red Blood Count 4.22 M/mm3 (4.1-5.4); Red Cell Distribution Width 14.8 % (11.5-14.0); White Blood Count 6.9 K/mm3 (4.0-10.5)
[2018-02-19 06:52] LABS: ALBUMIN 3.6 g/dL (3.5-5.0); ANION GAP 12.1 MEQ/L (5-15); BILIRUBIN,TOTAL 0.2 mg/dL (0.2-1.3); Calcium 9.1 mg/dL (8.4-10.2); Creatinine 1 1.06 mg/dL (0.52-1.04); Total Protein 6.2 g/dL (6.3-8.2)
[2018-02-19] MEDS ORDERED: Phenergan 25 MG INJ ONE ×2 (06:58→07:40)
[2018-02-19] MEDS: Phenergan 25 MG INJ IM ONE (07:00)
[2018-02-19] MEDS ORDERED: TORAdol 30 mg Injection ONE (07:40)
[2018-02-19] MEDS: Phenergan 25 MG INJ IV ONE (07:50)
[2018-02-19] MEDS: TORAdol 30 mg Injection IV ONE (07:51)
--- NOTE | 2018-02-19 08:37 | XRAY ---
Indication: Right mid to lower quadrant abdominal pain. Nausea and diarrhea. History hepatitis B and pancreatitis. Multiple contiguous axial images obtained through the abdomen and pelvis using oral contrast only as ordered. Comparison: December 06, December 13, and January 01, 2018. Lung bases demonstrate stable pulmonary emphysema and scattered fibrosis/scarring. No infiltrate or effusion. Heart is not enlarged and demonstrates small pericardial effusion. Stable distal esophageal wall thickening again concerning for esophagitis. Contrasted stomach and bowel loops appear nonobstructed. There is now mild diffuse small and large bowel wall thickening favoring enterocolitis. Small pelvic free fluid presumed reactive. Appendix not seen today. No free air. Remaining liver, gallbladder, pancreas, spleen, adrenal glands, kidneys, ureters, bladder, and uterus appear unremarkable for noncontrast exam. There remains moderate aortoiliac calcifications without AAA. Osseous structures intact again with mild lumbar degenerative changes. Impression: 1. New finding mild diffuse small and large bowel wall thickening. Rule out enterocolitis. Small pelvic free fluid presumed reactive. 2. Stable distal esophageal wall thickening again favoring esophagitis. 3. Stable pulmonary emphysema and small pericardial effusion. CT DI 8.17
[2018-02-19 09:07] VITALS: O2SAT 99
[2018-02-19 09:14] LABS: Appearance CLEAR (CLEAR)
[2018-02-19 09:15] LABS: Bilirubin NEGATIVE (NEGATIVE); Blood NEGATIVE Ery/ul (0-5); Glucose 100 mg/dL (NEGATIVE); Ketones NEGATIVE (NEGATIVE); Leukocyte Esterase NEGATIVE (NEGATIVE); Nitrite NEGATIVE (NEGATIVE); Protein,Urine Dip NEGATIVE (Negative); Urobilinogen NORMAL mg/dL (0-1)
[2018-02-19 09:58] VITALS: BP 169/95; PULSE 71
== END 2018-02-19 09:58 | disposition home or self-care (01) ==
LOC: ED 05:07
DX: K52.9 Noninfective gastroenteritis and colitis, unspecified (principal); Z86.73 Personal history of transient ischemic attack (TIA), and cerebral infarction without residual deficits; F41.9 Anxiety disorder, unspecified; Z72.0 Tobacco use
CPT/HCPCS: 36000; 36415; 74176; 80053; 81002; 82150; 83605; 83690; 85025; 96360; 96372; 96374; 96375; 96376; 99285; J1885; J2270; J2405; J2550

== ENCOUNTER 2018-05-31 14:58 | Emergency (ER) | payer BC ==
--- NOTE | 2018-05-31 15:13 | ERPHSYRPT ---
- History of Present Illness Time Seen by Provider: 05/31/18 15:07 Historian: patient, family Exam Limitations: clinical condition Physician History: 62 y/o white female patient with h/o recurrent abd pain and pancreatitis. this episode began last night but sx worsened today. pt has n/v one to two times a month. pts last visit to an ED was approx 1 month ago. pt screaming and writhing in pain. this is typical presentation for this pt. pt has had several radiographic studies on this pt for same issue. Timing/Duration: yesterday Activities at Onset: none Quality: cramping, stabbing Abdominal Pain Onset Location: periumbilical Severity of Pain-Max: moderate Severity of Pain-Current: moderate Modifying Factors: Improves With: palpation, other (nothing helps) Associated Symptoms: loss of appetite, nausea, vomiting, No chest pain, No headache, No heartburn, No shortness of breath Previous symptoms: same symptoms as today Allergies/Adverse Reactions: No Known Drug Allergies Allergy (Verified 05/31/18 15:29) Home Medications: Albuterol Sulfate Mdi [Proair Hfa MDI] 1.25 mg NEB UD PRN 12/06/17 [ History] PANTOPRAZOLE 40 mg Tablet [Protonix 40MG Tablet] 40 mg PO DAILY 01/02/18 [ History] Nicotine 21 mg [Nicoderm CQ 21 MG] 21 mg TOP DAILY 01/09/18 [History] Hx Tetanus, Diphtheria Vaccination/Date Given: No Hx Influenza Vaccination/Date Given: No Hx Pneumococcal Vaccination/Date Given: No - Review of Systems Constitutional: No Symptoms, No Fever, No Chills Eyes: No Symptoms Ears, Nose, & Throat: No Symptoms, No Ear Pain, No Ear Discharge Respiratory: No Symptoms, No Cough, No Dyspnea, No Stridor, No Wheezing Cardiac: No Symptoms, No Chest Pain, No Palpitations, No Syncope Abdominal/Gastrointestinal: Abdominal Pain, Nausea, Vomiting, Appetite Changes, No Diarrhea, No Constipation Genitourinary Symptoms: No Symptoms, Dysuria, Frequency, Hematuria Musculoskeletal: No Symptoms, No Back Pain, No Neck Pain, No Deformity, No Fall , No Injury Skin: No Symptoms, No Rash, No Skin Lesions Neurological: No Symptoms Psychological: No Symptoms, Anxiety Endocrine: No Symptoms Hematologic/Lymphatic: No Symptoms Immunological/Allergic: No Symptoms - Past Medical History Pertinent Past Medical History: Yes Neurological History: Stroke ENT History: Cataracts Cardiac History: Aneurysm Respiratory History: Emphysema, Pneumonia Endocrine Medical History: No Pertinent History Musculoskeletal History: No Pertinent History GI Medical History: Pancreatitis, Other History: No Pertinent History Psycho-Social History: Anxiety, Depression Female Reproductive Disorders: No Pertinent History Other Medical History: Chronic Abdominal pain; Hepatitis B - Past Surgical History Past Surgical History: Yes Neuro Surgical History: Neurological Surgery Cardiac: No Pertinent History Respiratory: No Pertinent History Gastrointestinal: Other Genitourinary: No Pertinent History Musculoskeletal: No Pertinent History Female Surgical History: No Pertinent History Other Surgical History: Exploratory abdominal surgery - Social History Smoking Status: Current every day smoker How long have you smoked: 40 years Exposure to second hand smoke: No Drug Use: marijuana Patient Lives Alone: No - Nursing Vital Signs Nursing Vital Signs: Initial Vital Signs Temperature 97.5 F 05/31/18 15:06 Pulse Rate 86 05/31/18 15:06 Respiratory Rate 24 05/31/18 15:06 Blood Pressure 218/175 05/31/18 15:06 O2 Sat by Pulse Oximetry 100 05/31/18 15:06 Pain Scale Pain Intensity 4 - Physical Exam General Appearance: moderate distress, alert, anxiety, cachetic, thin, other ( pt writhing around in pain. 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 for pt.) Eye Exam: PERRL/EOMI, eyes nml inspection Ears, Nose, Throat Exam: normal ENT inspection, dry mucous membranes Neck Exam: normal inspection, non-tender, supple, full range of motion Respiratory Exam: normal breath sounds, lungs clear, airway intact, No chest tenderness, No respiratory distress, No accessory muscle use, No rhonchi, No wheezing, No stridor Cardiovascular Exam: regular rate/rhythm, normal heart sounds, No normal peripheral pulses Gastrointestinal/Abdomen Exam: soft, tenderness (diffuse), guarding, rebound Pelvic Exam: not done Rectal Exam: not done Back Exam: normal inspection, normal range of motion, No CVA tenderness, No vertebral tenderness Extremity Exam: normal inspection, normal range of motion, pelvis stable Neurologic Exam: alert, oriented x 3, cooperative, historian dramatic arts II-XII nml as tested Skin Exam: normal color, warm, dry Lymphatic Exam: No adenopathy SpO2 Interpretation: normal Oxygen Delivery: Room Air Ordered Tests: Active Orders 24 hr Category Date Time Status Clean Catch Urine Specimen STAT Care 05/31/18 15:14 Active IV Insertion STAT Care 05/31/18 15:14 Active NPO (ED) STAT Care 05/31/18 15:14 Active AMYLASE Stat Lab 05/31/18 15:31 Completed CBC W DIFF Stat Lab 05/31/18 15:31 Completed CMP Stat Lab 05/31/18 15:31 Completed LIPASE Stat Lab 05/31/18 15:31 Completed Lactic Acid Stat Lab 05/31/18 15:14 Completed UA W/ MICROSCOPIC Stat Lab 05/31/18 17:18 Completed Urine Triage Profile Stat Lab 05/31/18 17:18 Completed Medication Summary Generic Name Dose Route Start Last Admin Trade Name Freq PRN Reason Stop Dose Admin Hydralazine HCl 5 mg 05/31/18 17:05 05/31/18 17:53 Apresoline 20 Mg/Ml Inj IV 06/30/18 17:04 5 mg [id number] PRN Administration HYPERTENSION Discontinued Medications Generic Name Dose Route Start Last Admin Trade Name Freq PRN Reason Stop Dose Admin Hydromorphone HCl 0.5 mg 05/31/18 15:14 05/31/18 15:30 Hydromorphone 1 Mg/Ml Ampule IV 05/31/18 15:15 0.5 mg STAT ONE Administration Hydromorphone HCl Confirm 05/31/18 15:22 Hydromorphone 1 Mg/Ml Ampule Administered 05/31/18 15:23 Dose 1 mg .ROUTE .STK-MED ONE Sodium Chloride 1,000 mls @ 999 mls/hr 05/31/18 15:14 05/31/18 15:30 Sodium Chloride 0.9% 1000 Ml IV 05/31/18 16:14 999 mls/hr .Q1H1M STA Administration Sodium Chloride Confirm 05/31/18 15:22 Sodium Chloride 0.9% 1000 Ml Administered 05/31/18 15:23 Dose 1,000 mls @ ud .ROUTE .STK-MED ONE Metoprolol Tartrate 2.5 mg 05/31/18 16:19 05/31/18 16:27 Lopressor 5 Mg/5 Ml Injection IV 05/31/18 16:20 2.5 mg STAT ONE Administration Metoprolol Tartrate Confirm 05/31/18 16:26 Lopressor 5 Mg/5 Ml Injection Administered 05/31/18 16:27 Dose 5 mg IV .STK-MED ONE Metoprolol Tartrate 2.5 mg 05/31/18 16:51 05/31/18 16:53 Lopressor 5 Mg/5 Ml Injection IV 05/31/18 16:52 2.5 mg STAT ONE Administration Promethazine HCl 12.5 mg 05/31/18 15:14 05/31/18 15:30 Phenergan 25 Mg Inj IV 05/31/18 15:15 12.5 mg STAT ONE Administration Promethazine HCl Confirm 05/31/18 15:22 Phenergan 25 Mg Inj Administered 05/31/18 15:23 Dose 25 mg .ROUTE .STK-MED ONE Lab/Rad Data: Laboratory Result Diagrams 05/31/18 15:31 05/31/18 15:31 Laboratory Results 05/31/18 05/31/18 05/31/18 Range/Units 17:18 17:18 15:31 WBC (4.0-10.5) K/mm3 RBC (4.1-5.4) M/mm3 Hgb (12.0-16.0) gm/dl Hct (35-47) % MCV (78-100) fl MCH (26-32) pg MCHC (32-36) g/dl RDW (11.5-14.0) % Plt Count (150-450) K/mm3 MPV (6-9.5) fl Gran % (36.0-66.0) % Eos # (Auto) (0-0.5) Absolute Lymphs (auto) (1.0-4.6) Absolute Monos (auto) (0.0-1.3) Lymphocytes % (24.0-44.0) % Monocytes % (0.0-12.0) % Eosinophils % (0.00-5.0) % Basophils % (0.0-0.4) % Absolute Granulocytes (1.4-6.9) Basophils # (0-0.4) Sodium 136 L (137-145) mmol/L Potassium 4.0 (3.5-5.1) mmol/L Chloride 99 (98-107) mmol/L Carbon Dioxide 24 (22-30) mmol/L Anion Gap 16.7 H (5-15) MEQ/L BUN 13 (7-17) mg/dL Creatinine 0.92 (0.52-1.04) mg/dL Estimated GFR > 60.0 ML/MIN Glucose 143 H (74-106) mg/dL Lactic Acid (0.4-2.0) Calcium 9.7 (8.4-10.2) mg/dL Total Bilirubin 0.80 (0.2-1.3) mg/dL AST 21 (14-36) U/L ALT 17 (0-35) U/L Alkaline Phosphatase 103 (38-126) U/L Serum Total Protein 8.0 (6.3-8.2) g/dL Albumin 5.2 H (3.5-5.0) g/dL Amylase 123 H (30-110) U/L Lipase 88 (23-300) U/L Ur Collection Type CLEAN CATCH Urine Color LT.YELLOW (YELLOW) Urine Appearance CLEAR (CLEAR) Urine pH 8.0 (5-6) Ur Specific [place] 1.005 (1.005-1.025) Urine Protein 100 (Negative) Urine Ketones SMALL (NEGATIVE) Urine Blood 50 (0-5) Joel/ul Urine Nitrite NEGATIVE (NEGATIVE) Urine Bilirubin NEGATIVE (NEGATIVE) Urine Urobilinogen NORMAL (0-1) mg/dL Ur Leukocyte Esterase NEGATIVE (NEGATIVE) Urine Microscopic RBC 2-5 (0-2) /HPF Ur Epithelial Cells RARE (FEW) /HPF Urine Bacteria RARE (NEGATIVE) /HPF Urine Culture Reflexed NO (NO) Urine Glucose 100 (NEGATIVE) mg/dL Urine Opiates Level NEGATIVE (NEGATIVE) Ur Methadone NEGATIVE (NEGATIVE) Urine Barbiturates NEGATIVE (NEGATIVE) Ur Phencyclidine (PCP) NEGATIVE (NEGATIVE) Urine Amphetamine POSITIVE (NEGATIVE) U Benzodiazepine Level NEGATIVE (NEGATIVE) Urine Cocaine NEGATIVE (NEGATIVE) Urine Marijuana (THC) POSITIVE (NEGATIVE) 05/31/18 05/31/18 Range/Units 15:31 15:14 WBC 9.6 (4.0-10.5) K/mm3 RBC 4.75 (4.1-5.4) M/mm3 Hgb 14.4 (12.0-16.0) gm/dl Hct 41.9 (35-47) % MCV 88.2 (78-100) fl MCH 30.3 (26-32) pg MCHC 34.4 (32-36) g/dl RDW 15.5 H (11.5-14.0) % Plt Count 346 (150-450) K/mm3 MPV 10.6 H (6-9.5) fl Gran % 86.4 H (36.0-66.0) % Eos # (Auto) 0.04 (0-0.5) Absolute Lymphs (auto) 0.86 L (1.0-4.6) Absolute Monos (auto) 0.36 (0.0-1.3) Lymphocytes % 9.0 L (24.0-44.0) % Monocytes % 3.8 (0.0-12.0) % Eosinophils % 0.4 (0.00-5.0) % Basophils % 0.4 (0.0-0.4) % Absolute Granulocytes 8.28 H (1.4-6.9) Basophils # 0.04 (0-0.4) Sodium (137-145) mmol/L Potassium (3.5-5.1) mmol/L Chloride (98-107) mmol/L Carbon Dioxide (22-30) mmol/L Anion Gap (5-15) MEQ/L BUN (7-17) mg/dL Creatinine (0.52-1.04) mg/dL Estimated GFR ML/MIN Glucose (74-106) mg/dL Lactic Acid 1.1 (0.4-2.0) Calcium (8.4-10.2) mg/dL Total Bilirubin (0.2-1.3) mg/dL AST (14-36) U/L ALT (0-35) U/L Alkaline Phosphatase (38-126) U/L Serum Total Protein (6.3-8.2) g/dL Albumin (3.5-5.0) g/dL Amylase (30-110) U/L Lipase (23-300) U/L Ur Collection Type Urine Color (YELLOW) Urine Appearance (CLEAR) Urine pH (5-6) Ur Specific [place] (1.005-1.025) Urine Protein (Negative) Urine Ketones (NEGATIVE) Urine Blood (0-5) Joel/ul Urine Nitrite (NEGATIVE) Urine Bilirubin (NEGATIVE) Urine Urobilinogen (0-1) mg/dL Ur Leukocyte Esterase (NEGATIVE) Urine Microscopic RBC (0-2) /HPF Ur Epithelial Cells (FEW) /HPF Urine Bacteria (NEGATIVE) /HPF Urine Culture Reflexed (NO) Urine Glucose (NEGATIVE) mg/dL Urine Opiates Level (NEGATIVE) Ur Methadone (NEGATIVE) Urine Barbiturates (NEGATIVE) Ur Phencyclidine (PCP) (NEGATIVE) Urine Amphetamine (NEGATIVE) U Benzodiazepine Level (NEGATIVE) Urine Cocaine (NEGATIVE) Urine Marijuana (THC) (NEGATIVE) - Progress Progress: improved, re-examined Progress Note: 05/31/18 16:09 pts pain has completely resolved. she is asleep. re examination shows a soft flat abd with good sounds. no tenderness. pts temp normal, wbc nl, nl lipase only sl elevated amylase. most recent ct scan abd negative for pancreatitis. had d/w pts sig other. i voiced my concern of too much radiation exposure. he has opted for no xrays at this time. 05/31/18 16:16 pt has had four ct scan abd/pelvis at this hospital since 12/06/17. she has had other xrays performed as well. 05/31/18 17:58 pts abd pain has resolved. however, i kept pt here for tx of htn. now pts bp is improving. will send pt home for further management of her htn by her pcp. Counseled pt/family regarding: lab results, diagnosis, need for follow-up - Departure Time of Disposition: 18:00 Departure Disposition: Home Clinical Impression: Hypertension, Chronic abdominal pain Condition: Stable Critical Care Time: Yes Critical Care Time(excluding separately billable procedures): 30-74 minutes Referrals: JORDAN ROBLEDO [Primary Care Provider] - Additional Instructions: follow up with primary doctor for further management of your high blood pressure and your chronic abdominal pain.
[2018-05-31] MEDS ORDERED: Hydromorphone 1 mg/ml Ampule IV ONE (15:14)
[2018-05-31] MEDS ORDERED: Phenergan 25 MG INJ IV ONE (15:14)
[2018-05-31] MEDS ORDERED: Sodium Chloride 0.9% 1000 ML 1,000 ML IV STA (15:14)
[2018-05-31] MEDS ORDERED: Phenergan 25 MG INJ ONE (15:22)
[2018-05-31] MEDS ORDERED: Sodium Chloride 0.9% 1000 ML 1,000 ML ONE (15:22)
[2018-05-31] MEDS ORDERED: Hydromorphone 1 mg/ml Ampule ONE (15:22)
[2018-05-31 15:35] LABS: BASOPHIL % 0.4 % (0.0-0.4); Basophil (Absolute #) 0.04 (0-0.4); Eosinophil % 0.4 % (0.00-5.0); Eosinophil (Absolute #) 0.04 (0-0.5); Granulocyte Absolute (ANC) 8.28 (1.4-6.9); Granulocytes % 86.4 % (36.0-66.0); Hematocrit 41.9 % (35-47); Hemoglobin 14.4 gm/dl (12.0-16.0); Lymphocyte (Absolute #) 0.86 (1.0-4.6); Mean Cell Volume 88.2 fl (78-100); Mean Corpuscular Hemoglobin 30.3 pg (26-32); Mean Corpuscular Hgb Concent. 34.4 g/dl (32-36); Mean Platelet Volume 10.6 fl (6-9.5); Monocyte (Absolute #) 0.36 (0.0-1.3); Monocytes % 3.8 % (0.0-12.0); Platelet Count 346 K/mm3 (150-450); Red Blood Count 4.75 M/mm3 (4.1-5.4); Red Cell Distribution Width 15.5 % (11.5-14.0); White Blood Count 9.6 K/mm3 (4.0-10.5)
[2018-05-31 15:53] LABS: ALBUMIN 5.2 g/dL (3.5-5.0); ALKALINE PHOSPHATASE 103 U/L (38-126); AMYLASE 123 U/L (30-110); ANION GAP 16.7 MEQ/L (5-15); BLOOD UREA NITROGEN 13 mg/dL (7-17); CHLORIDE 99 mmol/L (98-107); Calcium 9.7 mg/dL (8.4-10.2); Carbon Dioxide 24 mmol/L (22-30); Creatinine 1 0.92 mg/dL (0.52-1.04); Glucose 143 mg/dL (74-106); LIPASE 88 U/L (23-300); SGOT/AST 21 U/L (14-36); SGPT/ALT 17 U/L (0-35); SODIUM 136 mmol/L (137-145)
[2018-05-31] MEDS ORDERED: LOPRESSOR 5 MG/5 ML INJECTION IV ONE ×3 (16:19→16:51)
[2018-05-31] MEDS: APRESOLINE 20 MG/ML INJ IV PRN ×3 (17:09→17:53)
[2018-05-31] MEDS ORDERED: APRESOLINE 20 MG/ML INJ ONE ×2 (17:09→18:37)
[2018-05-31 17:29] LABS: Appearance CLEAR (CLEAR); Bilirubin NEGATIVE (NEGATIVE); Blood 50 Ery/ul (0-5); Glucose 100 mg/dL (NEGATIVE); Ketones SMALL (NEGATIVE); Leukocyte Esterase NEGATIVE (NEGATIVE); Nitrite NEGATIVE (NEGATIVE); Protein,Urine Dip 100 (Negative); Specific Gravity 1.005 (1.005-1.025); Urobilinogen NORMAL mg/dL (0-1)
[2018-05-31 17:30] LABS: Bacteria RARE /HPF (NEGATIVE); Epithelial Cells RARE /HPF (FEW)
[2018-05-31 17:38] LABS: Amphetamine,Urine POSITIVE (NEGATIVE); Barbiturate,Urine NEGATIVE (NEGATIVE); Benzodiazepine,Urine NEGATIVE (NEGATIVE); Cocaine,Urine NEGATIVE (NEGATIVE); Methadone,Urine NEGATIVE (NEGATIVE); Opiate,Urine NEGATIVE (NEGATIVE); PCP,Urine NEGATIVE (NEGATIVE); THC,Urine POSITIVE (NEGATIVE)
[2018-05-31] MEDS ORDERED: APRESOLINE 20 MG/ML INJ IV ONE (18:32)
[2018-05-31 18:52] VITALS: BP 187/99; PULSE 74; O2SAT 96
== END 2018-05-31 18:58 | disposition home or self-care (01) ==
LOC: ED 14:58
DX: R10.33 Periumbilical pain (principal); I10 Essential (primary) hypertension; Z79.899 Other long term (current) drug therapy
CPT/HCPCS: 36000; 36415; 80053; 80307; 81000; 82150; 83605; 83690; 85025; 96360; 96361; 96374; 96375; 96376; 99284; J0360; J1170; J2550

== ENCOUNTER 2018-10-10 19:08 | Emergency (ER) | payer BC ==
[2018-10-10] MEDS ORDERED: Sodium Chloride 0.9% 1000 ML 1,000 ML IV STA ×2 (19:44→22:23)
[2018-10-10] MEDS ORDERED: Sodium Chloride 0.9% 1000 ML 1,000 ML ONE ×2 (19:51→22:23)
[2018-10-10] MEDS ORDERED: PROTONIX 40 MG IV IV ONE ×2 (19:53→19:57)
[2018-10-10] MEDS ORDERED: GI COCKTAIL 45 ML (Maalox/Lidocaine) PO ONE (19:53)
[2018-10-10] MEDS ORDERED: XYLOCAINE HCl Viscous ONE (19:58)
[2018-10-10] MEDS ORDERED: MAALOX ES 30 ML UNIT DOSE ONE (19:58)
[2018-10-10 20:06] LABS: BASOPHIL % 0.3 % (0.0-0.4); Basophil (Absolute #) 0.05 (0-0.4); Eosinophil % 0.1 % (0.00-5.0); Eosinophil (Absolute #) 0.01 (0-0.5); Granulocyte Absolute (ANC) 12.71 (1.4-6.9); Hematocrit 39.3 % (35-47); Hemoglobin 13.1 gm/dl (12.0-16.0); Lymphocyte (Absolute #) 1.29 (1.0-4.6); Lymphocytes % 8.5 % (24.0-44.0); Mean Cell Volume 88.9 fl (78-100); Mean Corpuscular Hemoglobin 29.6 pg (26-32); Mean Corpuscular Hgb Concent. 33.3 g/dl (32-36); Mean Platelet Volume 9.8 fl (6-9.5); Monocyte (Absolute #) 1.08 (0.0-1.3); Monocytes % 7.1 % (0.0-12.0); Platelet Count 378 K/mm3 (150-450); Red Blood Count 4.42 M/mm3 (4.1-5.4); Red Cell Distribution Width 15.4 % (11.5-14.0); White Blood Count 15.1 K/mm3 (4.0-10.5)
[2018-10-10 20:27] LABS: ALBUMIN 4.8 g/dL (3.5-5.0); ANION GAP 19.4 MEQ/L (5-15); BILIRUBIN,TOTAL 0.8 mg/dL (0.2-1.3); Calcium 10.1 mg/dL (8.4-10.2); Creatinine 1 1.39 mg/dL (0.52-1.04); Potassium 4.1 mmol/L (3.5-5.1); Total Protein 7.8 g/dL (6.3-8.2)
[2018-10-10] MEDS ORDERED: MORPHINE SULFATE 2 MG INJ IV ONE (20:35)
[2018-10-10] MEDS ORDERED: MORPHINE SULFATE 2 MG INJ ONE (20:37)
[2018-10-10] MEDS ORDERED: Zofran 4 MG/2 ML VIAL IV ONE (20:42)
[2018-10-10] MEDS ORDERED: Zofran 4 MG/2 ML VIAL ONE (20:44)
[2018-10-10 20:53] LABS: Appearance CLOUDY (CLEAR); Bacteria RARE /HPF (NEGATIVE); Bilirubin NEGATIVE (NEGATIVE); Blood SMALL Ery/ul (0-5); Glucose 50 mg/dL (NEGATIVE); Hyaline Casts 0-2 /LPF (0-2); Ketones TRACE (NEGATIVE); Leukocyte Esterase NEGATIVE (NEGATIVE); Mucus SLIGHT /HPF (NEGATIVE); Nitrite NEGATIVE (NEGATIVE); Protein,Urine Dip >=500 (Negative); Specific Gravity 1.022 (1.005-1.025); Urobilinogen 2 mg/dL (0-1)
[2018-10-10] MEDS ORDERED: APRESOLINE 20 MG/ML INJ IV ONE (22:22)
[2018-10-10] MEDS ORDERED: APRESOLINE 20 MG/ML INJ ONE (22:24)
[2018-10-10 23:47] LABS: BASOPHIL % 0.3 % (0.0-0.4); Basophil (Absolute #) 0.05 (0-0.4); Eosinophil % 0.1 % (0.00-5.0); Eosinophil (Absolute #) 0.01 (0-0.5); Granulocyte Absolute (ANC) 12.47 (1.4-6.9); Granulocytes % 83.7 % (36.0-66.0); Hematocrit 36.4 % (35-47); Hemoglobin 11.8 gm/dl (12.0-16.0); Lymphocyte (Absolute #) 1.23 (1.0-4.6); Lymphocytes % 8.2 % (24.0-44.0); Mean Cell Volume 90.3 fl (78-100); Mean Corpuscular Hgb Concent. 32.4 g/dl (32-36); Mean Platelet Volume 10.6 fl (6-9.5); Monocyte (Absolute #) 1.15 (0.0-1.3); Monocytes % 7.7 % (0.0-12.0); Platelet Count 318 K/mm3 (150-450); Red Blood Count 4.03 M/mm3 (4.1-5.4); Red Cell Distribution Width 15.4 % (11.5-14.0); White Blood Count 14.9 K/mm3 (4.0-10.5)
[2018-10-10 23:48] LABS: Mean Corpuscular Hemoglobin 29.2 pg (26-32)
[2018-10-11 00:06] LABS: ALBUMIN 4.2 g/dL (3.5-5.0); ANION GAP 14.5 MEQ/L (5-15); BILIRUBIN,TOTAL 0.8 mg/dL (0.2-1.3); Calcium 8.8 mg/dL (8.4-10.2); Creatinine 1 1.16 mg/dL (0.52-1.04); Potassium 3.8 mmol/L (3.5-5.1)
--- NOTE | 2018-10-11 00:50 | ERPHSYRPT ---
- History of Present Illness Historian: patient Exam Limitations: no limitations Patient Subjective Stated Complaint: Abdominal pain Triage Nursing Assessment: Patient brought back to ED via w/c and transferred to bed asssit of 2. Patient crying in pain. Patient states abdominal pain is 10/ 10 constant burning/stabbing pain. Patient's states she has hx of pancreatitis and it feels like it now. Patient states she is having N/V. Abdomen soft and flat with BS X 4. Physician History: Pt is a 62 y/o female with a h/o pancreatitis, presented to the ED with complains of diffuse abdominal pain. Pt states has N/V. No diarrhea. Pt states, has no F/C/S. No SOB or cough. Timing/Duration: today Activities at Onset: none Quality: burning, sharpness Abdominal Pain Onset Location: generalized abdomen Pain Radiation: no radiation Severity of Pain-Max: moderate Severity of Pain-Current: mild Modifying Factors: Improves With: analgesics Associated Symptoms: heartburn, loss of appetite, nausea, vomiting Previous symptoms: same symptoms as today Allergies/Adverse Reactions: No Known Drug Allergies Allergy (Verified 10/10/18 19:15) Home Medications: PANTOPRAZOLE 40 mg Tablet [Protonix 40MG Tablet] 40 mg PO DAILY 01/02/18 [ History] Hx Tetanus, Diphtheria Vaccination/Date Given: No Hx Influenza Vaccination/Date Given: No Hx Pneumococcal Vaccination/Date Given: No Immunizations Up to Date: Yes - Review of Systems Constitutional: No Fever, No Chills Respiratory: No Cough, No Dyspnea Cardiac: No Chest Pain, No Edema, No Syncope Abdominal/Gastrointestinal: Abdominal Pain, Nausea, Vomiting Genitourinary Symptoms: No Dysuria Musculoskeletal: No Back Pain, No Neck Pain - Past Medical History Pertinent Past Medical History: Yes Neurological History: Stroke ENT History: Cataracts Cardiac History: Aneurysm Respiratory History: Emphysema, Pneumonia Endocrine Medical History: No Pertinent History Musculoskeletal History: No Pertinent History GI Medical History: Pancreatitis, Other History: No Pertinent History Psycho-Social History: Anxiety, Depression Female Reproductive Disorders: No Pertinent History Other Medical History: Chronic Abdominal pain; Hepatitis B - Past Surgical History Past Surgical History: Yes Neuro Surgical History: Neurological Surgery Cardiac: No Pertinent History Respiratory: No Pertinent History Gastrointestinal: Other Genitourinary: No Pertinent History Musculoskeletal: No Pertinent History Female Surgical History: No Pertinent History Other Surgical History: Exploratory abdominal surgery - Social History Smoking Status: Current every day smoker How long have you smoked: 40 years Exposure to second hand smoke: Yes Drug Use: marijuana Patient Lives Alone: No - Female History Hx Last Menstrual Period: menopausal Hx Now: No - Nursing Vital Signs Nursing Vital Signs: Initial Vital Signs Temperature 98.1 F 10/10/18 19:16 Pulse Rate 112 H 10/10/18 19:16 Respiratory Rate 22 10/10/18 19:16 Blood Pressure 161/134 10/10/18 19:16 O2 Sat by Pulse Oximetry 98 10/10/18 19:16 Pain Scale Pain Intensity 7 - Physical Exam General Appearance: moderate distress, cachetic Eye Exam: PERRL/EOMI, eyes nml inspection Ears, Nose, Throat Exam: normal ENT inspection, pharynx normal, dry mucous membranes Respiratory Exam: normal breath sounds, lungs clear, No respiratory distress Cardiovascular Exam: regular rate/rhythm, normal heart sounds Gastrointestinal/Abdomen Exam: tenderness Extremity Exam: normal inspection, normal range of motion, pelvis stable Neurologic Exam: alert, oriented x 3, cooperative, normal mood/affect, nml cerebellar function, sensation nml, No motor deficits SpO2: 98 - Course Nursing assessment & vital signs reviewed: Yes - CT Exams Abdomen/Pelvis CT Interpretation: Negative (Wall thickening in the distal esophagus, and gastric fundus and body. Can not r/o gasteritis, esophagitis and gastric neoplasm) Ordered Tests: Active Orders 24 hr Category Date Time Status Clean Catch Urine Specimen STAT Care 10/10/18 19:54 Active IV Insertion STAT Care 10/10/18 19:44 Active ABDOMEN AND PELVIS W/0 CONTRAS [CT] Stat Exams 10/10/18 19:45 Taken AMYLASE Stat Lab 10/10/18 20:03 Completed CBC W DIFF Stat Lab 10/10/18 20:03 Completed CBC W DIFF Stat Lab 10/10/18 23:46 Completed CMP Stat Lab 10/10/18 20:03 Completed CMP Stat Lab 10/10/18 23:46 Completed LIPASE Stat Lab 10/10/18 20:03 Completed LIPASE Stat Lab 10/10/18 23:46 Completed Lactic Acid Stat Lab 10/10/18 20:00 Completed UA W/RFX UR CULTURE Stat Lab 10/10/18 20:20 Completed Urine Triage Profile Stat Lab 10/10/18 20:20 Received Medication Summary Discontinued Medications Generic Name Dose Route Start Last Admin Trade Name Kandy PRN Reason Stop Dose Admin Al Hydrox/Mg Hydrox/Simethicone Confirm 10/10/18 19:58 Maalox Es 30 Ml Unit Dose Administered 10/10/18 19:59 Dose 30 ml .ROUTE .STK-MED ONE Hydralazine HCl 20 mg 10/10/18 22:22 10/10/18 22:25 Apresoline 20 Mg/Ml Inj IV 10/10/18 22:23 20 mg STAT ONE Administration Hydralazine HCl Confirm 10/10/18 22:24 Apresoline 20 Mg/Ml Inj Administered 10/10/18 22:25 Dose 20 mg .ROUTE .STK-MED ONE Sodium Chloride 1,000 mls @ 999 mls/hr 10/10/18 19:44 10/10/18 22:58 Sodium Chloride 0.9% 1000 Ml IV 10/10/18 20:44 Infused .Q1H1M STA Infusion Sodium Chloride Confirm 10/10/18 19:51 Sodium Chloride 0.9% 1000 Ml Administered 10/10/18 19:52 Dose 1,000 mls @ ud .ROUTE .STK-MED ONE Sodium Chloride 1,000 mls @ 999 mls/hr 10/10/18 22:23 10/10/18 22:56 Sodium Chloride 0.9% 1000 Ml IV 10/10/18 23:23 Infused .Q1H1M STA Infusion Sodium Chloride Confirm 10/10/18 22:23 Sodium Chloride 0.9% 1000 Ml Administered 10/10/18 22:24 Dose 1,000 mls @ ud .ROUTE .STK-MED ONE Lidocaine HCl Confirm 10/10/18 19:58 Xylocaine Hcl Viscous * Administered 10/10/18 19:59 Dose 15 ml .ROUTE .STK-MED ONE Magnesium Hydroxide 45 ml 10/10/18 19:53 10/10/18 20:01 Gi Cocktail 45 Ml (Maalox/Lidocaine) PO 10/10/18 19:54 45 ml STAT ONE Administration Morphine Sulfate 2 mg 10/10/18 20:35 10/10/18 20:37 Morphine Sulfate 2 Mg Inj IV 10/10/18 20:36 2 mg STAT ONE Administration Morphine Sulfate Confirm 10/10/18 20:37 Morphine Sulfate 2 Mg Inj Administered 10/10/18 20:38 Dose 2 mg .ROUTE .STK-MED ONE Ondansetron HCl 4 mg 10/10/18 20:42 10/10/18 20:45 Zofran 4 Mg/2 Ml Vial IV 10/10/18 20:43 4 mg STAT ONE Administration Ondansetron HCl Confirm 10/10/18 20:44 Zofran 4 Mg/2 Ml Vial Administered 10/10/18 20:45 Dose 4 mg .ROUTE .STK-MED ONE Pantoprazole Sodium 40 mg 10/10/18 19:53 10/10/18 20:01 Protonix 40 Mg Iv IV 10/10/18 19:54 40 mg STAT ONE Administration Pantoprazole Sodium Confirm 10/10/18 19:57 Protonix 40 Mg Iv Administered 10/10/18 19:58 Dose 40 mg IV .STK-MED ONE Lab/Rad Data: Laboratory Result Diagrams 10/10/18 23:46 10/10/18 23:46 Laboratory Results 10/10/18 10/10/18 10/10/18 Range/Units 23:46 23:46 20:20 WBC 14.9 H (4.0-10.5) K/mm3 RBC 4.03 L (4.1-5.4) M/mm3 Hgb 11.8 L (12.0-16.0) gm/dl Hct 36.4 (35-47) % MCV 90.3 (78-100) fl MCH 29.2 (26-32) pg MCHC 32.4 (32-36) g/dl RDW 15.4 H (11.5-14.0) % Plt Count 318 (150-450) K/mm3 MPV 10.6 H (6-9.5) fl Gran % 83.7 H (36.0-66.0) % Eos # (Auto) 0.01 (0-0.5) Absolute Lymphs (auto) 1.23 (1.0-4.6) Absolute Monos (auto) 1.15 (0.0-1.3) Lymphocytes % 8.2 L (24.0-44.0) % Monocytes % 7.7 (0.0-12.0) % Eosinophils % 0.1 (0.00-5.0) % Basophils % 0.3 (0.0-0.4) % Absolute Granulocytes 12.47 H (1.4-6.9) Basophils # 0.05 (0-0.4) Sodium 138 (137-145) mmol/L Potassium 3.8 (3.5-5.1) mmol/L Chloride 103 (98-107) mmol/L Carbon Dioxide 25 (22-30) mmol/L Anion Gap 14.5 (5-15) MEQ/L BUN 31 H (7-17) mg/dL Creatinine 1.16 H (0.52-1.04) mg/dL Estimated GFR 50.6 ML/MIN Glucose 131 H (74-106) mg/dL Lactic Acid (0.4-2.0) Calcium 8.8 (8.4-10.2) mg/dL Total Bilirubin 0.80 (0.2-1.3) mg/dL AST 29 (14-36) U/L ALT 16 (0-35) U/L Alkaline Phosphatase 91 (38-126) U/L Serum Total Protein 7.0 (6.3-8.2) g/dL Albumin 4.2 (3.5-5.0) g/dL Amylase (30-110) U/L Lipase 207 (23-300) U/L Urine Color LUCAS (YELLOW) Urine Appearance CLOUDY (CLEAR) Urine pH 5.0 (5-6) Ur Specific [place] 1.022 (1.005-1.025) Urine Protein >=500 (Negative) Urine Ketones TRACE (NEGATIVE) Urine Blood SMALL (0-5) Joel/ul Urine Nitrite NEGATIVE (NEGATIVE) Urine Bilirubin NEGATIVE (NEGATIVE) Urine Urobilinogen 2 (0-1) mg/dL Ur Leukocyte Esterase NEGATIVE (NEGATIVE) Urine WBC (Auto) 3-5 (0-5) /HPF Urine RBC (Auto) 3-5 (0-2) /HPF U Hyaline Cast (Auto) 0-2 (0-2) /LPF U Epithel Cells (Auto) NONE (FEW) /HPF Urine Bacteria (Auto) RARE (NEGATIVE) /HPF Urine Mucus (Auto) SLIGHT (NEGATIVE) /HPF Urine Culture Reflexed NO (NO) Urine Glucose 50 (NEGATIVE) mg/dL 10/10/18 10/10/18 10/10/18 Range/Units 20:03 20:03 20:00 WBC 15.1 H (4.0-10.5) K/mm3 RBC 4.42 (4.1-5.4) M/mm3 Hgb 13.1 (12.0-16.0) gm/dl Hct 39.3 (35-47) % MCV 88.9 (78-100) fl MCH 29.6 (26-32) pg MCHC 33.3 (32-36) g/dl RDW 15.4 H (11.5-14.0) % Plt Count 378 (150-450) K/mm3 MPV 9.8 H (6-9.5) fl Gran % 84.0 H (36.0-66.0) % Eos # (Auto) 0.01 (0-0.5) Absolute Lymphs (auto) 1.29 (1.0-4.6) Absolute Monos (auto) 1.08 (0.0-1.3) Lymphocytes % 8.5 L (24.0-44.0) % Monocytes % 7.1 (0.0-12.0) % Eosinophils % 0.1 (0.00-5.0) % Basophils % 0.3 (0.0-0.4) % Absolute Granulocytes 12.71 H (1.4-6.9) Basophils # 0.05 (0-0.4) Sodium 137 (137-145) mmol/L Potassium 4.1 (3.5-5.1) mmol/L Chloride 96 L (98-107) mmol/L Carbon Dioxide 26 (22-30) mmol/L Anion Gap 19.4 H (5-15) MEQ/L BUN 31 H (7-17) mg/dL Creatinine 1.39 H (0.52-1.04) mg/dL Estimated GFR 41.1 ML/MIN Glucose 120 H (74-106) mg/dL Lactic Acid 1.3 (0.4-2.0) Calcium 10.1 (8.4-10.2) mg/dL Total Bilirubin 0.80 (0.2-1.3) mg/dL AST 22 (14-36) U/L ALT 17 (0-35) U/L Alkaline Phosphatase 121 (38-126) U/L Serum Total Protein 7.8 (6.3-8.2) g/dL Albumin 4.8 (3.5-5.0) g/dL Amylase 177 H (30-110) U/L Lipase 583 H (23-300) U/L Urine Color (YELLOW) Urine Appearance (CLEAR) Urine pH (5-6) Ur Specific [place] (1.005-1.025) Urine Protein (Negative) Urine Ketones (NEGATIVE) Urine Blood (0-5) Joel/ul Urine Nitrite (NEGATIVE) Urine Bilirubin (NEGATIVE) Urine Urobilinogen (0-1) mg/dL Ur Leukocyte Esterase (NEGATIVE) Urine WBC (Auto) (0-5) /HPF Urine RBC (Auto) (0-2) /HPF U Hyaline Cast (Auto) (0-2) /LPF U Epithel Cells (Auto) (FEW) /HPF Urine Bacteria (Auto) (NEGATIVE) /HPF Urine Mucus (Auto) (NEGATIVE) /HPF Urine Culture Reflexed (NO) Urine Glucose (NEGATIVE) mg/dL - Progress Progress: improved Progress Note: Pt was dehydrated on presentation with elevated sCr, leukocytosis, and elevated Lipase. She was hydrated with 2 lit NS. Morphine was given, as well as Hydralazine IV. CT of abdomen pelvis was negative for pancreatitis or colitis. Pt was given GI cocktail, Protonix and Zofran in the ED. Repeat labs are much improved, but pt has still Leukocytosis, maybe secondary to gastritis. I explained to the pt that she has to f/u with GI for an EGD as out pt, and r/o gastric neoplasm. Pt should continue using PPIs, as she was prescribed those in the past. I advised pt to start diet with clear liquids and slowly advance her diet, to avoid discomfort. 10/11/18 00:50 Will see patient in: office Counseled pt/family regarding: lab results, need for follow-up, rad results - Departure Time of Disposition: 00:54 Departure Disposition: Home Clinical Impression: Abdominal pain, Chronic abdominal pain Condition: Stable Critical Care Time: No Referrals: JORDAN ROBLEDO [Primary Care Provider] - Additional Instructions: F/U with PCP and GI.
[2018-10-11 00:58] VITALS: BP 128/78; PULSE 98; O2SAT 94
--- NOTE | 2018-10-11 09:11 | XRAY ---
Indication: Abdomen pain. Multiple contiguous axial images obtained through the abdomen and pelvis using oral contrast only as ordered. Comparison: February 19, 2018. Lung bases again demonstrates pulmonary emphysema with mild fibrosis/scarring. No infiltrate or effusion. Heart is not enlarged. Stable distal esophageal circumferential wall thickening, again possible esophagitis. Enteric contrast predominantly in the stomach. Fundal portion of the stomach demonstrates mild wall thickening, possible incomplete distention. Gastritis or mass not completely excluded. Noncontrasted bowel loops appear nonobstructed. Normal appendix. No free fluid/air. Remaining liver, gallbladder, pancreas, spleen, adrenal glands, kidneys, ureters, bladder, and uterus appear grossly unremarkable for noncontrast exam. Stable moderate aortoiliac calcifications without AAA. Osseous structures intact again with mild lumbar degenerative changes. No ventral or inguinal hernias. Impression: 1. Stable distal esophageal wall thickening. Wall thickening also seen of the fundal portion of the stomach. Rule out gastroesophagitis. Mass/malignancy not completely excluded. 2. Stable pulmonary emphysema. 3. Remaining CT abdomen/pelvis without contrast exam is negative. Comment: Preliminary interpretation was made by [facility]. No discrepancy. CT DI 8.07
== END 2018-10-11 01:08 | disposition home or self-care (01) ==
LOC: ED 19:08
DX: R10.9 Unspecified abdominal pain (principal); G89.29 Other chronic pain; F32.9 Major depressive disorder, single episode, unspecified; F41.9 Anxiety disorder, unspecified; B19.10 Unspecified viral hepatitis B without hepatic coma
CPT/HCPCS: 36000; 36415; 74176; 80053; 80307; 81001; 82150; 83605; 83690; 85025; 96360; 96361; 96374; 96375; 99285; J0360; J2270; J2405; A9270-GY

== ENCOUNTER 2023-09-18 17:38 | Emergency (ER) | payer BC ==
[2023-09-18] MEDS ORDERED: Zofran 4 MG/2 ML VIAL IV ONE (17:59)
[2023-09-18] MEDS ORDERED: MORPHINE SULFATE 2 MG INJ IV ONE (17:59)
[2023-09-18] MEDS ORDERED: Sodium Chloride 0.9% 1000 ML 1,000 ML IV SCH (18:00)
--- NOTE | 2023-09-18 18:07 | ERPHSYRPT ---
- History of Present Illness Time Seen by Provider: 09/18/23 18:00 Historian: patient Exam Limitations: no limitations Patient Subjective Stated Complaint: pt c/o of RLQ abdominal pain Triage Nursing Assessment: Pt brought to the ER by her , hypertensive, rates pain as 10/10, pt is crying in the bed, pt states that she has hepatitis B and has chronic abdominal pain, pulses normal, skin jaundiced, no difficulties breathing, she appears to be hyperventalating Physician History: Patient is a 67-year-old female history of hepatitis B and chronic abdominal pain presents to our ED for evaluation of right lower quadrant pain that started late this morning. Pain described as an ache localized. No radiation. Pain worse with movement and palpation pain improved with rest. No trauma no fever. No urinary symptomology. No back pain. No chest pain or shortness of breath. No nausea vomiting or diaphoresis. Symptoms are constant. Symptoms are moderate in intensity. Patient otherwise feels well. She voices no other complaints or concerns at this time. Portions of this note were created with voice recognition technology. There may be grammatical, spelling, punctuation or sound alike errors Timing/Duration: today Activities at Onset: none Quality: aching Abdominal Pain Onset Location: RLQ Pain Radiation: no radiation Severity of Pain-Max: moderate Severity of Pain-Current: mild Modifying Factors: Improves With: palpation Associated Symptoms: nausea, vomiting Previous symptoms: no prior history Allergies/Adverse Reactions: No Known Drug Allergies Allergy (Verified 09/18/23 18:04) Home Medications: Amlodipine Besylate 10 mg PO DAILY 09/18/23 [History] Aspirin EC 81 mg [Ecotrin 81 mg] 81 mg PO DAILY 09/18/23 [History] Atorvastatin Calcium 40 mg PO DAILY 09/18/23 [History] Fluticasone/Umeclidin/Vilanter [Trelegy Ellipta 100-62.5-25] 1 inh PO UD 09/18/23 [History] Hydralazine HCl 50 mg PO QID 09/18/23 [History] Metoprolol Succinate 25 mg Xl* [Toprol-Xl 25MG Tablets] 25 mg PO DAILY 09/18/23 [History] Hx Tetanus, Diphtheria Vaccination/Date Given: No Hx Influenza Vaccination/Date Given: Yes Hx Pneumococcal Vaccination/Date Given: No Travel Risk - International Travel Have you traveled outside of the country in past 3 weeks: No - Coronavirus Screening Are you exhibiting any of the following symptoms?: No Close contact with a COVID-19 positive Pt in past 14-21 Days: No - Vaccine Status Have you recieved a Covid-19 vaccination: No - Review of Systems Constitutional: No Symptoms, No Fever, No Chills Eyes: No Symptoms Ears, Nose, & Throat: No Symptoms Respiratory: No Symptoms, No Cough, No Dyspnea Cardiac: No Symptoms, No Chest Pain, No Edema, No Syncope Abdominal/Gastrointestinal: No Symptoms, No Abdominal Pain, No Nausea, No Vomiting, No Diarrhea Genitourinary Symptoms: No Symptoms, No Dysuria Musculoskeletal: No Symptoms, No Back Pain, No Neck Pain Skin: No Symptoms, No Rash Neurological: No Symptoms, No Dizziness, No Focal Weakness, No Sensory Changes Psychological: No Symptoms Endocrine: No Symptoms Hematologic/Lymphatic: No Symptoms Immunological/Allergic: No Symptoms All Other Systems: Reviewed and Negative - Past Medical History Pertinent Past Medical History: Yes Neurological History: Stroke ENT History: Cataracts Cardiac History: Aneurysm Respiratory History: Emphysema, Pneumonia Endocrine Medical History: No Pertinent History Musculoskeletal History: No Pertinent History GI Medical History: Pancreatitis, Other History: No Pertinent History Psycho-Social History: Anxiety, Depression Female Reproductive Disorders: No Pertinent History Other Medical History: Chronic Abdominal pain; Hepatitis B - Past Surgical History Past Surgical History: Yes Neuro Surgical History: Neurological Surgery Cardiac: No Pertinent History Respiratory: No Pertinent History Gastrointestinal: Other Genitourinary: No Pertinent History Musculoskeletal: No Pertinent History Female Surgical History: No Pertinent History Other Surgical History: Exploratory abdominal surgery - Social History Smoking Status: Current every day smoker How long have you smoked: 40 years Exposure to second hand smoke: Yes Drug Use: marijuana Patient Lives Alone: No - Nursing Vital Signs Nursing Vital Signs: Initial Vital Signs Temperature 98.5 F 09/18/23 17:53 Pulse Rate 77 09/18/23 17:53 Blood Pressure 219/131 09/18/23 17:53 O2 Sat by Pulse Oximetry 100 09/18/23 17:53 Pain Scale Pain Intensity 8 - Physical Exam General Appearance: no apparent distress, alert Eye Exam: PERRL/EOMI, eyes nml inspection Ears, Nose, Throat Exam: normal ENT inspection, pharynx normal, moist mucous membranes Neck Exam: normal inspection, non-tender, supple, full range of motion Respiratory Exam: normal breath sounds, lungs clear, airway intact, No respiratory distress Cardiovascular Exam: regular rate/rhythm, normal heart sounds Gastrointestinal/Abdomen Exam: soft, other (Right lower quadrant tenderness.Overlying soft tissue intact. No signs of trauma), No tenderness, No mass Back Exam: normal inspection, normal range of motion, No CVA tenderness, No vertebral tenderness Extremity Exam: normal inspection, normal range of motion, pelvis stable Neurologic Exam: alert, oriented x 3, cooperative, normal mood/affect, nml cerebellar function, sensation nml, No motor deficits Skin Exam: normal color, warm, dry Lymphatic Exam: No adenopathy SpO2 Interpretation: normal SpO2: 100 O2 Delivery: Room Air - Course Nursing assessment & vital signs reviewed: Yes - CT Exams Abdomen/Pelvis CT Interpretation: Tele-radiologist Report (New moderate pericardial effusion. No gross acute findings. Again respiration artifact and emphysema) Ordered Tests: Active Orders 24 hr Category Date Time Status IV Insertion STAT Care 09/18/23 17:59 Active ABDOMEN AND PELVIS W/0 CONTRAS [CT] Stat Exams 09/18/23 17:59 Taken CBC W DIFF Stat Lab 09/18/23 18:29 Completed CMP Stat Lab 09/18/23 18:29 Completed LIPASE Stat Lab 09/18/23 18:29 Completed Lactic Acid Stat Lab 09/18/23 18:45 Completed TROPONIN Q4H Lab 09/18/23 18:29 Completed TROPONIN Q4H Lab 09/18/23 22:00 Completed TROPONIN Q4H Lab 09/19/23 02:00 Ordered UA W/RFX UR CULTURE Stat Lab 09/18/23 17:59 Ordered Medication Summary Generic Name Dose Route Start Last Admin Trade Name Freq PRN Reason Stop Dose Admin Sodium Chloride 1,000 mls @ 50 mls/hr 09/18/23 18:00 09/18/23 18:45 Sodium Chloride 0.9% 1000 Ml IV 10/18/23 17:59 50 mls/hr .Q20H YOBANY Administration Discontinued Medications Generic Name Dose Route Start Last Admin Trade Name Freq PRN Reason Stop Dose Admin Morphine Sulfate 2 mg 09/18/23 17:59 09/18/23 18:51 Morphine Sulfate 2 Mg/Ml Inj IV 09/18/23 18:00 2 mg STAT ONE Administration Morphine Sulfate Confirm 09/18/23 18:40 Morphine Sulfate 2 Mg/Ml Inj Administered 09/18/23 18:41 Dose 2 mg .ROUTE .STK-MED ONE Morphine Sulfate 4 mg 09/18/23 22:19 09/18/23 22:26 Morphine Sulfate 4 Mg/Ml Injection IV 09/18/23 22:20 4 mg STAT ONE Administration Morphine Sulfate Confirm 09/18/23 22:22 Morphine Sulfate 4 Mg/Ml Injection Administered 09/18/23 22:23 Dose 4 mg .ROUTE .STK-MED ONE Ondansetron HCl 4 mg 09/18/23 17:59 09/18/23 18:49 Ondansetron Hcl 4 Mg/2 Ml Vial IV 09/18/23 18:00 4 mg STAT ONE Administration Ondansetron HCl Confirm 09/18/23 18:40 Ondansetron Hcl 4 Mg/2 Ml Vial Administered 09/18/23 18:41 Dose 4 mg .ROUTE .STK-MED ONE Lab/Rad Data: Laboratory Result Diagrams 09/18/23 18:29 09/18/23 18:29 Laboratory Results 09/18/23 09/18/23 09/18/23 Range/Units 22:00 20:15 18:45 WBC (4.0-10.5) x10^3/uL RBC (4.1-5.4) x10^6/uL Hgb (12.0-16.0) g/dL Hct (35-47) % MCV (78-100) fL MCH (26-32) pg MCHC (32-36) g/dL RDW (11.5-14.0) % Plt Count (150-450) x10^3/uL MPV (7.5-11.0) fL Gran % (36.0-66.0) % Immature Gran % (Auto) (0.00-0.4) % Nucleat RBC Rel Count (0.00-0.1) % Eos # (Auto) (0-0.5) x10^3/uL Immature Gran # (Auto) (0.00-0.03) x10^3u/L Absolute Lymphs (auto) (1.0-4.6) x10^3/uL Absolute Monos (auto) (0.0-1.3) x10^3/uL Absolute Nucleated RBC (0.00-0.01) x10^3u/L Lymphocytes % (24.0-44.0) % Monocytes % (0.0-12.0) % Eosinophils % (0.00-5.0) % Basophils % (0.0-0.4) % Absolute Granulocytes (1.4-6.9) x10^3/uL Basophils # (0-0.4) x10^3/uL Sodium (137-145) mmol/L Potassium (3.5-5.1) mmol/L Chloride (98-107) mmol/L Carbon Dioxide (22-30) mmol/L Anion Gap (5-15) MEQ/L BUN (7-17) mg/dL Creatinine (0.52-1.04) mg/dL Estimated GFR ML/MIN Glucose (74-106) mg/dL Lactic Acid 1.3 (0.4-2.0) Calcium (8.4-10.2) mg/dL Total Bilirubin (0.2-1.3) mg/dL AST (14-36) U/L ALT (0-35) U/L Alkaline Phosphatase (38-126) U/L Troponin I 0.026 (0.000-0.034) ng/mL Serum Total Protein (6.3-8.2) g/dL Albumin (3.5-5.0) g/dL Lipase (23-300) U/L Influenza Type A Ag NEGATIVE (NEGATIVE) Influenza Type B Ag NEGATIVE (NEGATIVE) RSV (PCR) NEGATIVE (NEGATIVE) SARS-CoV-2 (PCR) NEGATIVE (NEGATIVE) Group A Strep Antibody NOT DETECTED (NEGATIVE) 09/18/23 09/18/23 09/18/23 Range/Units 18:29 18:29 18:29 WBC 6.7 (4.0-10.5) x10^3/uL RBC 3.20 L (4.1-5.4) x10^6/uL Hgb 9.2 L (12.0-16.0) g/dL Hct 30.0 L (35-47) % MCV 93.8 (78-100) fL MCH 28.8 (26-32) pg MCHC 30.7 L (32-36) g/dL RDW 15.9 H (11.5-14.0) % Plt Count 269 (150-450) x10^3/uL MPV 11.1 H (7.5-11.0) fL Gran % 62.1 (36.0-66.0) % Immature Gran % (Auto) 0.3 (0.00-0.4) % Nucleat RBC Rel Count 0.0 (0.00-0.1) % Eos # (Auto) 0.27 (0-0.5) x10^3/uL Immature Gran # (Auto) 0.02 (0.00-0.03) x10^3u/L Absolute Lymphs (auto) 1.67 (1.0-4.6) x10^3/uL Absolute Monos (auto) 0.51 (0.0-1.3) x10^3/uL Absolute Nucleated RBC 0.00 (0.00-0.01) x10^3u/L Lymphocytes % 25.0 (24.0-44.0) % Monocytes % 7.6 (0.0-12.0) % Eosinophils % 4.0 (0.00-5.0) % Basophils % 1.0 (0.0-0.4) % Absolute Granulocytes 4.15 (1.4-6.9) x10^3/uL Basophils # 0.07 (0-0.4) x10^3/uL Sodium 138 (137-145) mmol/L Potassium 5.3 H (3.5-5.1) mmol/L Chloride 113 H (98-107) mmol/L Carbon Dioxide 17 L (22-30) mmol/L Anion Gap 14.4 (5-15) MEQ/L BUN 34 H (7-17) mg/dL Creatinine 3.09 H (0.52-1.04) mg/dL Estimated GFR 16.2 ML/MIN Glucose 100 (74-106) mg/dL Lactic Acid (0.4-2.0) Calcium 8.6 (8.4-10.2) mg/dL Total Bilirubin 0.50 (0.2-1.3) mg/dL AST 14 (14-36) U/L ALT 11 (0-35) U/L Alkaline Phosphatase 107 (38-126) U/L Troponin I 0.020 (0.000-0.034) ng/mL Serum Total Protein 6.8 (6.3-8.2) g/dL Albumin 4.0 (3.5-5.0) g/dL Lipase 227 (23-300) U/L Influenza Type A Ag (NEGATIVE) Influenza Type B Ag (NEGATIVE) RSV (PCR) (NEGATIVE) SARS-CoV-2 (PCR) (NEGATIVE) Group A Strep Antibody (NEGATIVE) - Progress Progress: improved Progress Note: Case discussed with Dr. Crain cardiothoracic surgeon from [facility] who advises transfer to see a dialysis registered nurse and director plans for abnormal kidney function. Patient auto accepted by Dr. Baker at 20 2:26 PM. Patient is a 67-year-old female presents to our ED for evaluation of right lower abdominal pain. Patient states she had been vomiting the day prior. No trauma no fever. CT abdomen pelvis reveals an incidental moderate-sized pericardial effusion. Creatinine elevated at 3.0. Metabolic acidosis with a bicarb of 17. COVID RSV flu negative. Plan of care discussed with patient. Patient agrees to transfer to [facility] for further evaluation and treatment. Portions of this note were created with voice recognition technology. There may be grammatical, spelling, punctuation or sound alike errors Complexity of problem addressed is moderate acute complicated No critical care time Complexity of data reviewed and analyzed is extensive. Test ordered test reviewed. Results analyzed and correlated clinically with history and physical examination. Management discussed with Dr. Crain. Risk of complication and or risk morbidity/mortality of patient management is high. Patient requires hospitalization/transfer to higher level of care Vital stable. Time spent to transfer patient is approximately 20 minutes. Plan of care established for shared decision making. No social determinants of health present impede follow-up. Portions of this note were created with voice recognition technology. There may be grammatical, spelling, punctuation or sound alike errors 09/18/23 23:15 Counseled pt/family regarding: lab results, diagnosis, rad results - Departure Departure Disposition: Transfer Clinical Impression: Abdominal pain, Pericardial effusion, Acute renal injury, Metabolic acidosis, Normocytic anemia Condition: Stable Critical Care Time: No Referrals: CARL NICHOLSON MD [Primary Care Provider] - Follow up/PCP as directed
[2023-09-18] MEDS ORDERED: MORPHINE SULFATE 2 MG INJ ONE (18:40)
[2023-09-18] MEDS ORDERED: Zofran 4 MG/2 ML VIAL ONE (18:40)
[2023-09-18] MEDS ORDERED: Sodium Chloride 0.9% 1000 ML 1,000 ML ONE (18:41)
[2023-09-18 18:55] LABS: Absolute Neutrophil Ct (ANC) 4.15 x10^3/uL (1.4-6.9); Basophil (Absolute #) 0.07 x10^3/uL (0-0.4); Eosinophil (Absolute #) 0.27 x10^3/uL (0-0.5); Hemoglobin 9.2 g/dL (12.0-16.0); IMMATURE GRAN # 0.02 x10^3u/L (0.00-0.03); IMMATURE GRAN % 0.3 % (0.00-0.4); Lymphocyte (Absolute #) 1.67 x10^3/uL (1.0-4.6); Mean Cell Volume 93.8 fL (78-100); Mean Corpuscular Hemoglobin 28.8 pg (26-32); Mean Corpuscular Hgb Concent. 30.7 g/dL (32-36); Mean Platelet Volume 11.1 fL (7.5-11.0); Monocyte (Absolute #) 0.51 x10^3/uL (0.0-1.3); Monocytes % 7.6 % (0.0-12.0); Neutrophil % 62.1 % (36.0-66.0); Platelet Count 269 x10^3/uL (150-450); Red Cell Distribution Width 15.9 % (11.5-14.0); White Blood Count 6.7 x10^3/uL (4.0-10.5)
[2023-09-18 19:09] LABS: ANION GAP 14.4 MEQ/L (5-15); BILIRUBIN,TOTAL 0.5 mg/dL (0.2-1.3); Calcium 8.6 mg/dL (8.4-10.2); Creatinine 1 3.09 mg/dL (0.52-1.04); EST GLOMERULAR FILTRATION RATE 16.2 ML/MIN; Potassium 5.3 mmol/L (3.5-5.1); Total Protein 6.8 g/dL (6.3-8.2)
[2023-09-18 20:38] VITALS: TEMP 99
[2023-09-18 20:50] LABS: Group A Strep NOT DETECTED (NEGATIVE)
[2023-09-18 21:09] LABS: INFLUENZA A NEGATIVE (NEGATIVE); INFLUENZA B NEGATIVE (NEGATIVE); RESPIRATORY SYNCTIAL VIRUS NEGATIVE (NEGATIVE); SARS-CoV-2 Xpert Express NEGATIVE (NEGATIVE)
[2023-09-18] MEDS ORDERED: MORPHINE SULFATE 4 MG INJ IV ONE (22:19)
[2023-09-18] MEDS ORDERED: MORPHINE SULFATE 4 MG INJ ONE (22:22)
[2023-09-18 23:09] VITALS: BP 197/95; PULSE 71; RESP 20
[2023-09-18 23:15] VITALS: O2SAT 100
--- NOTE | 2023-09-19 08:54 | XRAY ---
Indication: Abdomen pain. Multiple contiguous axial images obtained through the abdomen and pelvis without contrast. Comparison: October 10, 2018 Study is slightly degraded by respiration artifact. Lung bases again demonstrate pulmonary emphysema with scattered fibrosis/scarring. Heart now borderline enlarged with new small pericardial effusion. Noncontrasted stomach and bowel loops appear nonobstructed. Appendix not clearly visualized. No free fluid/air. Left lower kidney again demonstrates 7 mm round well-circumscribed hyperdense lesion, possible complex slightly viscus cyst. Remaining liver, gallbladder, pancreas, spleen, adrenal glands, kidneys, ureters, bladder, and uterus are unremarkable for noncontrast exam. Again moderate scattered aortoiliac calcifications without AAA. Osseous structures intact with osteopenia, minimal degenerative changes throughout the lumbar spine, and minimal dextroscoliosis. Impression: 1. Respiration artifact. 2. New pericardial effusion better evaluated with echocardiogram. 3. Chronic findings including pulmonary emphysema, pulmonary fibrosis/scarring, complex left renal cyst, arteriosclerotic disease, and chronic bony findings. 4. Remaining CT abdomen/pelvis without contrast exam grossly negative.
== END 2023-09-18 23:10 | disposition short-term general hospital (02) ==
LOC: ED 17:38
DX: N17.9 Acute kidney failure, unspecified (principal); I31.39 Other pericardial effusion (noninflammatory); E87.20 Acidosis, unspecified; D64.9 Anemia, unspecified; R10.31 Right lower quadrant pain; I10 Essential (primary) hypertension; Z79.899 Other long term (current) drug therapy; Z28.310 Unvaccinated for COVID-19; Z72.0 Tobacco use; Z20.828 Contact with and (suspected) exposure to other viral communicable diseases
CPT/HCPCS: 0241U; 36415; 74176; 80053; 83605; 83690; 84484; 85025; 87651; 96374; 96375; 99285; J2270; J2405

== ENCOUNTER 2025-01-19 15:36 | Emergency (ER) | payer BC ==
[2025-01-19] MEDS ORDERED: BENADRYL 50 MG/ML IM ONE (16:20)
[2025-01-19] MEDS ORDERED: Hydromorphone 1 mg/ml Injection IM ONE (16:20)
[2025-01-19] MEDS ORDERED: TYLENOL 325 MG PO ONE (16:20)
[2025-01-19] MEDS ORDERED: Inapsine 5 MG/2 ML IM ONE (16:20)
[2025-01-19] MEDS ORDERED: APRESOLINE 20 MG/ML INJ IV ONE (18:40)
--- NOTE | 2025-01-19 20:40 | XRAY ---
Indication: Epigastric pain. Multiple contiguous axial images obtained through the abdomen and pelvis without contrast. Comparison: None Lung bases demonstrates pulmonary emphysema and small bibasilar effusions/atelectasis. Heart is enlarged with small pericardial effusion and mitral valve calcifications. Also mild diffuse anasarca. Noncontrasted stomach and bowel loops appear nonobstructed. Small bowel loops demonstrates mild/moderate circumferential wall thickening, especially duodenum and jejunum favoring enteritis. Normal appendix. Uterus atrophic or surgically absent. Free fluid/air. Remaining liver, gallbladder, pancreas, spleen, adrenal glands, kidneys, ureters, and bladder are unremarkable for noncontrast exam. Mild/moderate scattered aortoiliac calcifications without AAA. Osseous structures intact with osteopenia and minimal dextroscoliosis centered at L2. No ventral or inguinal hernias. Impression: 1. Cardiomegaly with pericardial effusion and mitral valve calcifications. Also small bilateral effusions and diffuse anasarca. Rule out cardiac decompensation/CHF. 2. Small bowel circumferential wall thickening favoring enteritis. 3. Chronic findings including pulmonary emphysema, arteriosclerotic disease, and chronic bony findings.
[2025-01-19] MEDS ORDERED: Hydromorphone 1 mg/ml Injection IV ONE (22:49)
[2025-01-19] MEDS: Zofran 4 MG/2 ML VIAL IV ONE (22:59)
[2025-01-19] MEDS ORDERED: Zofran 4 MG/2 ML VIAL IV ONE (22:59)
[2025-01-20 13:37] LABS: Creatinine 1 4.53 mg/dL (0.52-1.04); Potassium 4.5 mmol/L (3.5-5.1)
[2025-01-20 13:38] LABS: Total Protein 5.7 g/dL (6.3-8.2)
[2025-01-20 13:39] LABS: ALBUMIN 3.4 g/dL (3.5-5.0); ANION GAP 17.8 MEQ/L (5-15); BILIRUBIN,TOTAL 0.5 mg/dL (0.2-1.3); Calcium 7.5 mg/dL (8.4-10.2); White Blood Count 6.5 x10^3/uL (3.98-10.04)
[2025-01-20 13:40] LABS: Hematocrit 33.7 % (34.1-44.9); Hemoglobin 10.7 g/dL (11.2-15.7)
[2025-01-20 13:57] LABS: BASOPHIL % 0.5 % (0.1-1.2); Eosinophil % 1.1 % (0.7-5.8); IMMATURE GRAN % 0.3 % (0.001-0.429); Lymphocytes % 13.7 % (19.3-51.7); Mean Cell Volume 91.1 fL (79.4-94.8); Mean Corpuscular Hemoglobin 28.9 pg (25.6-32.2); Mean Corpuscular Hgb Concent. 31.8 g/dL (32.2-35.5); Mean Platelet Volume 10.9 fL (9.4-12.3); Monocytes % 7.1 % (4.7-12.5); Neutrophil % 77.3 % (34.0-71.1); Platelet Count 167 x10^3/uL (182-369); Red Cell Distribution Width 17.1 % (11.7-14.4)
[2025-01-20 14:03] LABS: Absolute Neutrophil Ct (ANC) 5.03 x10^3/uL (1.56-6.13); Basophil (Absolute #) 0.03 x10^3/uL (0.01-0.08); Eosinophil (Absolute #) 0.07 x10^3/uL (0.04-0.36); IMMATURE GRAN # 0.02 x10^3u/L (0.001-0.031); Lymphocyte (Absolute #) 0.89 x10^3/uL (1.18-3.74); Monocyte (Absolute #) 0.46 x10^3/uL (0.24-0.86)
== END 2025-01-19 23:19 | disposition home or self-care (01) ==
LOC: UNMERGE 15:36 → MERGE 15:36 → ED 15:36
DX: I10 Essential (primary) hypertension (principal); R77.8 Other specified abnormalities of plasma proteins; R10.9 Unspecified abdominal pain; Z72.0 Tobacco use
CPT/HCPCS: 36415; 74176; 80053; 83690; 84484; 85025; 93005; 96372; 96374; 96375; 96376; 99282; 99284; 99285; J0360; J1171; J1200; J1790; J2405; A9270-GY